=== PATIENT | male | born 1960 | race Caucasian/White ===

== ENCOUNTER 2020-04-20 11:02 | Inpatient (IN) | payer OTHER ==
[2020-04-20 11:29] VITALS: BMI 27.3
[2020-04-20 13:34] LABS: BASO % 0.2 % (0-2.0); EOS % 0.3 % (0-4.5); HEMATOCRIT 34.6 % (35.4-49); HEMOGLOBIN 11.3 GM/dL (11.7-16.9); LYMPH % 16.2 % (8-40); MCH 29.3 pg (25.7-33.7); MCHC 32.7 g/dl (32.0-35.9); MEAN CELL VOLUME 89.6 fl (80-96); MEAN PLT VOLUME 9.4 fl (7.5-11.1); MONO % 7.4 % (3.8-10.2); NEUT % 75.9 % (42.8-82.8); PLATELET COUNT 233 K/MM3 (134-434); RBC 3.86 M/mm3 (4.00-5.60); RDW 13.7 % (11.9-15.9); WHITE BLOOD COUNT 6.6 K/mm3 (4.0-10.0)
[2020-04-20 13:58] LABS: POTASSIUM 4.1 mmol/L (3.5-5.1)
[2020-04-20 14:00] LABS: ALBUMIN 2.9 g/dl (3.4-5.0); CALCIUM 8.8 mg/dL (8.5-10.1)
[2020-04-20 14:01] LABS: BLOOD UREA NITROGEN 25.2 mg/dL (7-18)
[2020-04-20 14:04] LABS: CREATININE 0.2 mg/dL (0.55-1.3)
[2020-04-20 14:05] LABS: BILIRUBIN,TOTAL 0.3 mg/dL (0.2-1)
[2020-04-20] MEDS ORDERED: VANCOMYCIN HCL 1,500 MG in DEXTROSE 5%-WATER - 500 ML IVPB ONE (14:31)
[2020-04-20] MEDS ORDERED: oxyCODONE HCL 5 MG TABLET PO ONE (16:10)
[2020-04-20] MEDS: GABAPENTIN 400 MG CAPSULE PO SCH ×2 (16:15→22:32)
[2020-04-20] MEDS ORDERED: oxyCODONE HCL 5 MG TABLET ONE (16:18)
[2020-04-20] MEDS ORDERED: traMADol HCL 50 MG TABLET PO PRN (18:34)
[2020-04-20] MEDS ORDERED: PATIENT'S OWN MEDICATION (NON-FORMULARY) (Gabapentin [Gabapentin] 800 MG Tablet) PO SCH (22:00)
[2020-04-20] MEDS: BACLOFEN 10 MG TABLET (FP) PO SCH (22:32)
[2020-04-20] MEDS ORDERED: ZOLPIDEM TARTRATE 5 MG TABLET PO ONE (23:10)
[2020-04-21] MEDS: GABAPENTIN 400 MG CAPSULE PO SCH ×3 (06:23→22:21)
[2020-04-21 09:16] LABS: HEMATOCRIT 34.1 % (35.4-49); HEMOGLOBIN 11.4 GM/dL (11.7-16.9); MCH 29.8 pg (25.7-33.7); MCHC 33.4 g/dl (32.0-35.9); MEAN CELL VOLUME 89.2 fl (80-96); MEAN PLT VOLUME 9.6 fl (7.5-11.1); PLATELET COUNT 237 K/MM3 (134-434); RBC 3.82 M/mm3 (4.00-5.60); RDW 13.8 % (11.9-15.9); WHITE BLOOD COUNT 7.9 K/mm3 (4.0-10.0)
[2020-04-21 09:32] LABS: POTASSIUM 3.9 mmol/L (3.5-5.1)
[2020-04-21 09:42] LABS: CALCIUM 8.5 mg/dL (8.5-10.1); MAGNESIUM 2.4 mg/dL (1.8-2.4)
[2020-04-21 09:43] LABS: ALBUMIN 2.9 g/dl (3.4-5.0)
[2020-04-21 09:45] LABS: CREATININE 0.3 mg/dL (0.55-1.3)
[2020-04-21 09:53] LABS: BILIRUBIN,TOTAL 0.4 mg/dL (0.2-1)
[2020-04-21] MEDS ORDERED: TIZANIDINE HCL 2 MG TABLET PO PRN (09:54)
[2020-04-21] MEDS ORDERED: LIDOCAINE 5% TOPICAL PATCH TP SCH (10:00)
[2020-04-21] MEDS ORDERED: TRAMADOL PO SCH (10:00)
[2020-04-21] MEDS ORDERED: NAPROXEN 500 MG TABLET PO SCH (10:00)
[2020-04-21] MEDS ORDERED: VANCOMYCIN 1 GM in D5W (PRE-DOCKED) 1,000 MG/250 ML IVPB SCH (10:00)
[2020-04-21] MEDS: BACLOFEN 10 MG TABLET (FP) PO SCH ×2 (10:38→22:21)
[2020-04-21] MEDS: CEFAZOLIN 2 GM/D5W 2 GM/50 ML ML IVPB SCH ×2 (10:39→17:16)
[2020-04-21] MEDS: ENOXAPARIN NA (PORCINE) 40 MG/0.4 ML DISP.SYRIN SQ SCH (10:39)
[2020-04-21] MEDS ORDERED: ACETAMINOPHEN 500 MG TABLET (FP) PO SCH (14:00)
[2020-04-21] MEDS: VANCOMYCIN 1 GRAM (PRE-DOCKED) 1,000 MG/250 ML BAG IVPB SCH (17:30)
[2020-04-21] MEDS ORDERED: LIDOCAINE PATCH REMOVAL MC SCH (22:00)
[2020-04-21] MEDS ORDERED: ZOLPIDEM TARTRATE 5 MG TABLET PO PRN (22:41)
[2020-04-21] MEDS ORDERED: oxyCODONE HCL 10 MG SUSTAINED ACTING TABLET PO ONE (23:15)
[2020-04-22] MEDS: CEFAZOLIN 2 GM/D5W 2 GM/50 ML ML IVPB SCH ×3 (01:57→17:17)
[2020-04-22] MEDS: VANCOMYCIN 1 GRAM (PRE-DOCKED) 1,000 MG/250 ML BAG IVPB SCH ×2 (06:33→17:58)
[2020-04-22] MEDS: GABAPENTIN 400 MG CAPSULE PO SCH ×3 (06:42→21:15)
[2020-04-22] MEDS: BACLOFEN 10 MG TABLET (FP) PO SCH ×2 (09:39→21:14)
[2020-04-22] MEDS: ENOXAPARIN NA (PORCINE) 40 MG/0.4 ML DISP.SYRIN SQ SCH (09:39)
[2020-04-22] MEDS ORDERED: ACETAMINOPHEN 325 MG TABLET (FP) PO PRN (10:25)
[2020-04-22] MEDS: oxyCODONE HCL 5 MG TABLET PO PRN ×2 (11:12→22:00)
[2020-04-22] MEDS: COLLAGENASE CLOSTRIDIUM HIST. 30 GRAMS TUBE TP SCH (11:13)
[2020-04-22] MEDS: AMINO ACIDS/PROTEIN HYDROLYS 30 ML LIQUID.PKT PO SCH (16:50)
[2020-04-22] MEDS: ZOLPIDEM TARTRATE 5 MG TABLET PO SCH (21:15)
[2020-04-23] MEDS: CEFAZOLIN 2 GM/D5W 2 GM/50 ML ML IVPB SCH ×2 (01:20→09:09)
[2020-04-23] MEDS: GABAPENTIN 400 MG CAPSULE PO SCH ×3 (05:21→21:10)
[2020-04-23] MEDS: VANCOMYCIN 1 GRAM (PRE-DOCKED) 1,000 MG/250 ML BAG IVPB SCH (05:39)
[2020-04-23] MEDS: VANCOMYCIN 1,000 MG in DEXTROSE 5%-WATER - 250 ML IVPB SCH (07:23)
[2020-04-23] MEDS: MULTIVIT-MINERALS ORAL LIQUID PO SCH (09:09)
[2020-04-23] MEDS: AMINO ACIDS/PROTEIN HYDROLYS 30 ML LIQUID.PKT PO SCH ×2 (09:09→17:56)
[2020-04-23] MEDS: BACLOFEN 10 MG TABLET (FP) PO SCH ×2 (09:10→21:10)
[2020-04-23] MEDS: ENOXAPARIN NA (PORCINE) 40 MG/0.4 ML DISP.SYRIN SQ SCH (09:10)
[2020-04-23] MEDS: oxyCODONE HCL 5 MG TABLET PO PRN (10:06)
[2020-04-23] MEDS: oxyCODONE HCL 5 MG TABLET PO SCH (14:28)
[2020-04-23] MEDS: COLLAGENASE CLOSTRIDIUM HIST. 30 GRAMS TUBE TP SCH (15:22)
[2020-04-23] MEDS ORDERED: PIPERACILLIN/TAZOBACTAM 3.375 GM VIAL IVPB ONE (17:32)
[2020-04-23] MEDS ORDERED: DEXTROSE 5%-WATER - 50 ML IVPB ONE (17:33)
[2020-04-23] MEDS: PIPERACILLIN/TAZOB 3.375 GM 3.375 GM in DEXTROSE 5%-WATER - 50 ML IVPB SCH (17:56)
[2020-04-23] MEDS ORDERED: traMADol HCL 50 MG TABLET PO SCH (20:00)
[2020-04-23] MEDS: ZOLPIDEM TARTRATE 5 MG TABLET PO SCH (23:14)
[2020-04-24] MEDS ORDERED: PIPERACILLIN/TAZOBACTAM 3.375 GM VIAL IVPB ONE ×4 (02:41→18:15)
[2020-04-24] MEDS ORDERED: DEXTROSE 5%-WATER - 50 ML IVPB ONE ×3 (02:41→17:16)
[2020-04-24] MEDS: PIPERACILLIN/TAZOB 3.375 GM 3.375 GM in DEXTROSE 5%-WATER - 50 ML IVPB SCH ×4 (02:44→17:36)
[2020-04-24] MEDS: GABAPENTIN 400 MG CAPSULE PO SCH ×3 (06:02→21:20)
[2020-04-24] MEDS: oxyCODONE HCL 5 MG TABLET PO SCH ×3 (06:02→15:18)
[2020-04-24 08:25] LABS: BASO % 0.5 % (0-2.0); EOS % 2.4 % (0-4.5); HEMATOCRIT 34.4 % (35.4-49); HEMOGLOBIN 11.2 GM/dL (11.7-16.9); LYMPH % 17.3 % (8-40); MCHC 32.7 g/dl (32.0-35.9); MEAN CELL VOLUME 88.9 fl (80-96); MEAN PLT VOLUME 9.1 fl (7.5-11.1); MONO % 8.3 % (3.8-10.2); NEUT % 71.5 % (42.8-82.8); PLATELET COUNT 235 K/MM3 (134-434); RBC 3.87 M/mm3 (4.00-5.60); RDW 13.8 % (11.9-15.9); WHITE BLOOD COUNT 7.8 K/mm3 (4.0-10.0)
[2020-04-24 09:02] LABS: POTASSIUM 3.8 mmol/L (3.5-5.1)
[2020-04-24 09:08] LABS: ALBUMIN 2.9 g/dl (3.4-5.0); BLOOD UREA NITROGEN 18.6 mg/dL (7-18); CALCIUM 8.7 mg/dL (8.5-10.1)
[2020-04-24 09:10] LABS: CREATININE 0.3 mg/dL (0.55-1.3)
[2020-04-24 09:12] LABS: BILIRUBIN,TOTAL 0.3 mg/dL (0.2-1); TOT PROT 6.8 g/dl (6.4-8.2)
[2020-04-24] MEDS: AMINO ACIDS/PROTEIN HYDROLYS 30 ML LIQUID.PKT PO SCH ×2 (09:17→17:24)
[2020-04-24] MEDS: MULTIVIT-MINERALS ORAL LIQUID PO SCH (09:17)
[2020-04-24] MEDS: BACLOFEN 10 MG TABLET (FP) PO SCH ×2 (09:17→21:21)
[2020-04-24] MEDS: ENOXAPARIN NA (PORCINE) 40 MG/0.4 ML DISP.SYRIN SQ SCH (10:39)
[2020-04-24] MEDS: COLLAGENASE CLOSTRIDIUM HIST. 30 GRAMS TUBE TP SCH (10:39)
[2020-04-24 11:55] LABS: ERYTHROCYTE SEDIMENTATION RATE 70 mm/hr (0-20)
[2020-04-24] MEDS ORDERED: MAGNESIUM HYDROX 2400MG/30ML ORAL SUSPENSION 30 ML CUP PO PRN ×2 (17:23→19:48)
[2020-04-24] MEDS ORDERED: LIDOCAINE HCL 1%, 10 MG/ML (20ML VIAL) ONE (18:05)
[2020-04-24] MEDS ORDERED: MIDAZOLAM HCL 2 MG/2 ML SINGLE DOSE VIAL ONE ×2 (18:32)
[2020-04-24] MEDS ORDERED: LIDOCAINE HCL 1%, 10 MG/ML (20ML VIAL) NR ONE (18:38)
[2020-04-24] MEDS: traMADol HCL 50 MG TABLET PO SCH (20:20)
[2020-04-24] MEDS: ZOLPIDEM TARTRATE 5 MG TABLET PO SCH (21:20)
[2020-04-24] MEDS: SENNOSIDES/DOCUSATE COMBO (SENNA PLUS) TABLET (UD) PO SCH (21:21)
[2020-04-24] MEDS ORDERED: SENNOSIDES/DOCUSATE COMBO (SENNA PLUS) TABLET (UD) PO SCH (22:00)
[2020-04-25] MEDS ORDERED: PIPERACILLIN/TAZOBACTAM 3.375 GM VIAL IVPB ONE ×3 (00:48→17:56)
[2020-04-25] MEDS ORDERED: DEXTROSE 5%-WATER - 50 ML IVPB ONE ×3 (00:48→17:56)
[2020-04-25] MEDS: PIPERACILLIN/TAZOB 3.375 GM 3.375 GM in DEXTROSE 5%-WATER - 50 ML IVPB SCH ×3 (01:02→17:59)
[2020-04-25] MEDS: GABAPENTIN 400 MG CAPSULE PO SCH ×3 (05:47→22:37)
[2020-04-25] MEDS: oxyCODONE HCL 5 MG TABLET PO SCH ×3 (06:03→17:58)
[2020-04-25 08:18] LABS: BASO % 0.5 % (0-2.0); EOS % 1.1 % (0-4.5); HEMATOCRIT 34.9 % (35.4-49); HEMOGLOBIN 11.2 GM/dL (11.7-16.9); LYMPH % 11.3 % (8-40); MCH 28.7 pg (25.7-33.7); MCHC 32.1 g/dl (32.0-35.9); MEAN CELL VOLUME 89.3 fl (80-96); MONO % 5.8 % (3.8-10.2); NEUT % 81.3 % (42.8-82.8); PLATELET COUNT 243 K/MM3 (134-434); RBC 3.91 M/mm3 (4.00-5.60); RDW 13.5 % (11.9-15.9); WHITE BLOOD COUNT 8.6 K/mm3 (4.0-10.0)
[2020-04-25 08:26] LABS: POTASSIUM 3.9 mmol/L (3.5-5.1)
[2020-04-25 08:32] LABS: ALBUMIN 3.1 g/dl (3.4-5.0); BLOOD UREA NITROGEN 22.8 mg/dL (7-18); CALCIUM 8.4 mg/dL (8.5-10.1)
[2020-04-25 08:35] LABS: BILIRUBIN,TOTAL 0.4 mg/dL (0.2-1); CREATININE 0.2 mg/dL (0.55-1.3); TOT PROT 7.3 g/dl (6.4-8.2)
[2020-04-25] MEDS: ACETAMINOPHEN 325 MG TABLET (FP) PO PRN (09:33)
[2020-04-25] MEDS: AMINO ACIDS/PROTEIN HYDROLYS 30 ML LIQUID.PKT PO SCH ×2 (09:34→17:59)
[2020-04-25] MEDS: BACLOFEN 10 MG TABLET (FP) PO SCH ×2 (09:34→22:37)
[2020-04-25] MEDS ORDERED: PT OWN MED DRAWER 7, Y5N ONE ×2 (09:36→14:52)
[2020-04-25] MEDS: MULTIVIT-MINERALS ORAL LIQUID PO SCH (09:37)
[2020-04-25] MEDS: ENOXAPARIN NA (PORCINE) 40 MG/0.4 ML DISP.SYRIN SQ SCH (09:38)
[2020-04-25] MEDS: COLLAGENASE CLOSTRIDIUM HIST. 30 GRAMS TUBE TP SCH ×2 (11:13→18:00)
[2020-04-25] MEDS: SENNOSIDES/DOCUSATE COMBO (SENNA PLUS) TABLET (UD) PO SCH (22:37)
[2020-04-25] MEDS: traMADol HCL 50 MG TABLET PO SCH (22:37)
[2020-04-25] MEDS: ZOLPIDEM TARTRATE 5 MG TABLET PO SCH (22:38)
[2020-04-26] MEDS ORDERED: PIPERACILLIN/TAZOBACTAM 3.375 GM VIAL IVPB ONE ×3 (01:57→16:26)
[2020-04-26] MEDS ORDERED: DEXTROSE 5%-WATER - 50 ML IVPB ONE ×3 (01:57→16:26)
[2020-04-26] MEDS: PIPERACILLIN/TAZOB 3.375 GM 3.375 GM in DEXTROSE 5%-WATER - 50 ML IVPB SCH ×3 (02:00→17:23)
[2020-04-26] MEDS: GABAPENTIN 400 MG CAPSULE PO SCH ×3 (06:16→21:34)
[2020-04-26] MEDS: oxyCODONE HCL 5 MG TABLET PO SCH ×2 (06:16→14:55)
[2020-04-26 08:13] LABS: BASO % 0.6 % (0-2.0); HEMATOCRIT 34.5 % (35.4-49); HEMOGLOBIN 11.2 GM/dL (11.7-16.9); LYMPH % 21.7 % (8-40); MCH 28.8 pg (25.7-33.7); MCHC 32.5 g/dl (32.0-35.9); MEAN CELL VOLUME 88.7 fl (80-96); MEAN PLT VOLUME 9.3 fl (7.5-11.1); MONO % 10.5 % (3.8-10.2); NEUT % 65.2 % (42.8-82.8); PLATELET COUNT 214 K/MM3 (134-434); RDW 13.5 % (11.9-15.9); WHITE BLOOD COUNT 6.4 K/mm3 (4.0-10.0)
[2020-04-26 08:23] LABS: INR 1.19 (0.83-1.09); PROTHROMBIN TIME (PATIENT) 14.3 SEC (9.7-13.0)
[2020-04-26 08:25] LABS: POTASSIUM 3.6 mmol/L (3.5-5.1)
[2020-04-26 08:48] LABS: ALBUMIN 2.9 g/dl (3.4-5.0); BLOOD UREA NITROGEN 23.9 mg/dL (7-18); CALCIUM 8.8 mg/dL (8.5-10.1)
[2020-04-26 08:52] LABS: CREATININE 0.3 mg/dL (0.55-1.3)
[2020-04-26 08:53] LABS: BILIRUBIN,TOTAL 0.4 mg/dL (0.2-1); TOT PROT 6.8 g/dl (6.4-8.2)
[2020-04-26] MEDS: AMINO ACIDS/PROTEIN HYDROLYS 30 ML LIQUID.PKT PO SCH ×2 (10:24→17:23)
[2020-04-26] MEDS: ENOXAPARIN NA (PORCINE) 40 MG/0.4 ML DISP.SYRIN SQ SCH (10:24)
[2020-04-26] MEDS: BACLOFEN 10 MG TABLET (FP) PO SCH ×2 (10:24→21:33)
[2020-04-26] MEDS ORDERED: PT OWN MED DRAWER 7, Y5N ONE (10:31)
[2020-04-26] MEDS: MULTIVIT-MINERALS ORAL LIQUID PO SCH (10:31)
[2020-04-26] MEDS: COLLAGENASE CLOSTRIDIUM HIST. 30 GRAMS TUBE TP SCH (14:58)
[2020-04-26] MEDS: ZOLPIDEM TARTRATE 5 MG TABLET PO SCH (21:33)
[2020-04-26] MEDS: traMADol HCL 50 MG TABLET PO SCH (21:33)
[2020-04-26] MEDS: SENNOSIDES/DOCUSATE COMBO (SENNA PLUS) TABLET (UD) PO SCH (21:34)
[2020-04-27] MEDS ORDERED: DEXTROSE 5%-WATER - 50 ML IVPB ONE ×2 (01:22→09:23)
[2020-04-27] MEDS ORDERED: PIPERACILLIN/TAZOBACTAM 3.375 GM VIAL IVPB ONE ×2 (01:22→09:23)
[2020-04-27] MEDS: PIPERACILLIN/TAZOB 3.375 GM 3.375 GM in DEXTROSE 5%-WATER - 50 ML IVPB SCH ×2 (01:25→09:34)
[2020-04-27] MEDS: ACETAMINOPHEN 325 MG TABLET (FP) PO PRN (01:31)
[2020-04-27] MEDS: oxyCODONE HCL 5 MG TABLET PO SCH ×2 (06:43→14:35)
[2020-04-27] MEDS: GABAPENTIN 400 MG CAPSULE PO SCH ×2 (06:44→14:37)
[2020-04-27 06:50] VITALS: BP 121/58; PULSE 59; TEMP 98.2
[2020-04-27] MEDS: AMINO ACIDS/PROTEIN HYDROLYS 30 ML LIQUID.PKT PO SCH (08:29)
[2020-04-27 08:59] LABS: BASO % 0.8 % (0-2.0); EOS % 1.9 % (0-4.5); HEMATOCRIT 32.3 % (35.4-49); HEMOGLOBIN 10.6 GM/dL (11.7-16.9); LYMPH % 20.8 % (8-40); MCH 29.4 pg (25.7-33.7); MEAN CELL VOLUME 89.2 fl (80-96); MEAN PLT VOLUME 9.1 fl (7.5-11.1); MONO % 9.6 % (3.8-10.2); NEUT % 66.9 % (42.8-82.8); PLATELET COUNT 219 K/MM3 (134-434); RBC 3.62 M/mm3 (4.00-5.60); RDW 13.9 % (11.9-15.9); WHITE BLOOD COUNT 5.6 K/mm3 (4.0-10.0)
[2020-04-27 09:15] LABS: POTASSIUM 3.7 mmol/L (3.5-5.1)
[2020-04-27 09:24] LABS: ALBUMIN 2.9 g/dl (3.4-5.0); CALCIUM 8.5 mg/dL (8.5-10.1)
[2020-04-27 09:25] LABS: BLOOD UREA NITROGEN 20.8 mg/dL (7-18)
[2020-04-27 09:28] LABS: CREATININE 0.3 mg/dL (0.55-1.3)
[2020-04-27 09:29] LABS: BILIRUBIN,TOTAL 0.6 mg/dL (0.2-1); TOT PROT 6.8 g/dl (6.4-8.2)
[2020-04-27] MEDS: BACLOFEN 10 MG TABLET (FP) PO SCH (09:33)
[2020-04-27] MEDS: MULTIVIT-MINERALS ORAL LIQUID PO SCH (09:33)
[2020-04-27] MEDS: ENOXAPARIN NA (PORCINE) 40 MG/0.4 ML DISP.SYRIN SQ SCH (09:33)
[2020-04-27] MEDS: COLLAGENASE CLOSTRIDIUM HIST. 30 GRAMS TUBE TP SCH (12:00)
== END 2020-04-27 15:35 | disposition home health service (06) | DRG 982 ==
LOC: JER 11:02 → JERBED 14:47 → J8W 20:32
PROVIDERS: ATTEND Student in an Organized Health Care Education/Training Program
PROC: 0LBN0ZZ Excision of Right Lower Leg Tendon, Open Approach (ICD-10-PCS; principal; 2020-04-24 18:30)
PROC: 2W1LX6Z Compression of Right Lower Extremity using Pressure Dressing (ICD-10-PCS; 2020-04-27)
DX: L97.219 Non-pressure chronic ulcer of right calf with unspecified severity (principal); G82.20 Paraplegia, unspecified; L03.115 Cellulitis of right lower limb; E78.5 Hyperlipidemia, unspecified; M62.838 Other muscle spasm; G47.00 Insomnia, unspecified; N31.9 Neuromuscular dysfunction of bladder, unspecified
CPT/HCPCS: 36415; 71045-TC-FY; 80053; 83735; 84100; 85025; 85027; 85610; 85651; 87040; 87070; 87186; 87205; 88304-TC; 93005; 93010; 94760; 99285-25; C9803; E0372; G0463-25; J0475; U0003

== ENCOUNTER 2020-06-17 20:03 | Inpatient (IN) | payer OTHER ==
[2020-06-17] MEDS ORDERED: RAPID SEQUENCE INTUBATION KIT NR ONE (20:45)
[2020-06-17] MEDS ORDERED: SODIUM CHLORIDE 0.9% 1000 ML INFUS.BAG IV ONE (21:03)
[2020-06-17] MEDS ORDERED: MIDAZOLAM 100 MG in SODIUM CHLORIDE 100 ML IVPB SCH (21:15)
[2020-06-17] MEDS ORDERED: FENTANYL NS IVPB 500 MCG/100 ML BAG IVPB ONE (21:29)
[2020-06-17 21:35] LABS: BASO % 0.2 % (0-2.0); EOS % 0.1 % (0-4.5); HEMATOCRIT 38.5 % (35.4-49); HEMOGLOBIN 12.5 GM/dL (11.7-16.9); LYMPH % 2.6 % (8-40); MCH 29.3 pg (25.7-33.7); MCHC 32.4 g/dl (32.0-35.9); MEAN CELL VOLUME 90.4 fl (80-96); MEAN PLT VOLUME 10.1 fl (7.5-11.1); MONO % 7.7 % (3.8-10.2); NEUT % 89.4 % (42.8-82.8); PLATELET COUNT 182 K/MM3 (134-434); RBC 4.26 M/mm3 (4.00-5.60); RDW 13.5 % (11.9-15.9); WHITE BLOOD COUNT 28.1 K/mm3 (4.0-10.0)
[2020-06-17] MEDS ORDERED: MIDAZOLAM 100 MG/100 ML MG IVPB ONE (21:36)
[2020-06-17] MEDS ORDERED: PROPOFOL 200 MG/20 ML VIAL IVPUSH ONE (21:39)
[2020-06-17] MEDS ORDERED: ROCURONIUM BROMIDE 50 MG/5 ML SYRINGE IV ONE (21:39)
[2020-06-17 21:42] LABS: INR 1.28 (0.83-1.09); PROTHROMBIN TIME (PATIENT) 15.4 SEC (9.7-13.0)
[2020-06-17 21:45] LABS: ACTIVATED PTT 36.5 SECONDS (25.2-36.5)
[2020-06-17] MEDS ORDERED: VANCOMYCIN 1 GM in D5W (PRE-DOCKED) 1,000 MG/250 ML IVPB ONE (21:48)
[2020-06-17] MEDS ORDERED: PIPERACILLIN/TAZOB 4.5 GM 4.5 GM in DEXTROSE 5%-WATER 100 ML IVPB ONE (21:48)
[2020-06-17] MEDS ORDERED: PIPERACILLIN/TAZOB 4.5 GM 4.5 GM/100 ML BAG IVPB ONE (21:56)
[2020-06-17] MEDS: FENTANYL NS IVPB 500 MCG/100 ML BAG IVPB SCH (21:59)
[2020-06-17 22:00] LABS: CHLORIDE 99 mmol/L (98-107); POTASSIUM 3.6 mmol/L (3.5-5.1); SODIUM 135 mmol/L (136-145)
[2020-06-17 22:02] LABS: CALCIUM 8.5 mg/dL (8.5-10.1)
[2020-06-17 22:03] LABS: ALBUMIN 3.2 g/dl (3.4-5.0); ANION GAP 6 MMOL/L (8-16); BLOOD UREA NITROGEN 13.7 mg/dL (7-18); CO2 30 mmol/L (21-32); GLUCOSE,RANDOM 105 mg/dL (74-106)
[2020-06-17 22:06] LABS: BILIRUBIN,DIRECT 0.3 mg/dL (0.0-0.2); CREATININE 0.4 mg/dL (0.55-1.3); SGOT/AST 34 U/L (15-37); SGPT/ALT 41 U/L (13-61)
[2020-06-17 22:08] LABS: BILIRUBIN,TOTAL 0.4 mg/dL (0.2-1); TOT PROT 7.6 g/dl (6.4-8.2)
[2020-06-17 22:09] LABS: ALK PHOS 139 U/L (45-117)
[2020-06-17 22:13] LABS: ANISOCYTOSIS 0; MACROCYTOSIS 0; PLATELET ESTIMATE NORMAL
[2020-06-17 22:14] LABS: LDH 159 U/L (87-246)
[2020-06-17 22:46] LABS: ARTERIAL BLD GAS O2 SATURATION 83.9 mmHg (95-98); ARTERIAL BLOOD GAS BASE EXCESS 1.6 mmol/L (-2-2); ARTERIAL BLOOD GAS PO2 50.3 mmHg (80-100); ARTERIAL BLOOD GAS pH 7.364 (7.350-7.450)
[2020-06-17 22:47] LABS: ALLENS TEST POSITIVE; VENT MODE A/C; VENT RATE 12
[2020-06-17] MEDS ORDERED: NIFEdipine E.R. 30 MG TABLET ONE (23:09)
[2020-06-17] MEDS ORDERED: APIXABAN 5 MG TABLET ONE (23:09)
[2020-06-17] MEDS ORDERED: CARVEDILOL 3.125 MG TABLET (FP) ONE (23:09)
[2020-06-17 23:14] LABS: EPI CELLS 0 /uL (0-25.1); HYALINE CASTS 1 /uL (0-3.1); URINE APPEARANCE TURBID; URINE BACTERIA >9,000 /uL (0-1359); URINE BILIRUBIN NEGATIVE (NEGATIVE); URINE COLOR DK YELLOW; URINE GLUCOSE (UA) NEGATIVE (NEGATIVE); URINE KETONE TRACE (NEGATIVE); URINE LEUK ESTERASE 2+ (NEGATIVE); URINE NITRITE NEGATIVE (NEGATIVE); URINE PROTEIN 3+ (NEGATIVE); URINE RBC 3901 /uL (0-23.9); URINE UROBILINOGEN 0.2 mg/dL (0.2-1.0); URINE WBC 3035 /uL (0-25.8)
[2020-06-17] MEDS: MIDAZOLAM 100 MG/100 ML MG IVPB SCH (23:45)
[2020-06-18] MEDS: CHLORHEXIDINE GLUCONATE 4% CLEANSER FOR DECOLONIZATION TP SCH ×2 (00:30→22:07)
[2020-06-18] MEDS ORDERED: PNEUMOC 13-VAL CONJ-DIP CRM/PF 0.5 ML DISP.SYRIN IM ONE (00:34)
[2020-06-18] MEDS: MUPIROCIN 2% TOPICAL OINTMENT FOR DECOLONIZATION NS SCH ×3 (00:35→22:07)
[2020-06-18] MEDS: VANCOMYCIN HCL 1,250 MG in DEXTROSE 5%-WATER - 250 ML IVPB SCH ×3 (02:31→18:25)
[2020-06-18 07:07] LABS: BASO % 0.2 % (0-2.0); HEMATOCRIT 34.3 % (35.4-49); LYMPH % 3.6 % (8-40); MCH 29.1 pg (25.7-33.7); MCHC 32.2 g/dl (32.0-35.9); MEAN CELL VOLUME 90.4 fl (80-96); MEAN PLT VOLUME 10.5 fl (7.5-11.1); MONO % 8.1 % (3.8-10.2); NEUT % 88.1 % (42.8-82.8); PLATELET COUNT 167 K/MM3 (134-434); RBC 3.79 M/mm3 (4.00-5.60); RDW 13.5 % (11.9-15.9)
[2020-06-18 07:15] LABS: INR 1.45 (0.83-1.09); PROTHROMBIN TIME (PATIENT) 17.4 SEC (9.7-13.0)
[2020-06-18 07:17] LABS: ACTIVATED PTT 31.7 SECONDS (25.2-36.5)
[2020-06-18] MEDS: HEPARIN NA (PORCINE) 5,000 UNITS/ML 1ML VIAL SQ SCH ×3 (07:31→22:07)
[2020-06-18 07:32] LABS: POTASSIUM 3.2 mmol/L (3.5-5.1)
[2020-06-18 07:35] LABS: ALBUMIN 2.6 g/dl (3.4-5.0); BLOOD UREA NITROGEN 18.2 mg/dL (7-18); CALCIUM 8.1 mg/dL (8.5-10.1)
[2020-06-18 07:41] LABS: BILIRUBIN,TOTAL 0.9 mg/dL (0.2-1); CREATININE 0.3 mg/dL (0.55-1.3)
[2020-06-18] MEDS: MIDAZOLAM 100 MG/100 ML MG IVPB SCH ×3 (08:45→22:07)
[2020-06-18 08:46] LABS: ALLENS TEST POSITIVE; ARTERIAL BLD GAS O2 SATURATION 98.4 mmHg (95-98); ARTERIAL BLOOD GAS BASE EXCESS 1.5 mmol/L (-2-2); ARTERIAL BLOOD GAS PO2 123.1 mmHg (80-100); ARTERIAL BLOOD GAS pH 7.389 (7.350-7.450)
[2020-06-18 08:47] LABS: VENT MODE A/C; VENT RATE 12
[2020-06-18 08:57] LABS: ANISOCYTOSIS 0; MACROCYTOSIS 0; PLATELET ESTIMATE NORMAL
[2020-06-18] MEDS: KCL 10 MEQ IVPB 10 MEQ/100 ML INFUS.BAG IVPB SCH ×3 (09:00→11:00)
[2020-06-18] MEDS: FENTANYL NS IVPB 500 MCG/100 ML BAG IVPB SCH ×4 (09:00→22:07)
[2020-06-18] MEDS: PANTOPRAZOLE SODIUM 40 MG VIAL IVPUSH SCH (10:00)
[2020-06-18] MEDS ORDERED: PIPERACILLIN/TAZOBACTAM 4.5 GM VIAL IVPB ONE ×3 (10:10→22:02)
[2020-06-18] MEDS ORDERED: DEXTROSE 5%-WATER 100 ML IVPB ONE ×3 (10:10→22:02)
[2020-06-18] MEDS: PIPERACILLIN/TAZOB 4.5 GM 4.5 GM in DEXTROSE 5%-WATER 100 ML IVPB SCH ×2 (11:00→18:26)
[2020-06-18] MEDS ORDERED: PNEUMOCOCCAL 23 VACCINE 0.5 ML VIAL IM ONE (13:00)
[2020-06-18] MEDS: AMINO ACIDS/PROTEIN HYDROLYS 30 ML LIQUID.PKT PO SCH (18:23)
[2020-06-18] MEDS: VANCOMYCIN/WATER 1,250 MG/250 ML BAG IVPB SCH ×2 (22:20→22:21)
[2020-06-19] MEDS: MIDAZOLAM 100 MG/100 ML MG IVPB SCH ×2 (01:01→23:13)
[2020-06-19] MEDS: PIPERACILLIN/TAZOB 4.5 GM 4.5 GM in DEXTROSE 5%-WATER 100 ML IVPB SCH ×2 (01:02→23:07)
[2020-06-19] MEDS ORDERED: PT OWN MED DRAWER 7, Y5N ONE (05:15)
[2020-06-19] MEDS: HEPARIN NA (PORCINE) 5,000 UNITS/ML 1ML VIAL SQ SCH ×3 (05:19→23:12)
[2020-06-19] MEDS ORDERED: VANCOMYCIN HCL 1,250 MG in DEXTROSE 5%-WATER - 250 ML IVPB SCH (06:00)
[2020-06-19] MEDS ORDERED: FENTANYL NS IVPB 500 MCG/100 ML BAG IVPB ONE (07:34)
[2020-06-19 07:51] LABS: HEMATOCRIT 34.6 % (35.4-49); HEMOGLOBIN 11.3 GM/dL (11.7-16.9); MCH 29.7 pg (25.7-33.7); MCHC 32.6 g/dl (32.0-35.9); MEAN CELL VOLUME 90.9 fl (80-96); MEAN PLT VOLUME 10.2 fl (7.5-11.1); PLATELET COUNT 143 K/MM3 (134-434); RDW 13.7 % (11.9-15.9); WHITE BLOOD COUNT 19.3 K/mm3 (4.0-10.0)
[2020-06-19 08:16] LABS: CALCIUM 8.1 mg/dL (8.5-10.1)
[2020-06-19 08:17] LABS: ALBUMIN 2.2 g/dl (3.4-5.0); BLOOD UREA NITROGEN 32.9 mg/dL (7-18); MAGNESIUM 2.1 mg/dL (1.8-2.4)
[2020-06-19 08:20] LABS: BILIRUBIN,TOTAL 0.5 mg/dL (0.2-1); CREATININE 1.3 mg/dL (0.55-1.3); PHOSPHOROUS 4.4 mg/dL (2.5-4.9); TOT PROT 5.9 g/dl (6.4-8.2)
[2020-06-19] MEDS: PANTOPRAZOLE SODIUM 40 MG VIAL IVPUSH SCH (10:17)
[2020-06-19] MEDS: MUPIROCIN 2% TOPICAL OINTMENT FOR DECOLONIZATION NS SCH ×2 (10:17→23:13)
[2020-06-19] MEDS: AMINO ACIDS/PROTEIN HYDROLYS 30 ML LIQUID.PKT PO SCH ×2 (10:17→17:26)
[2020-06-19] MEDS: DEXAMETHASONE SOD PHOSPHATE 10 MG/1 ML VIAL IVPUSH SCH (11:56)
[2020-06-19] MEDS ORDERED: DEXTROSE 5%-WATER - 50 ML IVPB ONE ×2 (16:05→17:14)
[2020-06-19] MEDS ORDERED: PIPERACILLIN/TAZOBACTAM 3.375 GM VIAL IVPB ONE ×2 (16:05→17:13)
[2020-06-19] MEDS: PIPERACILLIN/TAZOB 3.375 GM 3.375 GM in DEXTROSE 5%-WATER - 50 ML IVPB SCH ×2 (16:09→17:26)
[2020-06-19] MEDS ORDERED: ACETAMINOPHEN 1000 MG/100 ML VIAL (NON FORMULARY) IVPB ONE (18:05)
[2020-06-19] MEDS ORDERED: ACETAMINOPHEN INJECTION 100 ML IVPB ONE (18:06)
[2020-06-19] MEDS ORDERED: SODIUM CHLORIDE 0.9% 500 ML INFUS.BAG IV ONE (21:19)
[2020-06-19] MEDS: VANCOMYCIN/WATER 1,250 MG/250 ML BAG IVPB SCH (23:07)
[2020-06-19] MEDS: FENTANYL NS IVPB 500 MCG/100 ML BAG IVPB SCH (23:08)
[2020-06-19] MEDS: CHLORHEXIDINE GLUCONATE 4% CLEANSER FOR DECOLONIZATION TP SCH (23:13)
[2020-06-19] MEDS ORDERED: SODIUM CHLORIDE 1,000 ML IV SCH (23:45)
[2020-06-20] MEDS ORDERED: PIPERACILLIN/TAZOBACTAM 3.375 GM VIAL IVPB ONE ×3 (00:45→17:11)
[2020-06-20] MEDS ORDERED: DEXTROSE 5%-WATER - 50 ML IVPB ONE ×3 (00:45→17:12)
[2020-06-20] MEDS: PIPERACILLIN/TAZOB 3.375 GM 3.375 GM in DEXTROSE 5%-WATER - 50 ML IVPB SCH ×3 (01:39→18:30)
[2020-06-20] MEDS: HEPARIN NA (PORCINE) 5,000 UNITS/ML 1ML VIAL SQ SCH ×3 (05:59→21:49)
[2020-06-20 07:05] LABS: HEMOGLOBIN 10.6 GM/dL (11.7-16.9); MCH 29.5 pg (25.7-33.7); MEAN CELL VOLUME 89.3 fl (80-96); PLATELET COUNT 149 K/MM3 (134-434); RBC 3.58 M/mm3 (4.00-5.60); RDW 13.6 % (11.9-15.9); WHITE BLOOD COUNT 11.1 K/mm3 (4.0-10.0)
[2020-06-20 07:22] LABS: POTASSIUM 4.4 mmol/L (3.5-5.1)
[2020-06-20 07:25] LABS: ALBUMIN 2.1 g/dl (3.4-5.0); BLOOD UREA NITROGEN 49.6 mg/dL (7-18); MAGNESIUM 2.8 mg/dL (1.8-2.4)
[2020-06-20 07:28] LABS: BILIRUBIN,TOTAL 0.4 mg/dL (0.2-1); CREATININE 2.1 mg/dL (0.55-1.3); PHOSPHOROUS 4.5 mg/dL (2.5-4.9)
[2020-06-20 07:29] LABS: TOT PROT 5.9 g/dl (6.4-8.2)
[2020-06-20] MEDS ORDERED: SODIUM CHLORIDE 500 ML IV STA (08:51)
[2020-06-20] MEDS: AMINO ACIDS/PROTEIN HYDROLYS 30 ML LIQUID.PKT PO SCH ×2 (08:54→18:30)
[2020-06-20] MEDS ORDERED: PT OWN MED DRAWER 7, Y5N ONE ×2 (09:38→17:11)
[2020-06-20] MEDS: DEXAMETHASONE SOD PHOSPHATE 10 MG/1 ML VIAL IVPUSH SCH (11:53)
[2020-06-20] MEDS: PANTOPRAZOLE SODIUM 40 MG VIAL IVPUSH SCH (11:53)
[2020-06-20] MEDS: MUPIROCIN 2% TOPICAL OINTMENT FOR DECOLONIZATION NS SCH (11:54)
[2020-06-20] MEDS ORDERED: SODIUM CHLORIDE 1,000 ML IV SCH (12:15)
[2020-06-20] MEDS ORDERED: PROPOFOL 200 MG/20 ML VIAL IVPUSH PRN (17:52)
[2020-06-20] MEDS ORDERED: DEXMEDETOMIDINE IN 0.9 % NACL 200 MCG/50 ML EACH IVPB SCH (20:00)
[2020-06-20] MEDS: CHLORHEXIDINE GLUCONATE 4% CLEANSER FOR DECOLONIZATION TP SCH (21:49)
[2020-06-20] MEDS ORDERED: MIDAZOLAM HCL 2 MG/2 ML SINGLE DOSE VIAL IVPUSH ONE (22:50)
[2020-06-20] MEDS ORDERED: MIDAZOLAM HCL 2 MG/2 ML SINGLE DOSE VIAL ONE (22:52)
[2020-06-21] MEDS: PIPERACILLIN/TAZOB 3.375 GM 3.375 GM in DEXTROSE 5%-WATER - 50 ML IVPB SCH ×3 (02:23→17:32)
[2020-06-21] MEDS: MIDAZOLAM 100 MG/100 ML MG IVPB SCH (07:23)
[2020-06-21] MEDS: HEPARIN NA (PORCINE) 5,000 UNITS/ML 1ML VIAL SQ SCH ×3 (07:23→21:50)
[2020-06-21 07:41] LABS: HEMATOCRIT 31.8 % (35.4-49); HEMOGLOBIN 10.5 GM/dL (11.7-16.9); MCH 29.5 pg (25.7-33.7); MEAN CELL VOLUME 89.2 fl (80-96); MEAN PLT VOLUME 10.4 fl (7.5-11.1); PLATELET COUNT 190 K/MM3 (134-434); RBC 3.57 M/mm3 (4.00-5.60); RDW 13.8 % (11.9-15.9); WHITE BLOOD COUNT 12.8 K/mm3 (4.0-10.0)
[2020-06-21 08:10] LABS: POTASSIUM 4.4 mmol/L (3.5-5.1)
[2020-06-21 08:14] LABS: CALCIUM 7.8 mg/dL (8.5-10.1)
[2020-06-21 08:15] LABS: ALBUMIN 2.1 g/dl (3.4-5.0); MAGNESIUM 3.2 mg/dL (1.8-2.4)
[2020-06-21 08:17] LABS: CREATININE 2.6 mg/dL (0.55-1.3)
[2020-06-21 08:18] LABS: PHOSPHOROUS 4.5 mg/dL (2.5-4.9)
[2020-06-21 08:19] LABS: BILIRUBIN,TOTAL 0.4 mg/dL (0.2-1)
[2020-06-21] MEDS: AMINO ACIDS/PROTEIN HYDROLYS 30 ML LIQUID.PKT PO SCH ×2 (09:00→16:55)
[2020-06-21] MEDS ORDERED: DEXTROSE 5%-WATER - 50 ML IVPB ONE ×2 (09:51→16:44)
[2020-06-21] MEDS ORDERED: PIPERACILLIN/TAZOBACTAM 3.375 GM VIAL IVPB ONE ×2 (09:51→16:43)
[2020-06-21] MEDS: DEXAMETHASONE SOD PHOSPHATE 10 MG/1 ML VIAL IVPUSH SCH (09:59)
[2020-06-21] MEDS: PANTOPRAZOLE SODIUM 40 MG VIAL IVPUSH SCH (09:59)
[2020-06-21] MEDS: MUPIROCIN 2% TOPICAL OINTMENT FOR DECOLONIZATION NS SCH ×2 (10:04→21:50)
[2020-06-21] MEDS: DEXTROSE 5%-0.45% SALINE 1,000 ML IV SCH (11:50)
[2020-06-21] MEDS: CHLORHEXIDINE GLUCONATE 4% CLEANSER FOR DECOLONIZATION TP SCH (21:50)
[2020-06-22] MEDS ORDERED: DEXTROSE 5%-WATER - 50 ML IVPB ONE ×3 (01:23→17:28)
[2020-06-22] MEDS ORDERED: PIPERACILLIN/TAZOBACTAM 3.375 GM VIAL IVPB ONE ×3 (01:23→17:27)
[2020-06-22] MEDS: PIPERACILLIN/TAZOB 3.375 GM 3.375 GM in DEXTROSE 5%-WATER - 50 ML IVPB SCH ×3 (02:51→17:46)
[2020-06-22] MEDS: HEPARIN NA (PORCINE) 5,000 UNITS/ML 1ML VIAL SQ SCH ×3 (06:50→21:25)
[2020-06-22] MEDS: MIDAZOLAM 100 MG/100 ML MG IVPB SCH (06:51)
[2020-06-22 07:33] LABS: BASO % 0.1 % (0-2.0); HEMATOCRIT 30.7 % (35.4-49); HEMOGLOBIN 10.3 GM/dL (11.7-16.9); LYMPH % 7.3 % (8-40); MCH 29.6 pg (25.7-33.7); MCHC 33.6 g/dl (32.0-35.9); MEAN CELL VOLUME 88.1 fl (80-96); MEAN PLT VOLUME 9.4 fl (7.5-11.1); MONO % 12.7 % (3.8-10.2); NEUT % 79.9 % (42.8-82.8); PLATELET COUNT 231 K/MM3 (134-434); RBC 3.48 M/mm3 (4.00-5.60); RDW 13.3 % (11.9-15.9); WHITE BLOOD COUNT 13.5 K/mm3 (4.0-10.0)
[2020-06-22 07:49] LABS: POTASSIUM 3.8 mmol/L (3.5-5.1)
[2020-06-22 07:57] LABS: ALBUMIN 2.2 g/dl (3.4-5.0); BLOOD UREA NITROGEN 66.6 mg/dL (7-18); MAGNESIUM 3.1 mg/dL (1.8-2.4)
[2020-06-22 07:58] LABS: PHOSPHOROUS 4.5 mg/dL (2.5-4.9)
[2020-06-22 07:59] LABS: BILIRUBIN,TOTAL 0.3 mg/dL (0.2-1); CREATININE 2.8 mg/dL (0.55-1.3); TOT PROT 5.9 g/dl (6.4-8.2)
[2020-06-22] MEDS: AMINO ACIDS/PROTEIN HYDROLYS 30 ML LIQUID.PKT PO SCH ×2 (11:57→17:46)
[2020-06-22] MEDS: MUPIROCIN 2% TOPICAL OINTMENT FOR DECOLONIZATION NS SCH (11:57)
[2020-06-22] MEDS: DEXAMETHASONE SOD PHOSPHATE 10 MG/1 ML VIAL IVPUSH SCH (11:57)
[2020-06-22] MEDS: PANTOPRAZOLE SODIUM 40 MG VIAL IVPUSH SCH (11:57)
[2020-06-22] MEDS: DEXTROSE 5%-0.45% SALINE 1,000 ML IV SCH (11:58)
[2020-06-22] MEDS ORDERED: SODIUM CHLORIDE 1,000 ML IV SCH (12:00)
[2020-06-22] MEDS ORDERED: DEXMEDETOMIDINE IN 0.9 % NACL 200 MCG/50 ML EACH IVPB SCH (13:25)
[2020-06-22] MEDS ORDERED: amLODIPine BESYLATE 5 MG TABLET (FP) PO SCH (17:15)
[2020-06-22] MEDS ORDERED: DEXTROSE 5%-0.45% SALINE 1,000 ML IV SCH (20:12)
[2020-06-22] MEDS: BACLOFEN 10 MG TABLET (FP) PO SCH (21:26)
[2020-06-22] MEDS ORDERED: CHLORHEXIDINE GLUCONATE 4% CLEANSER FOR DECOLONIZATION TP SCH (22:00)
[2020-06-22] MEDS: SODIUM CHLORIDE 1,000 ML IV SCH (23:25)
[2020-06-23] MEDS ORDERED: DEXTROSE 5%-WATER - 50 ML IVPB ONE ×3 (01:04→17:12)
[2020-06-23] MEDS ORDERED: PIPERACILLIN/TAZOBACTAM 3.375 GM VIAL IVPB ONE ×2 (01:04→09:16)
[2020-06-23] MEDS: PIPERACILLIN/TAZOB 3.375 GM 3.375 GM in DEXTROSE 5%-WATER - 50 ML IVPB SCH ×2 (01:29→09:43)
[2020-06-23] MEDS: HEPARIN NA (PORCINE) 5,000 UNITS/ML 1ML VIAL SQ SCH ×3 (06:22→21:36)
[2020-06-23] MEDS: MUPIROCIN 2% TOPICAL OINTMENT FOR DECOLONIZATION NS SCH (07:10)
[2020-06-23] MEDS: FENTANYL NS IVPB 500 MCG/100 ML BAG IVPB SCH (07:10)
[2020-06-23] MEDS: PANTOPRAZOLE SODIUM 40 MG VIAL IVPUSH SCH (09:44)
[2020-06-23] MEDS: AMINO ACIDS/PROTEIN HYDROLYS 30 ML LIQUID.PKT PO SCH ×2 (09:44→17:36)
[2020-06-23] MEDS: amLODIPine BESYLATE 5 MG TABLET (FP) PO SCH (09:44)
[2020-06-23] MEDS: DEXAMETHASONE SOD PHOSPHATE 4 MG/1 ML VIAL IVPUSH SCH (09:44)
[2020-06-23] MEDS: BACLOFEN 10 MG TABLET (FP) PO SCH ×2 (09:45→23:01)
[2020-06-23] MEDS: MULTIVIT-MINERALS ORAL LIQUID PO SCH (09:46)
[2020-06-23] MEDS ORDERED: MULTIVIT-MINERALS ORAL LIQUID PO SCH (10:00)
[2020-06-23 10:05] LABS: HEMATOCRIT 30.7 % (35.4-49); HEMOGLOBIN 10.4 GM/dL (11.7-16.9); MCH 29.7 pg (25.7-33.7); MCHC 33.8 g/dl (32.0-35.9); PLATELET COUNT 239 K/MM3 (134-434); RBC 3.49 M/mm3 (4.00-5.60); RDW 13.4 % (11.9-15.9); WHITE BLOOD COUNT 9.6 K/mm3 (4.0-10.0)
[2020-06-23 10:24] LABS: POTASSIUM 3.3 mmol/L (3.5-5.1)
[2020-06-23 10:26] LABS: CALCIUM 7.8 mg/dL (8.5-10.1)
[2020-06-23 10:27] LABS: ALBUMIN 2.2 g/dl (3.4-5.0); BLOOD UREA NITROGEN 70.2 mg/dL (7-18)
[2020-06-23 10:30] LABS: CREATININE 2.5 mg/dL (0.55-1.3)
[2020-06-23 10:31] LABS: BILIRUBIN,TOTAL 0.2 mg/dL (0.2-1); TOT PROT 5.9 g/dl (6.4-8.2)
[2020-06-23] MEDS ORDERED: TRAMADOL PO SCH (12:00)
[2020-06-23] MEDS ORDERED: oxyCODONE HCL 5 MG TABLET PO PRN (12:56)
[2020-06-23] MEDS ORDERED: ACETAMINOPHEN 325 MG TABLET (FP) PO PRN (12:58)
[2020-06-23] MEDS: traMADol HCL 50 MG TABLET PO SCH ×2 (13:20→23:00)
[2020-06-23] MEDS ORDERED: PT OWN MED DRAWER 7, Y5N ONE (14:36)
[2020-06-23] MEDS: GABAPENTIN 400 MG CAPSULE PO SCH ×2 (14:54→23:00)
[2020-06-23] MEDS: SODIUM CHLORIDE 1,000 ML IV SCH ×2 (15:34→21:35)
[2020-06-23] MEDS ORDERED: PIPERACILLIN/TAZOBACTAM 2.25 GM VIAL IVPB ONE (17:12)
[2020-06-23] MEDS: PIPERACILLIN/TAZOB 2.25 GM 2.25 GM in DEXTROSE 5%-WATER - 50 ML IVPB SCH (17:36)
[2020-06-23] MEDS ORDERED: PATIENT'S OWN MEDICATION (NON-FORMULARY) (Baclofen [Baclofen] 20 MG Tablet) PO SCH (22:00)
[2020-06-23] MEDS ORDERED: ZOLPIDEM TARTRATE 5 MG TABLET PO PRN (22:00)
[2020-06-24] MEDS ORDERED: PIPERACILLIN/TAZOBACTAM 2.25 GM VIAL IVPB ONE ×3 (00:37→17:43)
[2020-06-24] MEDS ORDERED: DEXTROSE 5%-WATER - 50 ML IVPB ONE ×3 (00:38→17:43)
[2020-06-24] MEDS: PIPERACILLIN/TAZOB 2.25 GM 2.25 GM in DEXTROSE 5%-WATER - 50 ML IVPB SCH ×3 (01:48→17:47)
[2020-06-24] MEDS: SODIUM CHLORIDE 1,000 ML IV SCH ×2 (01:48→12:25)
[2020-06-24] MEDS ORDERED: PT OWN MED DRAWER 7, Y5N ONE (04:59)
[2020-06-24] MEDS: HEPARIN NA (PORCINE) 5,000 UNITS/ML 1ML VIAL SQ SCH ×3 (05:29→21:25)
[2020-06-24] MEDS: GABAPENTIN 400 MG CAPSULE PO SCH (05:29)
[2020-06-24] MEDS: PANTOPRAZOLE SODIUM 40 MG VIAL IVPUSH SCH (11:22)
[2020-06-24] MEDS: traMADol HCL 50 MG TABLET PO SCH ×2 (11:23→21:24)
[2020-06-24] MEDS: DEXAMETHASONE SOD PHOSPHATE 4 MG/1 ML VIAL IVPUSH SCH (11:24)
[2020-06-24] MEDS: AMINO ACIDS/PROTEIN HYDROLYS 30 ML LIQUID.PKT PO SCH ×2 (11:24→17:47)
[2020-06-24] MEDS: MULTIVIT-MINERALS ORAL LIQUID PO SCH (11:25)
[2020-06-24] MEDS ORDERED: oxyCODONE HCL 5 MG TABLET PO PRN (12:21)
[2020-06-24] MEDS: BACLOFEN 10 MG TABLET (FP) PO SCH ×2 (12:23→21:25)
[2020-06-24] MEDS: amLODIPine BESYLATE 5 MG TABLET (FP) PO SCH (12:25)
[2020-06-24 14:17] LABS: BASO % 0.2 % (0-2.0); EOS % 0.1 % (0-4.5); HEMATOCRIT 30.5 % (35.4-49); HEMOGLOBIN 10.1 GM/dL (11.7-16.9); LYMPH % 6.6 % (8-40); MCH 29.3 pg (25.7-33.7); MCHC 33.1 g/dl (32.0-35.9); MEAN CELL VOLUME 88.7 fl (80-96); MEAN PLT VOLUME 9.1 fl (7.5-11.1); MONO % 9.3 % (3.8-10.2); NEUT % 83.8 % (42.8-82.8); PLATELET COUNT 247 K/MM3 (134-434); RBC 3.44 M/mm3 (4.00-5.60); RDW 13.7 % (11.9-15.9); WHITE BLOOD COUNT 9.9 K/mm3 (4.0-10.0)
[2020-06-24 14:42] LABS: CALCIUM 7.9 mg/dL (8.5-10.1)
[2020-06-24 14:43] LABS: ALBUMIN 2.3 g/dl (3.4-5.0); BLOOD UREA NITROGEN 65.2 mg/dL (7-18); POTASSIUM 3.5 mmol/L (3.5-5.1)
[2020-06-24 14:46] LABS: CREATININE 2.1 mg/dL (0.55-1.3)
[2020-06-24 14:48] LABS: BILIRUBIN,TOTAL 0.2 mg/dL (0.2-1); TOT PROT 5.8 g/dl (6.4-8.2)
[2020-06-24] MEDS: GABAPENTIN 300 MG CAPSULE PO SCH ×2 (15:10→21:24)
[2020-06-24 16:55] LABS: ANISOCYTOSIS 0; MACROCYTOSIS 0; PLATELET ESTIMATE NORMAL
[2020-06-24] MEDS: SODIUM CHLORIDE 0.45% 1,000 ML IV SCH (17:00)
[2020-06-25] MEDS ORDERED: DEXTROSE 5%-WATER - 50 ML IVPB ONE ×3 (02:34→17:40)
[2020-06-25] MEDS ORDERED: PIPERACILLIN/TAZOBACTAM 2.25 GM VIAL IVPB ONE ×3 (02:34→17:40)
[2020-06-25] MEDS: PIPERACILLIN/TAZOB 2.25 GM 2.25 GM in DEXTROSE 5%-WATER - 50 ML IVPB SCH ×3 (02:37→17:45)
[2020-06-25] MEDS: HEPARIN NA (PORCINE) 5,000 UNITS/ML 1ML VIAL SQ SCH ×3 (05:50→21:22)
[2020-06-25] MEDS: GABAPENTIN 300 MG CAPSULE PO SCH ×3 (05:50→21:23)
[2020-06-25] MEDS: SODIUM CHLORIDE 0.45% 1,000 ML IV SCH ×2 (05:56→17:42)
[2020-06-25 09:31] LABS: BASO % 0.1 % (0-2.0); EOS % 0.1 % (0-4.5); HEMATOCRIT 28.5 % (35.4-49); HEMOGLOBIN 9.5 GM/dL (11.7-16.9); LYMPH % 13.3 % (8-40); MCH 29.2 pg (25.7-33.7); MCHC 33.3 g/dl (32.0-35.9); MEAN CELL VOLUME 87.8 fl (80-96); MEAN PLT VOLUME 9.1 fl (7.5-11.1); NEUT % 74.5 % (42.8-82.8); PLATELET COUNT 283 K/MM3 (134-434); RBC 3.25 M/mm3 (4.00-5.60); RDW 13.4 % (11.9-15.9)
[2020-06-25 09:58] LABS: POTASSIUM 3.3 mmol/L (3.5-5.1)
[2020-06-25 10:40] LABS: CALCIUM 7.5 mg/dL (8.5-10.1)
[2020-06-25 10:41] LABS: BLOOD UREA NITROGEN 61.7 mg/dL (7-18)
[2020-06-25 10:44] LABS: CREATININE 1.7 mg/dL (0.55-1.3)
[2020-06-25 10:59] LABS: ANISOCYTOSIS 0; HELMET CELLS 0; HOWELL-JOLLY BODIES 0; MACROCYTOSIS 0; OVALOCYTE 0; PLATELET ESTIMATE NORMAL; ROULEAU 0; SICKELED CELLS 0; TARGET CELLS 0; TEAR DROP CELLS 0; TOXIC GRANULATION 0
[2020-06-25] MEDS: AMINO ACIDS/PROTEIN HYDROLYS 30 ML LIQUID.PKT PO SCH ×2 (11:10→17:43)
[2020-06-25] MEDS: traMADol HCL 50 MG TABLET PO SCH ×2 (11:10→21:23)
[2020-06-25] MEDS: BACLOFEN 10 MG TABLET (FP) PO SCH ×2 (11:11→21:24)
[2020-06-25] MEDS: PANTOPRAZOLE SODIUM 40 MG VIAL IVPUSH SCH (11:11)
[2020-06-25] MEDS: DEXAMETHASONE SOD PHOSPHATE 4 MG/1 ML VIAL IVPUSH SCH (11:11)
[2020-06-25] MEDS: MULTIVIT-MINERALS ORAL LIQUID PO SCH (11:12)
[2020-06-25] MEDS: amLODIPine BESYLATE 5 MG TABLET (FP) PO SCH (11:45)
[2020-06-25] MEDS ORDERED: POTASSIUM CHLORIDE ORAL LIQUID 20 MEQ/15 ML PO ONE (14:33)
[2020-06-25 14:50] LABS: RETICULOCYTES 0.35 % (0.5-1.5)
[2020-06-25] MEDS: KCL 10 MEQ IVPB 10 MEQ/100 ML INFUS.BAG IVPB SCH ×4 (15:14→17:43)
[2020-06-26] MEDS ORDERED: PIPERACILLIN/TAZOBACTAM 2.25 GM VIAL IVPB ONE ×2 (01:46→10:36)
[2020-06-26] MEDS ORDERED: DEXTROSE 5%-WATER - 50 ML IVPB ONE ×2 (01:46→10:36)
[2020-06-26] MEDS: PIPERACILLIN/TAZOB 2.25 GM 2.25 GM in DEXTROSE 5%-WATER - 50 ML IVPB SCH ×3 (01:56→19:18)
[2020-06-26] MEDS: GABAPENTIN 300 MG CAPSULE PO SCH ×4 (05:47→21:29)
[2020-06-26] MEDS: HEPARIN NA (PORCINE) 5,000 UNITS/ML 1ML VIAL SQ SCH ×3 (05:47→21:29)
[2020-06-26] MEDS ORDERED: FLUMAZENIL 0.5 MG/5 ML VIAL IVPUSH ONE (08:50)
[2020-06-26] MEDS: NALOXONE HCL 0.4 MG/ML VIAL IVPUSH PRN ×3 (08:50→10:30)
[2020-06-26] MEDS ORDERED: NALOXONE HCL 0.4 MG/ML VIAL ONE ×2 (08:55→09:03)
[2020-06-26] MEDS: AMINO ACIDS/PROTEIN HYDROLYS 30 ML LIQUID.PKT PO SCH ×2 (09:00→19:18)
[2020-06-26 09:21] LABS: BASO % 0.2 % (0-2.0); EOS % 1.2 % (0-4.5); HEMOGLOBIN 9.8 GM/dL (11.7-16.9); LYMPH % 9.9 % (8-40); MCH 29.1 pg (25.7-33.7); MCHC 32.7 g/dl (32.0-35.9); MEAN CELL VOLUME 88.9 fl (80-96); MEAN PLT VOLUME 9.1 fl (7.5-11.1); MONO % 8.8 % (3.8-10.2); NEUT % 79.9 % (42.8-82.8); PLATELET COUNT 313 K/MM3 (134-434); RBC 3.38 M/mm3 (4.00-5.60); RDW 13.5 % (11.9-15.9)
[2020-06-26 09:45] LABS: INR 1.08 (0.83-1.09)
[2020-06-26 09:48] LABS: ARTERIAL BLD GAS O2 SATURATION 88.6 mmHg (95-98); ARTERIAL BLOOD GAS BASE EXCESS -4.6 mmol/L (-2-2); ARTERIAL BLOOD GAS PO2 68.1 mmHg (80-100)
[2020-06-26 09:56] LABS: ALLENS TEST POSITIVE
[2020-06-26 09:59] LABS: ARTERIAL BLOOD GAS pH 7.193 (7.350-7.450)
[2020-06-26 10:06] LABS: POTASSIUM 3.9 mmol/L (3.5-5.1)
[2020-06-26 10:18] LABS: BILIRUBIN,TOTAL 0.5 mg/dL (0.2-1); PHOSPHOROUS 5.7 mg/dL (2.5-4.9)
[2020-06-26 10:19] LABS: TOT PROT 5.8 g/dl (6.4-8.2)
[2020-06-26] MEDS ORDERED: FLUMAZENIL 0.5 MG/5 ML VIAL IVPUSH PRN (10:19)
[2020-06-26 10:20] LABS: CREATININE 1.5 mg/dL (0.55-1.3)
[2020-06-26 10:25] LABS: BLOOD UREA NITROGEN 57.3 mg/dL (7-18)
[2020-06-26 10:26] LABS: ALBUMIN 2.3 g/dl (3.4-5.0)
[2020-06-26 10:28] LABS: CALCIUM 7.6 mg/dL (8.5-10.1)
[2020-06-26] MEDS ORDERED: SODIUM CHLORIDE 0.9% 500 ML INFUS.BAG IV ONE (10:47)
[2020-06-26] MEDS: BACLOFEN 10 MG TABLET (FP) PO SCH ×2 (11:15→21:29)
[2020-06-26] MEDS: MULTIVIT-MINERALS ORAL LIQUID PO SCH (11:15)
[2020-06-26] MEDS: amLODIPine BESYLATE 5 MG TABLET (FP) PO SCH (11:15)
[2020-06-26] MEDS: traMADol HCL 50 MG TABLET PO SCH (11:16)
[2020-06-26] MEDS ORDERED: DEXMEDETOMIDINE IN 0.9 % NACL 200 MCG/50 ML EACH IVPB SCH ×3 (11:30→21:15)
[2020-06-26] MEDS: DOPAMINE 400 MG/D5W - 400,000 MCG/250 ML INFUS.BAG IVPB SCH (11:30)
[2020-06-26] MEDS ORDERED: MORPHINE SULFATE 2 MG/ML VIAL IVPUSH PRN ×2 (11:41→11:48)
[2020-06-26] MEDS ORDERED: morphine CARPU-JECT 4 MG/1 ML DISP.SYRIN IVPUSH PRN (11:42)
[2020-06-26 11:44] LABS: ANISOCYTOSIS 0; MACROCYTOSIS 0; PLATELET ESTIMATE NORMAL
[2020-06-26 12:08] LABS: ARTERIAL BLD GAS O2 SATURATION 92.3 mmHg (95-98); ARTERIAL BLOOD GAS BASE EXCESS -4.1 mmol/L (-2-2); ARTERIAL BLOOD GAS PO2 68.5 mmHg (80-100); ARTERIAL BLOOD GAS pH 7.321 (7.350-7.450)
[2020-06-26 12:13] LABS: VENT MODE A/C; VENT RATE 20
[2020-06-26] MEDS: DEXMEDETOMIDINE IN 0.9 % NACL 400 MCG/100 ML VIAL IVPB SCH (13:00)
[2020-06-26] MEDS: DEXAMETHASONE SOD PHOSPHATE 4 MG/1 ML VIAL IVPUSH SCH (13:00)
[2020-06-26] MEDS: PANTOPRAZOLE SODIUM 40 MG VIAL IVPUSH SCH (13:00)
[2020-06-26] MEDS ORDERED: NOREPINEPHRINE BITARTRATE 4,000 MCG in DEXTROSE 5%-WATER - 496 ML IV SCH (16:15)
[2020-06-26] MEDS ORDERED: ATROPINE SULFATE 1 MG/10 ML DISP.SYRIN IVPUSH ONE (16:17)
[2020-06-26] MEDS: SODIUM CHLORIDE 0.45% 1,000 ML IV SCH (18:12)
[2020-06-26] MEDS ORDERED: MIDAZOLAM HCL 2 MG/2 ML SINGLE DOSE VIAL ONE ×2 (20:37→23:26)
[2020-06-26] MEDS ORDERED: MIDAZOLAM HCL 2 MG/2 ML SINGLE DOSE VIAL IVPUSH ONE ×2 (21:04→23:26)
[2020-06-27] MEDS ORDERED: DEXTROSE 5%-WATER - 50 ML IVPB ONE ×4 (02:11→21:26)
[2020-06-27] MEDS ORDERED: PIPERACILLIN/TAZOBACTAM 2.25 GM VIAL IVPB ONE ×4 (02:12→21:26)
[2020-06-27] MEDS: PIPERACILLIN/TAZOB 2.25 GM 2.25 GM in DEXTROSE 5%-WATER - 50 ML IVPB SCH ×3 (02:36→17:38)
[2020-06-27] MEDS ORDERED: PROPOFOL 1,000,000 MCG/100 ML VIAL ONE (02:57)
[2020-06-27] MEDS: PROPOFOL 1,000,000 MCG/100 ML VIAL IVPB SCH (03:52)
[2020-06-27 06:29] LABS: ARTERIAL BLD GAS O2 SATURATION 99.4 mmHg (95-98); ARTERIAL BLOOD GAS BASE EXCESS -0.4 mmol/L (-2-2); ARTERIAL BLOOD GAS pH 7.434 (7.350-7.450)
[2020-06-27 06:42] LABS: ALLENS TEST POSITIVE; VENT MODE A/C; VENT RATE 20
[2020-06-27] MEDS: HEPARIN NA (PORCINE) 5,000 UNITS/ML 1ML VIAL SQ SCH ×3 (06:49→22:06)
[2020-06-27] MEDS: GABAPENTIN 300 MG CAPSULE PO SCH ×3 (06:49→22:06)
[2020-06-27] MEDS ORDERED: ACETAMINOPHEN INJECTION 100 ML IVPB ONE (06:50)
[2020-06-27] MEDS: AMINO ACIDS/PROTEIN HYDROLYS 30 ML LIQUID.PKT PO SCH ×2 (08:27→17:38)
[2020-06-27 08:57] LABS: HEMATOCRIT 31.9 % (35.4-49); HEMOGLOBIN 10.6 GM/dL (11.7-16.9); MCH 28.9 pg (25.7-33.7); MCHC 33.2 g/dl (32.0-35.9); MEAN CELL VOLUME 87.1 fl (80-96); MEAN PLT VOLUME 9.2 fl (7.5-11.1); PLATELET COUNT 329 K/MM3 (134-434); RBC 3.66 M/mm3 (4.00-5.60); RDW 13.4 % (11.9-15.9)
[2020-06-27] MEDS: MULTIVIT-MINERALS ORAL LIQUID PO SCH (09:01)
[2020-06-27] MEDS: DEXAMETHASONE SOD PHOSPHATE 4 MG/1 ML VIAL IVPUSH SCH (09:02)
[2020-06-27] MEDS: BACLOFEN 10 MG TABLET (FP) PO SCH ×2 (09:03→22:06)
[2020-06-27] MEDS: PANTOPRAZOLE SODIUM 40 MG VIAL IVPUSH SCH (09:03)
[2020-06-27 09:15] LABS: POTASSIUM 3.1 mmol/L (3.5-5.1)
[2020-06-27 09:18] LABS: ALBUMIN 2.3 g/dl (3.4-5.0); CALCIUM 7.8 mg/dL (8.5-10.1); MAGNESIUM 1.7 mg/dL (1.8-2.4)
[2020-06-27 09:21] LABS: CREATININE 1.2 mg/dL (0.55-1.3); PHOSPHOROUS 3.1 mg/dL (2.5-4.9)
[2020-06-27 09:23] LABS: BILIRUBIN,TOTAL 0.8 mg/dL (0.2-1); TOT PROT 5.9 g/dl (6.4-8.2)
[2020-06-27] MEDS ORDERED: POTASSIUM CHLORIDE ORAL LIQUID 20 MEQ/15 ML PO ONE (12:00)
[2020-06-27] MEDS ORDERED: MAGNESIUM SULF 50% (8.12 MEQ/2 ML-1 GM VIAL) IVPB ONE (12:00)
[2020-06-27] MEDS: SODIUM CHLORIDE 0.45% 1,000 ML IV SCH (13:36)
[2020-06-27] MEDS: KCL 10 MEQ IVPB 10 MEQ/100 ML INFUS.BAG IVPB SCH ×3 (13:39→16:00)
[2020-06-27] MEDS ORDERED: ACETAMINOPHEN 1000 MG/100 ML VIAL (NON FORMULARY) IVPB ONE (16:37)
[2020-06-27] MEDS: DEXMEDETOMIDINE IN 0.9 % NACL 400 MCG/100 ML VIAL IVPB SCH (17:09)
[2020-06-27] MEDS: DOPAMINE 400 MG/D5W - 400,000 MCG/250 ML INFUS.BAG IVPB SCH (17:15)
[2020-06-28] MEDS: PIPERACILLIN/TAZOB 2.25 GM 2.25 GM in DEXTROSE 5%-WATER - 50 ML IVPB SCH ×2 (01:15→09:17)
[2020-06-28] MEDS: PROPOFOL 1,000,000 MCG/100 ML VIAL IVPB SCH (02:46)
[2020-06-28] MEDS: HEPARIN NA (PORCINE) 5,000 UNITS/ML 1ML VIAL SQ SCH ×3 (05:58→21:45)
[2020-06-28] MEDS: GABAPENTIN 300 MG CAPSULE PO SCH ×3 (05:58→21:45)
[2020-06-28] MEDS ORDERED: PIPERACILLIN/TAZOBACTAM 2.25 GM VIAL IVPB ONE (08:54)
[2020-06-28] MEDS ORDERED: DEXTROSE 5%-WATER - 50 ML IVPB ONE (08:54)
[2020-06-28 09:16] LABS: HEMATOCRIT 29.8 % (35.4-49); HEMOGLOBIN 9.9 GM/dL (11.7-16.9); MCH 29.2 pg (25.7-33.7); MCHC 33.2 g/dl (32.0-35.9); MEAN CELL VOLUME 87.9 fl (80-96); MEAN PLT VOLUME 9.3 fl (7.5-11.1); PLATELET COUNT 298 K/MM3 (134-434); RBC 3.39 M/mm3 (4.00-5.60); RDW 13.4 % (11.9-15.9)
[2020-06-28] MEDS: PANTOPRAZOLE SODIUM 40 MG VIAL IVPUSH SCH (09:16)
[2020-06-28] MEDS: MULTIVIT-MINERALS ORAL LIQUID PO SCH (09:16)
[2020-06-28] MEDS: AMINO ACIDS/PROTEIN HYDROLYS 30 ML LIQUID.PKT PO SCH ×2 (09:16→17:27)
[2020-06-28] MEDS: DEXAMETHASONE SOD PHOSPHATE 4 MG/1 ML VIAL IVPUSH SCH (09:16)
[2020-06-28] MEDS: BACLOFEN 10 MG TABLET (FP) PO SCH ×2 (09:17→21:45)
[2020-06-28 09:27] LABS: POTASSIUM 3.3 mmol/L (3.5-5.1)
[2020-06-28 09:28] LABS: BLOOD UREA NITROGEN 37.4 mg/dL (7-18); CALCIUM 7.8 mg/dL (8.5-10.1)
[2020-06-28 09:32] LABS: PHOSPHOROUS 3.5 mg/dL (2.5-4.9)
[2020-06-28] MEDS: ACETAMINOPHEN 325 MG TABLET (FP) PO PRN (10:37)
[2020-06-28] MEDS: MEROPENEM 1 GM in DEXTROSE 5%-WATER 100 ML IVPB SCH ×2 (12:19→17:27)
[2020-06-28] MEDS: MIDODRINE HCL 5 MG TABLET PO SCH ×2 (13:50→17:27)
[2020-06-28] MEDS: DOPAMINE 400 MG/D5W - 400,000 MCG/250 ML INFUS.BAG IVPB SCH (15:56)
[2020-06-28] MEDS: SODIUM CHLORIDE 0.45% 1,000 ML IV SCH (15:57)
[2020-06-28] MEDS ORDERED: ACETAMINOPHEN 1000 MG/100 ML VIAL (NON FORMULARY) IVPB ONE (15:58)
[2020-06-28] MEDS: DEXMEDETOMIDINE IN 0.9 % NACL 400 MCG/100 ML VIAL IVPB SCH (15:58)
[2020-06-29] MEDS: MEROPENEM 1 GM in DEXTROSE 5%-WATER 100 ML IVPB SCH ×3 (02:30→17:42)
[2020-06-29] MEDS: DEXMEDETOMIDINE IN 0.9 % NACL 400 MCG/100 ML VIAL IVPB SCH ×2 (02:44→12:46)
[2020-06-29 05:24] LABS: ARTERIAL BLD GAS O2 SATURATION 98.4 mmHg (95-98); ARTERIAL BLOOD GAS BASE EXCESS 0.8 mmol/L (-2-2); ARTERIAL BLOOD GAS PO2 124.3 mmHg (80-100); ARTERIAL BLOOD GAS pH 7.381 (7.350-7.450)
[2020-06-29 05:29] LABS: ALLENS TEST POSITIVE
[2020-06-29 05:30] LABS: VENT MODE A/C; VENT RATE 16
[2020-06-29] MEDS: HEPARIN NA (PORCINE) 5,000 UNITS/ML 1ML VIAL SQ SCH ×2 (06:16→13:00)
[2020-06-29] MEDS: GABAPENTIN 300 MG CAPSULE PO SCH ×3 (06:16→21:02)
[2020-06-29] MEDS: ACETAMINOPHEN 325 MG TABLET (FP) PO PRN (06:19)
[2020-06-29 07:56] LABS: HEMATOCRIT 29.4 % (35.4-49); HEMOGLOBIN 9.7 GM/dL (11.7-16.9); MCHC 32.9 g/dl (32.0-35.9); MEAN CELL VOLUME 88.3 fl (80-96); MEAN PLT VOLUME 10.1 fl (7.5-11.1); PLATELET COUNT 271 K/MM3 (134-434); RBC 3.33 M/mm3 (4.00-5.60); RDW 13.8 % (11.9-15.9); WHITE BLOOD COUNT 28.7 K/mm3 (4.0-10.0)
[2020-06-29 08:09] LABS: POTASSIUM 3.5 mmol/L (3.5-5.1)
[2020-06-29 08:16] LABS: CALCIUM 7.7 mg/dL (8.5-10.1)
[2020-06-29 08:17] LABS: ALBUMIN 2.1 g/dl (3.4-5.0); BLOOD UREA NITROGEN 38.2 mg/dL (7-18); MAGNESIUM 1.9 mg/dL (1.8-2.4)
[2020-06-29 08:20] LABS: BILIRUBIN,TOTAL 0.2 mg/dL (0.2-1); CREATININE 0.9 mg/dL (0.55-1.3); PHOSPHOROUS 3.8 mg/dL (2.5-4.9)
[2020-06-29] MEDS: PANTOPRAZOLE SODIUM 40 MG VIAL IVPUSH SCH (10:01)
[2020-06-29] MEDS: AMINO ACIDS/PROTEIN HYDROLYS 30 ML LIQUID.PKT PO SCH (10:01)
[2020-06-29] MEDS: DEXAMETHASONE SOD PHOSPHATE 4 MG/1 ML VIAL IVPUSH SCH (10:01)
[2020-06-29] MEDS: MIDODRINE HCL 5 MG TABLET PO SCH ×3 (10:01→17:42)
[2020-06-29] MEDS: BACLOFEN 10 MG TABLET (FP) PO SCH ×2 (10:01→21:02)
[2020-06-29] MEDS: MULTIVIT-MINERALS ORAL LIQUID PO SCH (10:01)
[2020-06-29] MEDS: DOPAMINE 400 MG/D5W - 400,000 MCG/250 ML INFUS.BAG IVPB SCH (12:46)
[2020-06-29] MEDS: SODIUM CHLORIDE 0.45% 1,000 ML IV SCH ×2 (12:46→15:31)
[2020-06-29] MEDS: SCOPOLAMINE HYDROBROMIDE 1 PATCH PATCH.TD72 TD SCH (21:01)
[2020-06-29] MEDS ORDERED: MELATONIN 5 MG TABLETS PO ONE (23:49)
[2020-06-30] MEDS: MEROPENEM 1 GM in DEXTROSE 5%-WATER 100 ML IVPB SCH ×3 (02:03→17:31)
[2020-06-30] MEDS: morphine SULFATE 4 MG/ML VIAL IVPUSH PRN ×4 (03:10→23:18)
[2020-06-30 06:17] LABS: HEMATOCRIT 28.1 % (35.4-49); HEMOGLOBIN 9.2 GM/dL (11.7-16.9); MCH 28.9 pg (25.7-33.7); MCHC 32.8 g/dl (32.0-35.9); MEAN CELL VOLUME 88.3 fl (80-96); MEAN PLT VOLUME 10.1 fl (7.5-11.1); PLATELET COUNT 296 K/MM3 (134-434); RBC 3.18 M/mm3 (4.00-5.60); RDW 13.5 % (11.9-15.9); WHITE BLOOD COUNT 26.7 K/mm3 (4.0-10.0)
[2020-06-30] MEDS: GABAPENTIN 300 MG CAPSULE PO SCH ×3 (06:26→22:43)
[2020-06-30 06:48] LABS: POTASSIUM 3.6 mmol/L (3.5-5.1)
[2020-06-30 06:50] LABS: BLOOD UREA NITROGEN 35.5 mg/dL (7-18); CALCIUM 8.3 mg/dL (8.5-10.1)
[2020-06-30 06:54] LABS: CREATININE 0.7 mg/dL (0.55-1.3)
[2020-06-30] MEDS: MIDODRINE HCL 5 MG TABLET PO SCH ×3 (09:04→17:32)
[2020-06-30] MEDS: AMINO ACIDS/PROTEIN HYDROLYS 30 ML LIQUID.PKT PO SCH (09:04)
[2020-06-30] MEDS: DEXAMETHASONE SOD PHOSPHATE 4 MG/1 ML VIAL IVPUSH SCH (09:04)
[2020-06-30] MEDS: BACLOFEN 10 MG TABLET (FP) PO SCH ×2 (09:04→22:44)
[2020-06-30] MEDS: PANTOPRAZOLE SODIUM 40 MG VIAL IVPUSH SCH (09:04)
[2020-06-30] MEDS: DEXMEDETOMIDINE IN 0.9 % NACL 400 MCG/100 ML VIAL IVPB SCH (09:05)
[2020-06-30 09:28] LABS: BASO % 0.4 % (0-2.0); EOS % 0.1 % (0-4.5); HEMATOCRIT 27.8 % (35.4-49); HEMOGLOBIN 9.3 GM/dL (11.7-16.9); MCH 29.6 pg (25.7-33.7); MCHC 33.5 g/dl (32.0-35.9); MEAN CELL VOLUME 88.3 fl (80-96); MEAN PLT VOLUME 10.4 fl (7.5-11.1); MONO % 4.8 % (3.8-10.2); NEUT % 89.7 % (42.8-82.8); PLATELET COUNT 299 K/MM3 (134-434); RBC 3.14 M/mm3 (4.00-5.60); RDW 13.5 % (11.9-15.9); WHITE BLOOD COUNT 24.5 K/mm3 (4.0-10.0)
[2020-06-30 10:35] LABS: ANISOCYTOSIS 0; HELMET CELLS 0; HOWELL-JOLLY BODIES 0; MACROCYTOSIS 0; OVALOCYTE 0; PLATELET ESTIMATE NORMAL; ROULEAU 0; SICKELED CELLS 0; TARGET CELLS 0; TEAR DROP CELLS 0; TOXIC GRANULATION 0
[2020-06-30] MEDS: DOPAMINE 400 MG/D5W - 400,000 MCG/250 ML INFUS.BAG IVPB SCH (11:30)
[2020-06-30] MEDS: MULTIVIT-MINERALS ORAL LIQUID PO SCH (13:01)
[2020-06-30] MEDS: SODIUM CHLORIDE 0.45% 1,000 ML IV SCH (15:30)
[2020-07-01] MEDS: MEROPENEM 1 GM in DEXTROSE 5%-WATER 100 ML IVPB SCH ×3 (01:24→18:30)
[2020-07-01] MEDS: GABAPENTIN 300 MG CAPSULE PO SCH ×3 (05:15→21:41)
[2020-07-01] MEDS: morphine SULFATE 4 MG/ML VIAL IVPUSH PRN ×2 (09:03→18:30)
[2020-07-01] MEDS ORDERED: DEXMEDETOMIDINE IN 0.9 % NACL 400 MCG/100 ML VIAL IVPB SCH (10:15)
[2020-07-01] MEDS: AMINO ACIDS/PROTEIN HYDROLYS 30 ML LIQUID.PKT PO SCH (12:08)
[2020-07-01] MEDS: MULTIVIT-MINERALS ORAL LIQUID PO SCH (12:08)
[2020-07-01] MEDS: BACLOFEN 10 MG TABLET (FP) PO SCH ×2 (12:09→21:41)
[2020-07-01] MEDS: MIDODRINE HCL 5 MG TABLET PO SCH ×3 (12:09→18:30)
[2020-07-01] MEDS: PANTOPRAZOLE SODIUM 40 MG VIAL IVPUSH SCH (12:09)
[2020-07-01] MEDS: MIDAZOLAM 100 MG/100 ML MG IVPB SCH (21:00)
[2020-07-01] MEDS: DOPAMINE 400 MG/D5W - 400,000 MCG/250 ML INFUS.BAG IVPB SCH (21:41)
[2020-07-01] MEDS ORDERED: MIDAZOLAM IN 0.9 % SOD.CHLORID 1 MG/1 ML PLAST..BAG ONE (21:43)
[2020-07-02] MEDS: MEROPENEM 1 GM in DEXTROSE 5%-WATER 100 ML IVPB SCH ×3 (01:10→18:12)
[2020-07-02] MEDS: GABAPENTIN 300 MG CAPSULE PO SCH ×2 (05:45→15:16)
[2020-07-02 08:13] LABS: HEMATOCRIT 31.7 % (35.4-49); HEMOGLOBIN 10.4 GM/dL (11.7-16.9); MCH 28.7 pg (25.7-33.7); MCHC 32.7 g/dl (32.0-35.9); MEAN CELL VOLUME 87.8 fl (80-96); MEAN PLT VOLUME 10.4 fl (7.5-11.1); PLATELET COUNT 346 K/MM3 (134-434); RDW 13.3 % (11.9-15.9); WHITE BLOOD COUNT 24.9 K/mm3 (4.0-10.0)
[2020-07-02] MEDS: AMINO ACIDS/PROTEIN HYDROLYS 30 ML LIQUID.PKT PO SCH (08:31)
[2020-07-02 08:42] LABS: CALCIUM 8.1 mg/dL (8.5-10.1)
[2020-07-02 08:43] LABS: BLOOD UREA NITROGEN 29.8 mg/dL (7-18); MAGNESIUM 1.8 mg/dL (1.8-2.4)
[2020-07-02 08:45] LABS: CREATININE 0.6 mg/dL (0.55-1.3)
[2020-07-02 08:46] LABS: PHOSPHOROUS 2.8 mg/dL (2.5-4.9)
[2020-07-02] MEDS ORDERED: POTASSIUM CHLORIDE ORAL LIQUID 20 MEQ/15 ML PO ONE (09:22)
[2020-07-02] MEDS: NOREPINEPHRINE D5W PREMIX 16,000 MCG/500 ML BAG IVPB SCH (09:26)
[2020-07-02] MEDS: PANTOPRAZOLE SODIUM 40 MG VIAL IVPUSH SCH (10:40)
[2020-07-02] MEDS: DEXAMETHASONE SOD PHOSPHATE 4 MG/1 ML VIAL IVPUSH SCH ×2 (10:40→21:57)
[2020-07-02] MEDS: BACLOFEN 10 MG TABLET (FP) PO SCH ×2 (10:40→22:10)
[2020-07-02] MEDS: MULTIVIT-MINERALS ORAL LIQUID PO SCH (10:41)
[2020-07-02] MEDS: MIDODRINE HCL 5 MG TABLET PO SCH ×3 (10:43→18:25)
[2020-07-02] MEDS: KCL 10 MEQ IVPB 10 MEQ/100 ML INFUS.BAG IVPB SCH ×3 (11:13→13:44)
[2020-07-02] MEDS: LORazepam 2 MG/ML SDV VIAL IVPUSH SCH ×2 (13:44→20:09)
[2020-07-02] MEDS ORDERED: QUEtiapine FUMARATE 50 MG TABLET PO SCH ×2 (14:52→22:00)
[2020-07-02] MEDS ORDERED: QUEtiapine FUMARATE 25 MG TABLET ONE (15:01)
[2020-07-02] MEDS: QUEtiapine FUMARATE 50 MG TABLET PO SCH ×2 (15:15→22:10)
[2020-07-02] MEDS ORDERED: MIDAZOLAM IN 0.9 % SOD.CHLORID 1 MG/1 ML PLAST..BAG ONE ×2 (16:08→23:58)
[2020-07-02] MEDS: MIDAZOLAM 100 MG/100 ML MG IVPB SCH ×2 (16:11→20:36)
[2020-07-02] MEDS: ACETAMINOPHEN 325 MG TABLET (FP) PO PRN (18:26)
[2020-07-02] MEDS: DOPAMINE 400 MG/D5W - 400,000 MCG/250 ML INFUS.BAG IVPB SCH (18:56)
[2020-07-02] MEDS: SCOPOLAMINE HYDROBROMIDE 1 PATCH PATCH.TD72 TD SCH (20:27)
[2020-07-02] MEDS: GABAPENTIN 250 MG/5 ML ORAL SOLUTION, 470 ML BOTTLE PO SCH (22:10)
[2020-07-02] MEDS ORDERED: ACETAMINOPHEN 1000 MG/100 ML VIAL (NON FORMULARY) IVPB ONE (22:17)
[2020-07-03] MEDS: MIDAZOLAM IN 0.9 % SOD.CHLORID 100 MG/100 ML PLAST..BAG IVPB SCH (01:00)
[2020-07-03] MEDS: MEROPENEM 1 GM in DEXTROSE 5%-WATER 100 ML IVPB SCH ×3 (02:14→19:08)
[2020-07-03] MEDS: LORazepam 2 MG/ML SDV VIAL IVPUSH SCH (02:14)
[2020-07-03] MEDS ORDERED: IBUPROFEN 800 MG/8 ML IJ IVPB ONE ×2 (02:15→05:58)
[2020-07-03] MEDS: GABAPENTIN 250 MG/5 ML ORAL SOLUTION, 470 ML BOTTLE PO SCH ×2 (05:12→13:53)
[2020-07-03] MEDS ORDERED: SODIUM CHLORIDE 1,000 ML IV STA (06:57)
[2020-07-03 07:03] LABS: ARTERIAL BLD GAS O2 SATURATION 97.1 mmHg (95-98); ARTERIAL BLOOD GAS BASE EXCESS 1.7 mmol/L (-2-2); ARTERIAL BLOOD GAS PO2 96.2 mmHg (80-100); ARTERIAL BLOOD GAS pH 7.367 (7.350-7.450)
[2020-07-03 07:04] LABS: ALLENS TEST POSITIVE
[2020-07-03 07:05] LABS: PT'S TEMP 101.9; VENT MODE A/C; VENT RATE 14
[2020-07-03] MEDS ORDERED: QUEtiapine FUMARATE 25 MG TABLET ONE (07:40)
[2020-07-03] MEDS: ACETAMINOPHEN 1000 MG/100 ML VIAL (NON FORMULARY) IVPB PRN ×2 (08:54→15:49)
[2020-07-03] MEDS: AMINO ACIDS/PROTEIN HYDROLYS 30 ML LIQUID.PKT PO SCH (09:07)
[2020-07-03] MEDS: PANTOPRAZOLE SODIUM 40 MG VIAL IVPUSH SCH (09:08)
[2020-07-03] MEDS: DEXAMETHASONE SOD PHOSPHATE 4 MG/1 ML VIAL IVPUSH SCH (09:09)
[2020-07-03] MEDS: BACLOFEN 10 MG TABLET (FP) PO SCH ×2 (09:12→23:11)
[2020-07-03] MEDS: MIDODRINE HCL 5 MG TABLET PO SCH ×3 (09:12→18:43)
[2020-07-03] MEDS: MULTIVIT-MINERALS ORAL LIQUID PO SCH (09:14)
[2020-07-03] MEDS ORDERED: VANCOMYCIN 1 GM in D5W (PRE-DOCKED) 1,000 MG/250 ML IVPB ONE ×2 (09:15→11:00)
[2020-07-03 09:23] LABS: BASO % 0.3 % (0-2.0); HEMATOCRIT 26.9 % (35.4-49); HEMOGLOBIN 8.6 GM/dL (11.7-16.9); LYMPH % 1.4 % (8-40); MCH 28.7 pg (25.7-33.7); MEAN CELL VOLUME 89.8 fl (80-96); MEAN PLT VOLUME 10.9 fl (7.5-11.1); MONO % 6.8 % (3.8-10.2); NEUT % 91.5 % (42.8-82.8); PLATELET COUNT 251 K/MM3 (134-434); RDW 13.7 % (11.9-15.9)
[2020-07-03] MEDS ORDERED: VASOPRESSIN 20 UNITS/ML VIAL IV ONE (09:48)
[2020-07-03 09:52] LABS: POTASSIUM 3.3 mmol/L (3.5-5.1)
[2020-07-03] MEDS: VASOPRESSIN 40 UNITS in SODIUM CHLORIDE 98 ML IVPB SCH (09:53)
[2020-07-03 09:58] LABS: ALBUMIN 1.8 g/dl (3.4-5.0); BLOOD UREA NITROGEN 38.4 mg/dL (7-18)
[2020-07-03] MEDS ORDERED: POTASSIUM CHLORIDE ORAL LIQUID 20 MEQ/15 ML PO ONE (10:00)
[2020-07-03] MEDS ORDERED: KCL 10 MEQ IVPB 10 MEQ/100 ML INFUS.BAG IVPB SCH (10:00)
[2020-07-03 10:01] LABS: CREATININE 0.9 mg/dL (0.55-1.3); PHOSPHOROUS 2.4 mg/dL (2.5-4.9)
[2020-07-03 10:02] LABS: BILIRUBIN,TOTAL 0.2 mg/dL (0.2-1)
[2020-07-03 10:04] LABS: TOT PROT 5.1 g/dl (6.4-8.2)
[2020-07-03] MEDS ORDERED: NAPH,MB-DB/K PH,MBDB POWDER PACKET PO ONE (10:08)
[2020-07-03 10:19] LABS: MAGNESIUM 1.7 mg/dL (1.8-2.4)
[2020-07-03] MEDS ORDERED: FENTANYL NS IVPB 500 MCG/100 ML BAG IVPB ONE (10:20)
[2020-07-03] MEDS: FENTANYL IVPB 500 MCG/100 ML BAG IVPB SCH (10:46)
[2020-07-03] MEDS ORDERED: MAGNESIUM SULFATE IN WATER 2 GM/50 ML IVPB IVPB ONE (12:00)
[2020-07-03] MEDS: LACTATED RINGERS SOLUTION 1,000 ML/1,000 ML INFUS.BAG IV SCH (12:31)
[2020-07-03 13:07] LABS: ANISOCYTOSIS 0; MACROCYTOSIS 0; PLATELET ESTIMATE NORMAL
[2020-07-03] MEDS: HYDROCORTISONE SOD SUCCINATE 100 MG/2 ML VIAL IVPUSH SCH ×2 (13:51→23:12)
[2020-07-03] MEDS: KCL 10 MEQ IVPB 10 MEQ/100 ML INFUS.BAG IVPB SCH ×3 (14:53→17:45)
[2020-07-03] MEDS: NOREPINEPHRINE D5W PREMIX 16,000 MCG/500 ML BAG IVPB SCH (16:38)
[2020-07-04] MEDS: GABAPENTIN 250 MG/5 ML ORAL SOLUTION, 470 ML BOTTLE PO SCH ×4 (02:01→21:47)
[2020-07-04] MEDS: NOREPINEPHRINE D5W PREMIX 16,000 MCG/500 ML BAG IVPB SCH ×2 (02:03→09:05)
[2020-07-04] MEDS: FENTANYL IVPB 500 MCG/100 ML BAG IVPB SCH ×3 (02:10→09:06)
[2020-07-04] MEDS: LACTATED RINGERS SOLUTION 1,000 ML/1,000 ML INFUS.BAG IV SCH ×2 (02:11→13:18)
[2020-07-04] MEDS: MEROPENEM 1 GM in DEXTROSE 5%-WATER 100 ML IVPB SCH ×3 (02:11→17:44)
[2020-07-04] MEDS: MIDAZOLAM IN 0.9 % SOD.CHLORID 100 MG/100 ML PLAST..BAG IVPB SCH ×2 (02:12→09:14)
[2020-07-04] MEDS ORDERED: PT OWN MED DRAWER 7, Y5N ONE ×5 (02:21→21:40)
[2020-07-04] MEDS: HYDROCORTISONE SOD SUCCINATE 100 MG/2 ML VIAL IVPUSH SCH ×3 (06:48→21:43)
[2020-07-04 07:15] LABS: BASO % 0.3 % (0-2.0); HEMOGLOBIN 9.6 GM/dL (11.7-16.9); MCH 29.1 pg (25.7-33.7); MCHC 32.9 g/dl (32.0-35.9); MEAN CELL VOLUME 88.5 fl (80-96); MEAN PLT VOLUME 10.8 fl (7.5-11.1); MONO % 10.4 % (3.8-10.2); NEUT % 84.3 % (42.8-82.8); PLATELET COUNT 174 K/MM3 (134-434); RBC 3.28 M/mm3 (4.00-5.60); RDW 13.5 % (11.9-15.9); WHITE BLOOD COUNT 22.3 K/mm3 (4.0-10.0)
[2020-07-04 07:31] LABS: POTASSIUM 3.9 mmol/L (3.5-5.1)
[2020-07-04 07:37] LABS: MAGNESIUM 2.2 mg/dL (1.8-2.4)
[2020-07-04 07:40] LABS: CREATININE 0.7 mg/dL (0.55-1.3); PHOSPHOROUS 4.6 mg/dL (2.5-4.9)
[2020-07-04 07:41] LABS: BILIRUBIN,TOTAL 0.3 mg/dL (0.2-1); TOT PROT 5.6 g/dl (6.4-8.2)
[2020-07-04 07:57] LABS: CALCIUM 6.6 mg/dL (8.5-10.1)
[2020-07-04] MEDS ORDERED: DEXTROSE 5%-WATER 100 ML IVPB ONE ×2 (08:36→17:12)
[2020-07-04] MEDS ORDERED: MEROPENEM 1 GM VIAL (RESTRICTED TO ID) IVPB ONE ×2 (08:36→17:12)
[2020-07-04] MEDS: AMINO ACIDS/PROTEIN HYDROLYS 30 ML LIQUID.PKT PO SCH (09:04)
[2020-07-04] MEDS: MULTIVIT-MINERALS ORAL LIQUID PO SCH (09:12)
[2020-07-04] MEDS: BACLOFEN 10 MG TABLET (FP) PO SCH ×2 (09:13→22:00)
[2020-07-04] MEDS: MIDODRINE HCL 5 MG TABLET PO SCH ×3 (09:13→17:44)
[2020-07-04] MEDS: VASOPRESSIN 40 UNITS in SODIUM CHLORIDE 98 ML IVPB SCH (09:14)
[2020-07-04] MEDS: PANTOPRAZOLE SODIUM 40 MG VIAL IVPUSH SCH (09:14)
[2020-07-04 11:04] LABS: ANISOCYTOSIS 0; MACROCYTOSIS 0; PLATELET ESTIMATE NORMAL
[2020-07-04] MEDS ORDERED: PROPOFOL 200 MG/20 ML VIAL IVPUSH ONE (17:33)
[2020-07-04] MEDS ORDERED: MIDAZOLAM 100 MG/100 ML MG IVPB ONE (21:39)
[2020-07-05] MEDS ORDERED: METOPROLOL TARTRATE 5 MG/5 ML VIAL ONE ×2 (00:25→00:35)
[2020-07-05] MEDS ORDERED: dilTIAZem HCL 50 MG/10 ML - 10 ML VIAL IVPUSH ONE ×2 (00:49→04:00)
[2020-07-05] MEDS ORDERED: dilTIAZem HCL 125 MG/25 ML - 25 ML VIAL ONE (00:50)
[2020-07-05 01:24] LABS: INR 1.37 (0.83-1.09); PROTHROMBIN TIME (PATIENT) 16.4 SEC (9.7-13.0)
[2020-07-05 01:26] LABS: ACTIVATED PTT 32.5 SECONDS (25.2-36.5)
[2020-07-05 01:34] LABS: POTASSIUM 3.1 mmol/L (3.5-5.1)
[2020-07-05] MEDS ORDERED: MEROPENEM 1 GM VIAL (RESTRICTED TO ID) IVPB ONE ×3 (01:35→16:22)
[2020-07-05 01:36] LABS: BLOOD UREA NITROGEN 36.2 mg/dL (7-18); CALCIUM 7.4 mg/dL (8.5-10.1)
[2020-07-05] MEDS ORDERED: DEXTROSE 5%-WATER 100 ML IVPB ONE ×3 (01:36→16:22)
[2020-07-05 01:39] LABS: CREATININE 0.8 mg/dL (0.55-1.3)
[2020-07-05] MEDS: MEROPENEM 1 GM in DEXTROSE 5%-WATER 100 ML IVPB SCH ×3 (01:39→17:29)
[2020-07-05 01:40] LABS: PHOSPHOROUS 4.2 mg/dL (2.5-4.9)
[2020-07-05] MEDS: FENTANYL IVPB 500 MCG/100 ML BAG IVPB SCH (02:00)
[2020-07-05] MEDS ORDERED: MAGNESIUM SULF 50% (8.12 MEQ/2 ML-1 GM VIAL) IVPB ONE ×2 (02:13→04:09)
[2020-07-05] MEDS ORDERED: ASPIRIN 81 MG CHEWABLE TABLETS NGT ONE (02:14)
[2020-07-05] MEDS ORDERED: HEPARIN NA (PORCINE) 5,000 UNITS/ML 1ML VIAL IVPUSH PRN ×2 (02:16)
[2020-07-05] MEDS: KCL 10 MEQ IVPB 10 MEQ/100 ML INFUS.BAG IVPB SCH ×6 (02:25→21:26)
[2020-07-05] MEDS: HEPARIN - 25,000 UNIT in SODIUM CHLORIDE 495 ML IV SCH (02:32)
[2020-07-05] MEDS: MIDAZOLAM IN 0.9 % SOD.CHLORID 100 MG/100 ML PLAST..BAG IVPB SCH (04:00)
[2020-07-05] MEDS ORDERED: AMIODARONE IN DEXTROSE,ISO-OSM 150 MG/100 ML BAG IVPB ONE (04:21)
[2020-07-05] MEDS ORDERED: AMIODARONE IN DEXTROSE,ISO-OSM 360 MG/200 ML BAG IVPB ONE (04:30)
[2020-07-05] MEDS ORDERED: AMIODARONE IN DEXTROSE,ISO-OSM 150 MG/100 ML BAG ONE (04:33)
[2020-07-05] MEDS: GABAPENTIN 250 MG/5 ML ORAL SOLUTION, 470 ML BOTTLE PO SCH ×3 (06:35→21:27)
[2020-07-05] MEDS: HYDROCORTISONE SOD SUCCINATE 100 MG/2 ML VIAL IVPUSH SCH ×3 (06:36→21:27)
[2020-07-05 07:27] LABS: BASO % 0.2 % (0-2.0); HEMATOCRIT 25.7 % (35.4-49); HEMOGLOBIN 8.5 GM/dL (11.7-16.9); LYMPH % 7.8 % (8-40); MEAN CELL VOLUME 87.8 fl (80-96); MEAN PLT VOLUME 11.3 fl (7.5-11.1); MONO % 7.3 % (3.8-10.2); NEUT % 84.7 % (42.8-82.8); PLATELET COUNT 133 K/MM3 (134-434); RBC 2.93 M/mm3 (4.00-5.60); RDW 13.5 % (11.9-15.9); WHITE BLOOD COUNT 11.9 K/mm3 (4.0-10.0)
[2020-07-05 07:52] LABS: CALCIUM 7.2 mg/dL (8.5-10.1)
[2020-07-05 07:53] LABS: ALBUMIN 1.9 g/dl (3.4-5.0); BLOOD UREA NITROGEN 36.6 mg/dL (7-18); MAGNESIUM 2.4 mg/dL (1.8-2.4)
[2020-07-05 07:56] LABS: CREATININE 0.7 mg/dL (0.55-1.3); PHOSPHOROUS 3.3 mg/dL (2.5-4.9)
[2020-07-05 07:57] LABS: BILIRUBIN,TOTAL 0.4 mg/dL (0.2-1); TOT PROT 5.1 g/dl (6.4-8.2)
[2020-07-05] MEDS: AMINO ACIDS/PROTEIN HYDROLYS 30 ML LIQUID.PKT PO SCH (08:56)
[2020-07-05] MEDS: MULTIVIT-MINERALS ORAL LIQUID PO SCH (09:26)
[2020-07-05] MEDS: BACLOFEN 10 MG TABLET (FP) PO SCH ×2 (09:27→21:26)
[2020-07-05] MEDS: MIDODRINE HCL 5 MG TABLET PO SCH ×3 (09:32→18:20)
[2020-07-05] MEDS: PANTOPRAZOLE SODIUM 40 MG VIAL IVPUSH SCH (09:32)
[2020-07-05] MEDS: VASOPRESSIN 40 UNITS in SODIUM CHLORIDE 98 ML IVPB SCH (10:06)
[2020-07-05] MEDS ORDERED: AMIODARONE IN DEXTROSE,ISO-OSM 360 MG/200 ML BAG IVPB SCH (10:30)
[2020-07-05] MEDS: LACTATED RINGERS SOLUTION 1,000 ML/1,000 ML INFUS.BAG IV SCH (12:14)
[2020-07-05] MEDS ORDERED: PT OWN MED DRAWER 7, Y5N ONE ×2 (16:23→21:14)
[2020-07-05] MEDS ORDERED: POTASSIUM CHLORIDE ORAL LIQUID 20 MEQ/15 ML NGT ONE ×2 (20:08→21:30)
[2020-07-05] MEDS ORDERED: CALCIUM GLUCONATE 10% - 1,000 MG/10 ML VIAL IVPB ONE (20:08)
[2020-07-05] MEDS: SCOPOLAMINE HYDROBROMIDE 1 PATCH PATCH.TD72 TD SCH (21:26)
[2020-07-06] MEDS: HEPARIN - 25,000 UNIT in SODIUM CHLORIDE 495 ML IV SCH (01:30)
[2020-07-06] MEDS: MEROPENEM 1 GM in DEXTROSE 5%-WATER 100 ML IVPB SCH ×3 (02:50→17:16)
[2020-07-06] MEDS ORDERED: DEXTROSE 5%-WATER 100 ML IVPB ONE ×3 (03:02→17:12)
[2020-07-06] MEDS ORDERED: MEROPENEM 1 GM VIAL (RESTRICTED TO ID) IVPB ONE ×3 (03:02→17:12)
[2020-07-06] MEDS: MIDAZOLAM IN 0.9 % SOD.CHLORID 100 MG/100 ML PLAST..BAG IVPB SCH (03:09)
[2020-07-06] MEDS ORDERED: PT OWN MED DRAWER 7, Y5N ONE ×6 (06:24→23:46)
[2020-07-06] MEDS: GABAPENTIN 250 MG/5 ML ORAL SOLUTION, 470 ML BOTTLE PO SCH ×3 (06:25→22:14)
[2020-07-06] MEDS: HYDROCORTISONE SOD SUCCINATE 100 MG/2 ML VIAL IVPUSH SCH ×3 (06:25→22:15)
[2020-07-06 07:25] LABS: HEMATOCRIT 25.9 % (35.4-49); HEMOGLOBIN 8.7 GM/dL (11.7-16.9); MCH 29.2 pg (25.7-33.7); MCHC 33.5 g/dl (32.0-35.9); MEAN CELL VOLUME 87.2 fl (80-96); MEAN PLT VOLUME 11.9 fl (7.5-11.1); PLATELET COUNT 156 K/MM3 (134-434); RBC 2.97 M/mm3 (4.00-5.60); RDW 13.7 % (11.9-15.9); WHITE BLOOD COUNT 12.9 K/mm3 (4.0-10.0)
[2020-07-06 07:28] LABS: POTASSIUM 4.6 mmol/L (3.5-5.1)
[2020-07-06 07:32] LABS: BLOOD UREA NITROGEN 36.3 mg/dL (7-18); CALCIUM 7.8 mg/dL (8.5-10.1); MAGNESIUM 2.3 mg/dL (1.8-2.4)
[2020-07-06 07:34] LABS: CREATININE 0.7 mg/dL (0.55-1.3)
[2020-07-06 07:35] LABS: BILIRUBIN,TOTAL 0.3 mg/dL (0.2-1); PHOSPHOROUS 2.3 mg/dL (2.5-4.9); TOT PROT 5.2 g/dl (6.4-8.2)
[2020-07-06] MEDS: FENTANYL IVPB 500 MCG/100 ML BAG IVPB SCH (08:00)
[2020-07-06] MEDS ORDERED: NAPH,MB-DB/K PH,MBDB POWDER PACKET PO ONE ×2 (08:45→17:00)
[2020-07-06] MEDS: AMINO ACIDS/PROTEIN HYDROLYS 30 ML LIQUID.PKT PO SCH (08:46)
[2020-07-06] MEDS: MIDODRINE HCL 5 MG TABLET PO SCH ×3 (09:04→18:11)
[2020-07-06] MEDS: PANTOPRAZOLE SODIUM 40 MG VIAL IVPUSH SCH (09:04)
[2020-07-06] MEDS: MULTIVIT-MINERALS ORAL LIQUID PO SCH (09:16)
[2020-07-06] MEDS: BACLOFEN 10 MG TABLET (FP) PO SCH ×2 (09:16→22:13)
[2020-07-06] MEDS: LACTATED RINGERS SOLUTION 1,000 ML/1,000 ML INFUS.BAG IV SCH (10:00)
[2020-07-06] MEDS: VASOPRESSIN 40 UNITS in SODIUM CHLORIDE 98 ML IVPB SCH (10:00)
[2020-07-06] MEDS ORDERED: TIGECYCLINE 100 MG in DEXTROSE 5%-WATER - 100 ML IVPB ONE (15:30)
[2020-07-06] MEDS: TIGECYCLINE 50 MG in DEXTROSE 5%-WATER 100 ML IVPB SCH (23:00)
[2020-07-07] MEDS ORDERED: DEXTROSE 5%-WATER 100 ML IVPB ONE ×4 (02:56→16:50)
[2020-07-07] MEDS ORDERED: MEROPENEM 1 GM VIAL (RESTRICTED TO ID) IVPB ONE ×4 (02:56→16:50)
[2020-07-07] MEDS: MEROPENEM 1 GM in DEXTROSE 5%-WATER 100 ML IVPB SCH ×3 (02:59→17:05)
[2020-07-07] MEDS ORDERED: PT OWN MED DRAWER 7, Y5N ONE ×5 (06:00→21:49)
[2020-07-07] MEDS: HEPARIN - 25,000 UNIT in SODIUM CHLORIDE 495 ML IV SCH (06:02)
[2020-07-07] MEDS: GABAPENTIN 250 MG/5 ML ORAL SOLUTION, 470 ML BOTTLE PO SCH ×3 (06:02→21:50)
[2020-07-07] MEDS: HYDROCORTISONE SOD SUCCINATE 100 MG/2 ML VIAL IVPUSH SCH ×4 (06:02→21:50)
[2020-07-07 07:44] LABS: BASO % 0.1 % (0-2.0); HEMATOCRIT 23.9 % (35.4-49); HEMOGLOBIN 7.9 GM/dL (11.7-16.9); LYMPH % 3.5 % (8-40); MCH 28.9 pg (25.7-33.7); MEAN CELL VOLUME 87.6 fl (80-96); MEAN PLT VOLUME 12.1 fl (7.5-11.1); MONO % 4.3 % (3.8-10.2); NEUT % 92.1 % (42.8-82.8); PLATELET COUNT 122 K/MM3 (134-434); RBC 2.73 M/mm3 (4.00-5.60); RDW 13.4 % (11.9-15.9); WHITE BLOOD COUNT 12.4 K/mm3 (4.0-10.0)
[2020-07-07 07:49] LABS: POTASSIUM 3.1 mmol/L (3.5-5.1)
[2020-07-07 07:52] LABS: CALCIUM 7.5 mg/dL (8.5-10.1)
[2020-07-07 07:53] LABS: ALBUMIN 1.8 g/dl (3.4-5.0); BLOOD UREA NITROGEN 45.5 mg/dL (7-18); MAGNESIUM 1.9 mg/dL (1.8-2.4)
[2020-07-07 07:56] LABS: CREATININE 0.6 mg/dL (0.55-1.3); PHOSPHOROUS 2.2 mg/dL (2.5-4.9)
[2020-07-07 07:57] LABS: BILIRUBIN,TOTAL 0.4 mg/dL (0.2-1); TOT PROT 4.6 g/dl (6.4-8.2)
[2020-07-07] MEDS: TIGECYCLINE 50 MG in DEXTROSE 5%-WATER 100 ML IVPB SCH ×2 (08:59→21:51)
[2020-07-07] MEDS: AMINO ACIDS/PROTEIN HYDROLYS 30 ML LIQUID.PKT PO SCH (08:59)
[2020-07-07] MEDS: KCL 10 MEQ IVPB 10 MEQ/100 ML INFUS.BAG IVPB SCH ×3 (08:59→10:53)
[2020-07-07] MEDS ORDERED: POTASSIUM CHLORIDE ORAL LIQUID 20 MEQ/15 ML PO ONE (09:00)
[2020-07-07] MEDS: MIDODRINE HCL 5 MG TABLET PO SCH ×3 (09:00→17:06)
[2020-07-07] MEDS: PANTOPRAZOLE SODIUM 40 MG VIAL IVPUSH SCH (09:01)
[2020-07-07] MEDS: MULTIVIT-MINERALS ORAL LIQUID PO SCH (09:11)
[2020-07-07] MEDS: BACLOFEN 10 MG TABLET (FP) PO SCH ×2 (09:11→21:50)
[2020-07-07] MEDS: ACETAMINOPHEN 325 MG TABLET (FP) PO PRN (09:13)
[2020-07-07] MEDS: LACTATED RINGERS SOLUTION 1,000 ML/1,000 ML INFUS.BAG IV SCH (11:14)
[2020-07-08] MEDS ORDERED: MEROPENEM 1 GM VIAL (RESTRICTED TO ID) IVPB ONE ×2 (00:09→08:51)
[2020-07-08] MEDS ORDERED: DEXTROSE 5%-WATER 100 ML IVPB ONE ×2 (00:09→08:52)
[2020-07-08] MEDS: MEROPENEM 1 GM in DEXTROSE 5%-WATER 100 ML IVPB SCH ×2 (02:58→09:49)
[2020-07-08] MEDS: HYDROCORTISONE SOD SUCCINATE 100 MG/2 ML VIAL IVPUSH SCH ×3 (03:41→17:03)
[2020-07-08] MEDS: HEPARIN - 25,000 UNIT in SODIUM CHLORIDE 495 ML IV SCH (03:41)
[2020-07-08] MEDS: GABAPENTIN 250 MG/5 ML ORAL SOLUTION, 470 ML BOTTLE PO SCH ×2 (05:53→13:17)
[2020-07-08 08:15] LABS: HEMATOCRIT 25.1 % (35.4-49); HEMOGLOBIN 8.1 GM/dL (11.7-16.9); MCH 28.6 pg (25.7-33.7); MCHC 32.4 g/dl (32.0-35.9); MEAN CELL VOLUME 88.2 fl (80-96); MEAN PLT VOLUME 12.3 fl (7.5-11.1); PLATELET COUNT 152 K/MM3 (134-434); RBC 2.85 M/mm3 (4.00-5.60); RDW 13.6 % (11.9-15.9); WHITE BLOOD COUNT 16.4 K/mm3 (4.0-10.0)
[2020-07-08 08:31] LABS: POTASSIUM 3.3 mmol/L (3.5-5.1)
[2020-07-08 08:40] LABS: CALCIUM 7.6 mg/dL (8.5-10.1)
[2020-07-08 08:42] LABS: MAGNESIUM 1.7 mg/dL (1.8-2.4)
[2020-07-08 08:44] LABS: CREATININE 0.5 mg/dL (0.55-1.3); PHOSPHOROUS 2.6 mg/dL (2.5-4.9)
[2020-07-08] MEDS ORDERED: PT OWN MED DRAWER 7, Y5N ONE ×2 (08:53→23:09)
[2020-07-08] MEDS: AMINO ACIDS/PROTEIN HYDROLYS 30 ML LIQUID.PKT PO SCH (08:59)
[2020-07-08] MEDS: MULTIVIT-MINERALS ORAL LIQUID PO SCH (09:48)
[2020-07-08] MEDS: MIDODRINE HCL 5 MG TABLET PO SCH ×3 (09:49→18:19)
[2020-07-08] MEDS: BACLOFEN 10 MG TABLET (FP) PO SCH ×2 (09:49→22:15)
[2020-07-08] MEDS: TIGECYCLINE 50 MG in DEXTROSE 5%-WATER 100 ML IVPB SCH ×2 (09:50→22:15)
[2020-07-08] MEDS: PANTOPRAZOLE SODIUM 40 MG VIAL IVPUSH SCH (09:50)
[2020-07-08] MEDS: SCOPOLAMINE HYDROBROMIDE 1 PATCH PATCH.TD72 TD SCH (20:21)
[2020-07-08] MEDS ORDERED: NOREPINEPHRINE BITARTRATE 4,000 MCG in DEXTROSE 5%-WATER - 496 ML IV SCH (22:15)
[2020-07-08] MEDS ORDERED: INSULIN REGULAR HUMAN 100 UNITS/ML *VIAL ONE (23:09)
[2020-07-08] MEDS: DEXMEDETOMIDINE IN 0.9 % NACL 400 MCG/100 ML VIAL IVPB SCH (23:10)
[2020-07-09] MEDS: HEPARIN - 25,000 UNIT in SODIUM CHLORIDE 495 ML IV SCH ×2 (00:45→04:29)
[2020-07-09] MEDS: GABAPENTIN 250 MG/5 ML ORAL SOLUTION, 470 ML BOTTLE PO SCH ×4 (00:46→22:42)
[2020-07-09] MEDS: HYDROCORTISONE SOD SUCCINATE 100 MG/2 ML VIAL IVPUSH SCH ×3 (02:50→17:30)
[2020-07-09] MEDS: HYDROmorphone HCl 2 MG/ML VIAL IVPUSH PRN ×2 (03:00→22:43)
[2020-07-09] MEDS: NOREPINEPHRINE BITARTRATE 16,000 MCG in SODIUM CHLORIDE 484 ML IV SCH (04:30)
[2020-07-09] MEDS ORDERED: INSULIN REGULAR HUMAN 100 UNITS/ML *VIAL ONE (06:06)
[2020-07-09 07:40] LABS: BASO % 0.1 % (0-2.0); EOS % 0.1 % (0-4.5); HEMATOCRIT 26.2 % (35.4-49); HEMOGLOBIN 8.5 GM/dL (11.7-16.9); LYMPH % 2.1 % (8-40); MCH 28.8 pg (25.7-33.7); MCHC 32.5 g/dl (32.0-35.9); MEAN CELL VOLUME 88.5 fl (80-96); MEAN PLT VOLUME 11.9 fl (7.5-11.1); MONO % 1.9 % (3.8-10.2); NEUT % 95.8 % (42.8-82.8); PLATELET COUNT 196 K/MM3 (134-434); RBC 2.96 M/mm3 (4.00-5.60); RDW 13.8 % (11.9-15.9); WHITE BLOOD COUNT 27.2 K/mm3 (4.0-10.0)
[2020-07-09 08:08] LABS: POTASSIUM 3.1 mmol/L (3.5-5.1)
[2020-07-09 08:17] LABS: CALCIUM 7.4 mg/dL (8.5-10.1)
[2020-07-09 08:19] LABS: BLOOD UREA NITROGEN 54.8 mg/dL (7-18); MAGNESIUM 1.7 mg/dL (1.8-2.4)
[2020-07-09 08:21] LABS: CREATININE 0.4 mg/dL (0.55-1.3); PHOSPHOROUS 3.6 mg/dL (2.5-4.9)
[2020-07-09] MEDS: DOPAMINE 400 MG/D5W - 400,000 MCG/250 ML INFUS.BAG IVPB SCH (08:34)
[2020-07-09] MEDS ORDERED: PT OWN MED DRAWER 7, Y5N ONE ×2 (08:37→22:39)
[2020-07-09] MEDS ORDERED: MAGNESIUM 2GM/50ML STERILE WATER IVPB IVPB ONE (09:00)
[2020-07-09] MEDS ORDERED: POTASSIUM CHLORIDE ORAL LIQUID 20 MEQ/15 ML PO ONE (09:00)
[2020-07-09] MEDS: AMINO ACIDS/PROTEIN HYDROLYS 30 ML LIQUID.PKT PO SCH (09:03)
[2020-07-09] MEDS: PANTOPRAZOLE SODIUM 40 MG VIAL IVPUSH SCH (09:04)
[2020-07-09] MEDS: MIDODRINE HCL 5 MG TABLET PO SCH ×3 (09:04→17:30)
[2020-07-09] MEDS: BACLOFEN 10 MG TABLET (FP) PO SCH (09:05)
[2020-07-09] MEDS: KCL 10 MEQ IVPB 10 MEQ/100 ML INFUS.BAG IVPB SCH ×3 (09:05→12:15)
[2020-07-09] MEDS: MULTIVIT-MINERALS ORAL LIQUID PO SCH (09:05)
[2020-07-09] MEDS: TIGECYCLINE 50 MG in DEXTROSE 5%-WATER 100 ML IVPB SCH ×2 (09:06→22:43)
[2020-07-09 10:24] LABS: ANISOCYTOSIS 0; HELMET CELLS 0; HOWELL-JOLLY BODIES 0; MACROCYTOSIS 0; OVALOCYTE 0; PLATELET ESTIMATE NORMAL; ROULEAU 0; SICKELED CELLS 0; TARGET CELLS 0; TEAR DROP CELLS 0; TOXIC GRANULATION 0
[2020-07-09] MEDS: DEXMEDETOMIDINE IN 0.9 % NACL 400 MCG/100 ML VIAL IVPB SCH (22:37)
[2020-07-09] MEDS ORDERED: INSULIN (LEVEMIR) 100 UNITS/ML UNITS SQ ONE (22:39)
[2020-07-10] MEDS: BACLOFEN 10 MG TABLET (FP) PO SCH ×3 (00:30→21:30)
[2020-07-10] MEDS ORDERED: PT OWN MED DRAWER 7, Y5N ONE ×5 (00:35→21:04)
[2020-07-10] MEDS: HEPARIN - 25,000 UNIT in SODIUM CHLORIDE 495 ML IV SCH ×2 (00:46→03:07)
[2020-07-10] MEDS: HYDROCORTISONE SOD SUCCINATE 100 MG/2 ML VIAL IVPUSH SCH ×3 (02:50→17:24)
[2020-07-10] MEDS: HYDROmorphone HCl 2 MG/ML VIAL IVPUSH PRN (03:08)
[2020-07-10] MEDS ORDERED: INSULIN REGULAR HUMAN 100 UNITS/ML *VIAL ONE (05:55)
[2020-07-10] MEDS: GABAPENTIN 250 MG/5 ML ORAL SOLUTION, 470 ML BOTTLE PO SCH ×3 (06:57→21:30)
[2020-07-10] MEDS: NOREPINEPHRINE BITARTRATE 16,000 MCG in SODIUM CHLORIDE 484 ML IV SCH (06:58)
[2020-07-10] MEDS: DOPAMINE 400 MG/D5W - 400,000 MCG/250 ML INFUS.BAG IVPB SCH ×3 (06:58→21:31)
[2020-07-10 07:59] LABS: BASO % 0.2 % (0-2.0); HEMATOCRIT 27.2 % (35.4-49); MCHC 33.2 g/dl (32.0-35.9); MEAN CELL VOLUME 87.3 fl (80-96); MEAN PLT VOLUME 11.5 fl (7.5-11.1); MONO % 3.2 % (3.8-10.2); NEUT % 95.6 % (42.8-82.8); PLATELET COUNT 226 K/MM3 (134-434); RBC 3.12 M/mm3 (4.00-5.60); RDW 13.9 % (11.9-15.9); WHITE BLOOD COUNT 24.3 K/mm3 (4.0-10.0)
[2020-07-10 08:08] LABS: POTASSIUM 3.2 mmol/L (3.5-5.1)
[2020-07-10 08:09] LABS: BLOOD UREA NITROGEN 49.4 mg/dL (7-18); CALCIUM 7.4 mg/dL (8.5-10.1)
[2020-07-10 08:10] LABS: MAGNESIUM 1.7 mg/dL (1.8-2.4)
[2020-07-10 08:13] LABS: CREATININE 0.4 mg/dL (0.55-1.3); PHOSPHOROUS 3.1 mg/dL (2.5-4.9)
[2020-07-10] MEDS: AMINO ACIDS/PROTEIN HYDROLYS 30 ML LIQUID.PKT PO SCH (09:49)
[2020-07-10] MEDS: PANTOPRAZOLE SODIUM 40 MG VIAL IVPUSH SCH (09:49)
[2020-07-10] MEDS: TIGECYCLINE 50 MG in DEXTROSE 5%-WATER 100 ML IVPB SCH ×2 (09:52→21:30)
[2020-07-10] MEDS: MULTIVIT-MINERALS ORAL LIQUID PO SCH (09:54)
[2020-07-10] MEDS: MIDODRINE HCL 5 MG TABLET PO SCH ×3 (09:56→17:19)
[2020-07-10] MEDS ORDERED: MIDAZOLAM 100 MG/100 ML MG IVPB ONE ×2 (10:45→21:26)
[2020-07-10] MEDS: MIDAZOLAM 100 MG in SODIUM CHLORIDE 100 ML IVPB SCH ×2 (10:55→21:30)
[2020-07-10] MEDS ORDERED: MAGNESIUM SULF 50% (8.12 MEQ/2 ML-1 GM VIAL) IVPB ONE ×2 (11:03→12:21)
[2020-07-10 11:07] LABS: ANISOCYTOSIS 0; MACROCYTOSIS 0; PLATELET ESTIMATE NORMAL
[2020-07-10] MEDS ORDERED: POTASSIUM CHLORIDE ORAL LIQUID 20 MEQ/15 ML PO ONE (11:30)
[2020-07-10] MEDS: KCL 10 MEQ IVPB 10 MEQ/100 ML INFUS.BAG IVPB SCH ×3 (11:37→13:30)
[2020-07-10] MEDS: POTASSIUM CHLORIDE ORAL LIQUID 20 MEQ/15 ML PO ONE ×2 (12:28→12:41)
[2020-07-10] MEDS ORDERED: KCL 10 MEQ IVPB 10 MEQ/100 ML INFUS.BAG IVPB SCH (12:30)
[2020-07-10 20:08] LABS: BASO % 0.6 % (0-2.0); HEMATOCRIT 30.9 % (35.4-49); HEMOGLOBIN 9.9 GM/dL (11.7-16.9); LYMPH % 1.1 % (8-40); MCH 28.5 pg (25.7-33.7); MEAN CELL VOLUME 89.1 fl (80-96); MEAN PLT VOLUME 11.5 fl (7.5-11.1); MONO % 1.9 % (3.8-10.2); NEUT % 96.4 % (42.8-82.8); PLATELET COUNT 252 K/MM3 (134-434); RBC 3.46 M/mm3 (4.00-5.60); RDW 14.2 % (11.9-15.9); WHITE BLOOD COUNT 28.1 K/mm3 (4.0-10.0)
[2020-07-10 20:28] LABS: POTASSIUM 3.9 mmol/L (3.5-5.1)
[2020-07-10 20:29] LABS: CALCIUM 7.7 mg/dL (8.5-10.1)
[2020-07-10 20:30] LABS: MAGNESIUM 2.2 mg/dL (1.8-2.4)
[2020-07-10 20:33] LABS: CREATININE 0.4 mg/dL (0.55-1.3); PHOSPHOROUS 3.8 mg/dL (2.5-4.9)
[2020-07-10] MEDS ORDERED: INSULIN (LEVEMIR) 100 UNITS/ML UNITS SQ ONE (21:04)
[2020-07-11] MEDS: MIDAZOLAM 100 MG/100 ML MG IVPB SCH (00:42)
[2020-07-11] MEDS ORDERED: NOREPINEPHRINE D5W PREMIX 16,000 MCG/500 ML BAG IVPB ONE (01:46)
[2020-07-11] MEDS ORDERED: RAPID SEQUENCE INTUBATION KIT NR ONE (01:50)
[2020-07-11] MEDS ORDERED: PT OWN MED DRAWER 7, Y5N ONE ×5 (02:05→22:43)
[2020-07-11] MEDS: HYDROCORTISONE SOD SUCCINATE 100 MG/2 ML VIAL IVPUSH SCH ×3 (03:15→18:44)
[2020-07-11] MEDS: NOREPINEPHRINE NS PREMIX 16,000 MCG/500 ML BAG IVPB SCH (05:42)
[2020-07-11] MEDS: DEXMEDETOMIDINE IN 0.9 % NACL 400 MCG/100 ML VIAL IVPB SCH (05:42)
[2020-07-11] MEDS: GABAPENTIN 250 MG/5 ML ORAL SOLUTION, 470 ML BOTTLE PO SCH ×3 (06:12→22:16)
[2020-07-11 07:50] LABS: HEMATOCRIT 29.5 % (35.4-49); HEMOGLOBIN 9.4 GM/dL (11.7-16.9); LYMPH % 1.3 % (8-40); MCH 28.7 pg (25.7-33.7); MCHC 31.8 g/dl (32.0-35.9); MEAN CELL VOLUME 90.5 fl (80-96); MEAN PLT VOLUME 11.6 fl (7.5-11.1); MONO % 1.5 % (3.8-10.2); NEUT % 97.2 % (42.8-82.8); PLATELET COUNT 280 K/MM3 (134-434); RBC 3.26 M/mm3 (4.00-5.60); RDW 14.4 % (11.9-15.9); WHITE BLOOD COUNT 28.4 K/mm3 (4.0-10.0)
[2020-07-11 08:08] LABS: POTASSIUM 4.1 mmol/L (3.5-5.1)
[2020-07-11 08:12] LABS: INR 1.7 (0.83-1.09); PROTHROMBIN TIME (PATIENT) 20.6 SEC (9.7-13.0)
[2020-07-11 08:13] LABS: ACTIVATED PTT 55.4 SECONDS (25.2-36.5)
[2020-07-11 08:15] LABS: CALCIUM 7.6 mg/dL (8.5-10.1)
[2020-07-11 08:16] LABS: BLOOD UREA NITROGEN 47.9 mg/dL (7-18); MAGNESIUM 2.1 mg/dL (1.8-2.4)
[2020-07-11 08:19] LABS: CREATININE 0.5 mg/dL (0.55-1.3)
[2020-07-11 08:21] LABS: PHOSPHOROUS 3.9 mg/dL (2.5-4.9)
[2020-07-11] MEDS ORDERED: DEXTROSE 50%-WATER - 25 GM/50 ML VIAL IVPUSH ONE (08:45)
[2020-07-11] MEDS ORDERED: DEXTROSE 50%-WATER 25 GM/50 ML DISP.SYRIN ONE (08:52)
[2020-07-11] MEDS: AMINO ACIDS/PROTEIN HYDROLYS 30 ML LIQUID.PKT PO SCH (08:57)
[2020-07-11] MEDS: DOPAMINE 400 MG/D5W - 400,000 MCG/250 ML INFUS.BAG IVPB SCH (09:13)
[2020-07-11] MEDS: BACLOFEN 10 MG TABLET (FP) PO SCH ×2 (09:28→22:48)
[2020-07-11] MEDS: MULTIVIT-MINERALS ORAL LIQUID PO SCH (09:29)
[2020-07-11] MEDS: MIDODRINE HCL 5 MG TABLET PO SCH ×3 (09:29→18:44)
[2020-07-11] MEDS: PANTOPRAZOLE SODIUM 40 MG VIAL IVPUSH SCH (09:29)
[2020-07-11] MEDS: TIGECYCLINE 50 MG in DEXTROSE 5%-WATER 100 ML IVPB SCH ×2 (09:29→22:16)
[2020-07-11 10:41] LABS: ANISOCYTOSIS 0; HELMET CELLS 0; HOWELL-JOLLY BODIES 0; MACROCYTOSIS 0; OVALOCYTE 0; PLATELET ESTIMATE NORMAL; ROULEAU 0; SICKELED CELLS 0; TARGET CELLS 0; TEAR DROP CELLS 0; TOXIC GRANULATION 0
[2020-07-11] MEDS ORDERED: HEPARIN NA (PORCINE) 5,000 UNITS/ML 1ML VIAL IVPUSH PRN ×2 (12:06)
[2020-07-11] MEDS ORDERED: HEPARIN INFUSION - 25,000 UNITS/500 ML INFUS.BAG IVPB SCH (12:15)
[2020-07-11] MEDS ORDERED: MEROPENEM 1 GM VIAL (RESTRICTED TO ID) IVPB ONE ×2 (13:14→17:50)
[2020-07-11] MEDS ORDERED: DEXTROSE 5%-WATER 100 ML IVPB ONE ×2 (13:14→17:50)
[2020-07-11] MEDS: MEROPENEM 1 GM in DEXTROSE 5%-WATER 100 ML IVPB SCH ×2 (13:18→18:44)
[2020-07-11] MEDS ORDERED: MORPHINE SULFATE 2 MG/ML VIAL ONE (14:36)
[2020-07-11] MEDS ORDERED: MORPHINE SULFATE 2 MG/ML VIAL IVPUSH ONE (14:49)
[2020-07-11] MEDS: SCOPOLAMINE HYDROBROMIDE 1 PATCH PATCH.TD72 TD SCH (21:01)
[2020-07-12] MEDS ORDERED: MEROPENEM 1 GM VIAL (RESTRICTED TO ID) IVPB ONE ×3 (01:42→17:37)
[2020-07-12] MEDS ORDERED: DEXTROSE 5%-WATER 100 ML IVPB ONE ×3 (01:42→17:38)
[2020-07-12] MEDS: MEROPENEM 1 GM in DEXTROSE 5%-WATER 100 ML IVPB SCH ×3 (01:43→17:39)
[2020-07-12] MEDS: HYDROCORTISONE SOD SUCCINATE 100 MG/2 ML VIAL IVPUSH SCH ×3 (02:09→18:13)
[2020-07-12] MEDS ORDERED: LACTATED RINGERS SOLUTION 1000 ML INFUS.BAG IV ONE (05:30)
[2020-07-12] MEDS ORDERED: AMIODARONE HCL 150 MG/3 ML VIAL IVPUSH ONE (05:38)
[2020-07-12] MEDS ORDERED: AMIODARONE IN DEXTROSE,ISO-OSM 360 MG/200 ML BAG IVPB ONE (06:15)
[2020-07-12] MEDS: GABAPENTIN 250 MG/5 ML ORAL SOLUTION, 470 ML BOTTLE PO SCH ×3 (06:31→22:55)
[2020-07-12 07:29] LABS: BASO % 0.3 % (0-2.0); HEMATOCRIT 17.7 % (35.4-49); HEMOGLOBIN 5.6 GM/dL (11.7-16.9); MCH 28.8 pg (25.7-33.7); MCHC 31.7 g/dl (32.0-35.9); MEAN CELL VOLUME 90.8 fl (80-96); MEAN PLT VOLUME 11.1 fl (7.5-11.1); MONO % 1.8 % (3.8-10.2); NEUT % 96.9 % (42.8-82.8); PLATELET COUNT 175 K/MM3 (134-434); RBC 1.95 M/mm3 (4.00-5.60); RDW 14.3 % (11.9-15.9); WHITE BLOOD COUNT 13.3 K/mm3 (4.0-10.0)
[2020-07-12 07:51] LABS: BLOOD UREA NITROGEN 30.5 mg/dL (7-18); MAGNESIUM 1.1 mg/dL (1.8-2.4)
[2020-07-12 07:54] LABS: CREATININE 0.2 mg/dL (0.55-1.3); PHOSPHOROUS 2.1 mg/dL (2.5-4.9)
[2020-07-12] MEDS: NOREPINEPHRINE NS PREMIX 16,000 MCG/500 ML BAG IVPB SCH ×2 (08:32→22:27)
[2020-07-12] MEDS: MIDAZOLAM 100 MG/100 ML MG IVPB SCH ×2 (08:32→21:59)
[2020-07-12 08:37] LABS: CALCIUM 5.3 mg/dL (8.5-10.1); POTASSIUM 2.4 mmol/L (3.5-5.1)
[2020-07-12] MEDS ORDERED: METOPROLOL TARTRATE 5 MG/5 ML VIAL IVPUSH ONE (08:49)
[2020-07-12] MEDS ORDERED: POTASSIUM CHLORIDE 20 MEQ PREMIX IVPB 100 ML IVPB ONE ×2 (09:07→11:54)
[2020-07-12] MEDS ORDERED: PT OWN MED DRAWER 7, Y5N ONE ×2 (09:27→22:03)
[2020-07-12] MEDS: PANTOPRAZOLE SODIUM 40 MG VIAL IVPUSH SCH (09:31)
[2020-07-12] MEDS: TIGECYCLINE 50 MG in DEXTROSE 5%-WATER 100 ML IVPB SCH ×2 (09:31→22:13)
[2020-07-12] MEDS: MULTIVIT-MINERALS ORAL LIQUID PO SCH (09:32)
[2020-07-12] MEDS: BACLOFEN 10 MG TABLET (FP) PO SCH ×2 (09:32→22:55)
[2020-07-12] MEDS: AMINO ACIDS/PROTEIN HYDROLYS 30 ML LIQUID.PKT PO SCH (09:32)
[2020-07-12] MEDS: MIDODRINE HCL 5 MG TABLET PO SCH ×3 (09:32→17:40)
[2020-07-12] MEDS ORDERED: CALCIUM GLUCONATE 10% - 1,000 MG/10 ML VIAL IVPB ONE (09:45)
[2020-07-12 09:46] LABS: ANISOCYTOSIS 1+; MACROCYTOSIS 0; OVALOCYTE 2+; PLATELET ESTIMATE NORMAL
[2020-07-12] MEDS ORDERED: POTASSIUM PHOSPHATE 30 MM in SODIUM CHLORIDE 250 ML IVPB ONE ×2 (11:00→14:00)
[2020-07-12] MEDS ORDERED: AMIODARONE IN DEXTROSE,ISO-OSM 360 MG/200 ML BAG IVPB SCH (13:15)
[2020-07-12 13:31] LABS: BASO % 0.3 % (0-2.0); HEMATOCRIT 25.9 % (35.4-49); HEMOGLOBIN 8.3 GM/dL (11.7-16.9); LYMPH % 0.9 % (8-40); MCH 28.6 pg (25.7-33.7); MCHC 31.8 g/dl (32.0-35.9); MEAN CELL VOLUME 89.8 fl (80-96); MONO % 2.3 % (3.8-10.2); NEUT % 96.5 % (42.8-82.8); PLATELET COUNT 243 K/MM3 (134-434); RBC 2.89 M/mm3 (4.00-5.60); RDW 14.4 % (11.9-15.9); WHITE BLOOD COUNT 18.8 K/mm3 (4.0-10.0)
[2020-07-12 14:37] LABS: ANISOCYTOSIS 1+; MACROCYTOSIS 0; PLATELET ESTIMATE NORMAL
[2020-07-12 16:47] LABS: POTASSIUM 3.6 mmol/L (3.5-5.1)
[2020-07-12 16:49] LABS: BLOOD UREA NITROGEN 39.4 mg/dL (7-18)
[2020-07-12 16:52] LABS: CREATININE 0.4 mg/dL (0.55-1.3)
[2020-07-12 17:42] LABS: MAGNESIUM 1.5 mg/dL (1.8-2.4)
[2020-07-12] MEDS ORDERED: MAGNESIUM SULF 50% (8.12 MEQ/2 ML-1 GM VIAL) IVPB ONE (21:07)
[2020-07-13] MEDS: NOREPINEPHRINE NS PREMIX 16,000 MCG/500 ML BAG IVPB SCH (00:42)
[2020-07-13] MEDS: MIDAZOLAM 100 MG/100 ML MG IVPB SCH ×5 (00:42→23:56)
[2020-07-13] MEDS ORDERED: MEROPENEM 1 GM VIAL (RESTRICTED TO ID) IVPB ONE ×4 (00:48→19:47)
[2020-07-13] MEDS ORDERED: DEXTROSE 5%-WATER 100 ML IVPB ONE ×4 (00:48→19:47)
[2020-07-13] MEDS: HYDROCORTISONE SOD SUCCINATE 100 MG/2 ML VIAL IVPUSH SCH ×3 (02:30→17:18)
[2020-07-13] MEDS: MEROPENEM 1 GM in DEXTROSE 5%-WATER 100 ML IVPB SCH ×3 (02:30→17:17)
[2020-07-13] MEDS: GABAPENTIN 250 MG/5 ML ORAL SOLUTION, 470 ML BOTTLE PO SCH ×4 (05:27→21:32)
[2020-07-13 07:28] LABS: BASO % 0.3 % (0-2.0); HEMATOCRIT 26.4 % (35.4-49); HEMOGLOBIN 8.6 GM/dL (11.7-16.9); LYMPH % 0.8 % (8-40); MCH 28.7 pg (25.7-33.7); MCHC 32.7 g/dl (32.0-35.9); MONO % 2.9 % (3.8-10.2); PLATELET COUNT 243 K/MM3 (134-434); RDW 15.1 % (11.9-15.9); WHITE BLOOD COUNT 25.1 K/mm3 (4.0-10.0)
[2020-07-13 07:45] LABS: POTASSIUM 3.8 mmol/L (3.5-5.1)
[2020-07-13 07:53] LABS: ALBUMIN 1.4 g/dl (3.4-5.0); BILIRUBIN,TOTAL 0.4 mg/dL (0.2-1); BLOOD UREA NITROGEN 39.6 mg/dL (7-18); CALCIUM 7.4 mg/dL (8.5-10.1); CREATININE 0.4 mg/dL (0.55-1.3); MAGNESIUM 1.7 mg/dL (1.8-2.4); PHOSPHOROUS 3.7 mg/dL (2.5-4.9); TOT PROT 4.2 g/dl (6.4-8.2)
[2020-07-13] MEDS ORDERED: MAGNESIUM SULF 50% (8.12 MEQ/2 ML-1 GM VIAL) IVPB ONE (08:30)
[2020-07-13] MEDS ORDERED: PT OWN MED DRAWER 7, Y5N ONE ×4 (09:01→20:49)
[2020-07-13] MEDS: AMINO ACIDS/PROTEIN HYDROLYS 30 ML LIQUID.PKT PO SCH (09:10)
[2020-07-13] MEDS: KCL 10 MEQ IVPB 10 MEQ/100 ML INFUS.BAG IVPB SCH ×2 (09:11→09:15)
[2020-07-13] MEDS: MULTIVIT-MINERALS ORAL LIQUID PO SCH (09:11)
[2020-07-13] MEDS: MIDODRINE HCL 5 MG TABLET PO SCH ×3 (09:12→17:18)
[2020-07-13] MEDS: PANTOPRAZOLE SODIUM 40 MG VIAL IVPUSH SCH (09:12)
[2020-07-13] MEDS: TIGECYCLINE 50 MG in DEXTROSE 5%-WATER 100 ML IVPB SCH ×2 (09:13→21:32)
[2020-07-13] MEDS: BACLOFEN 10 MG TABLET (FP) PO SCH ×2 (09:20→23:00)
[2020-07-13 13:56] LABS: ANISOCYTOSIS 1+; MACROCYTOSIS 0; OVALOCYTE 1+; PLATELET ESTIMATE NORMAL
[2020-07-14] MEDS: HYDROCORTISONE SOD SUCCINATE 100 MG/2 ML VIAL IVPUSH SCH ×3 (03:00→18:01)
[2020-07-14] MEDS: NOREPINEPHRINE NS PREMIX 16,000 MCG/500 ML BAG IVPB SCH ×2 (03:34→03:35)
[2020-07-14] MEDS: MEROPENEM 1 GM in DEXTROSE 5%-WATER 100 ML IVPB SCH ×3 (03:38→18:01)
[2020-07-14] MEDS: GABAPENTIN 250 MG/5 ML ORAL SOLUTION, 470 ML BOTTLE PO SCH ×3 (05:23→22:04)
[2020-07-14 07:34] LABS: BASO % 0.4 % (0-2.0); HEMATOCRIT 26.3 % (35.4-49); HEMOGLOBIN 8.4 GM/dL (11.7-16.9); LYMPH % 1.4 % (8-40); MCH 28.4 pg (25.7-33.7); MCHC 32.1 g/dl (32.0-35.9); MEAN CELL VOLUME 88.4 fl (80-96); MEAN PLT VOLUME 10.6 fl (7.5-11.1); MONO % 3.9 % (3.8-10.2); NEUT % 94.3 % (42.8-82.8); PLATELET COUNT 225 K/MM3 (134-434); RBC 2.97 M/mm3 (4.00-5.60); RDW 14.7 % (11.9-15.9); WHITE BLOOD COUNT 21.3 K/mm3 (4.0-10.0)
[2020-07-14 07:58] LABS: POTASSIUM 3.9 mmol/L (3.5-5.1)
[2020-07-14 08:03] LABS: ALBUMIN 1.3 g/dl (3.4-5.0)
[2020-07-14 08:04] LABS: BLOOD UREA NITROGEN 43.1 mg/dL (7-18); CALCIUM 7.7 mg/dL (8.5-10.1)
[2020-07-14 08:05] LABS: MAGNESIUM 1.7 mg/dL (1.8-2.4)
[2020-07-14 08:07] LABS: CREATININE 0.2 mg/dL (0.55-1.3)
[2020-07-14 08:08] LABS: PHOSPHOROUS 3.2 mg/dL (2.5-4.9)
[2020-07-14 08:09] LABS: BILIRUBIN,TOTAL 0.3 mg/dL (0.2-1)
[2020-07-14] MEDS: LACTATED RINGERS SOLUTION 1,000 ML/1,000 ML INFUS.BAG IV SCH (08:25)
[2020-07-14 09:32] LABS: ANISOCYTOSIS 1+; MACROCYTOSIS 0; PLATELET ESTIMATE NORMAL
[2020-07-14] MEDS ORDERED: MIDAZOLAM 100 MG/100 ML MG IVPB ONE (09:51)
[2020-07-14] MEDS ORDERED: MEROPENEM 1 GM VIAL (RESTRICTED TO ID) IVPB ONE ×2 (09:51→16:04)
[2020-07-14] MEDS ORDERED: DEXTROSE 5%-WATER 100 ML IVPB ONE ×2 (09:52→16:04)
[2020-07-14] MEDS: MULTIVIT-MINERALS ORAL LIQUID PO SCH (10:04)
[2020-07-14] MEDS: BACLOFEN 10 MG TABLET (FP) PO SCH ×2 (10:05→22:03)
[2020-07-14] MEDS: PANTOPRAZOLE SODIUM 40 MG VIAL IVPUSH SCH (10:06)
[2020-07-14] MEDS: TIGECYCLINE 50 MG in DEXTROSE 5%-WATER 100 ML IVPB SCH ×2 (10:07→22:04)
[2020-07-14] MEDS: MIDODRINE HCL 5 MG TABLET PO SCH ×3 (10:08→18:01)
[2020-07-14] MEDS: AMINO ACIDS/PROTEIN HYDROLYS 30 ML LIQUID.PKT PO SCH (10:08)
[2020-07-14] MEDS: MIDAZOLAM 100 MG/100 ML MG IVPB SCH ×2 (10:09→18:06)
[2020-07-14] MEDS ORDERED: MAGNESIUM SULF 50% (8.12 MEQ/2 ML-1 GM VIAL) IVPB ONE (18:18)
[2020-07-14] MEDS ORDERED: PT OWN MED DRAWER 7, Y5N ONE (22:02)
[2020-07-14] MEDS: SCOPOLAMINE HYDROBROMIDE 1 PATCH PATCH.TD72 TD SCH (22:03)
[2020-07-15] MEDS ORDERED: MEROPENEM 1 GM VIAL (RESTRICTED TO ID) IVPB ONE ×3 (03:22→17:37)
[2020-07-15] MEDS ORDERED: DEXTROSE 5%-WATER 100 ML IVPB ONE ×3 (03:22→17:37)
[2020-07-15] MEDS: MEROPENEM 1 GM in DEXTROSE 5%-WATER 100 ML IVPB SCH ×3 (03:24→17:39)
[2020-07-15] MEDS: HYDROCORTISONE SOD SUCCINATE 100 MG/2 ML VIAL IVPUSH SCH ×3 (03:24→17:40)
[2020-07-15] MEDS: GABAPENTIN 250 MG/5 ML ORAL SOLUTION, 470 ML BOTTLE PO SCH ×3 (06:25→21:00)
[2020-07-15] MEDS: NOREPINEPHRINE NS PREMIX 16,000 MCG/500 ML BAG IVPB SCH ×2 (07:00→23:49)
[2020-07-15 07:20] LABS: HEMATOCRIT 27.7 % (35.4-49); HEMOGLOBIN 9.1 GM/dL (11.7-16.9); MCH 28.8 pg (25.7-33.7); MEAN CELL VOLUME 87.2 fl (80-96); MEAN PLT VOLUME 10.5 fl (7.5-11.1); PLATELET COUNT 212 K/MM3 (134-434); RBC 3.17 M/mm3 (4.00-5.60); RDW 14.7 % (11.9-15.9); WHITE BLOOD COUNT 16.4 K/mm3 (4.0-10.0)
[2020-07-15] MEDS: AMINO ACIDS/PROTEIN HYDROLYS 30 ML LIQUID.PKT PO SCH (08:30)
[2020-07-15] MEDS ORDERED: PT OWN MED DRAWER 7, Y5N ONE ×2 (10:04→20:37)
[2020-07-15] MEDS: PANTOPRAZOLE SODIUM 40 MG VIAL IVPUSH SCH (10:34)
[2020-07-15] MEDS: BACLOFEN 10 MG TABLET (FP) PO SCH ×2 (10:34→21:00)
[2020-07-15] MEDS: TIGECYCLINE 50 MG in DEXTROSE 5%-WATER 100 ML IVPB SCH ×2 (10:35→21:00)
[2020-07-15] MEDS: MIDAZOLAM 100 MG/100 ML MG IVPB SCH ×3 (10:39→23:50)
[2020-07-15] MEDS: MIDODRINE HCL 5 MG TABLET PO SCH ×3 (10:40→19:26)
[2020-07-15] MEDS: LACTATED RINGERS SOLUTION 1,000 ML/1,000 ML INFUS.BAG IV SCH (10:41)
[2020-07-15] MEDS: MULTIVIT-MINERALS ORAL LIQUID PO SCH (10:42)
[2020-07-15 14:33] LABS: POTASSIUM 3.6 mmol/L (3.5-5.1)
[2020-07-15 14:35] LABS: CALCIUM 7.6 mg/dL (8.5-10.1)
[2020-07-15 14:36] LABS: ALBUMIN 1.4 g/dl (3.4-5.0); BLOOD UREA NITROGEN 44.3 mg/dL (7-18); MAGNESIUM 1.9 mg/dL (1.8-2.4)
[2020-07-15 14:39] LABS: CREATININE 0.2 mg/dL (0.55-1.3); PHOSPHOROUS 2.5 mg/dL (2.5-4.9)
[2020-07-15 14:40] LABS: BILIRUBIN,TOTAL 0.3 mg/dL (0.2-1); TOT PROT 4.1 g/dl (6.4-8.2)
[2020-07-16] MEDS ORDERED: MEROPENEM 1 GM VIAL (RESTRICTED TO ID) IVPB ONE ×3 (01:45→16:40)
[2020-07-16] MEDS ORDERED: DEXTROSE 5%-WATER 100 ML IVPB ONE ×3 (01:45→16:40)
[2020-07-16] MEDS: MIDODRINE HCL 5 MG TABLET PO SCH ×3 (01:56→17:20)
[2020-07-16] MEDS: HYDROCORTISONE SOD SUCCINATE 100 MG/2 ML VIAL IVPUSH SCH ×3 (01:56→17:57)
[2020-07-16] MEDS: MEROPENEM 1 GM in DEXTROSE 5%-WATER 100 ML IVPB SCH ×3 (01:56→17:20)
[2020-07-16] MEDS: ACETAMINOPHEN 325 MG TABLET (FP) PO PRN (01:56)
[2020-07-16] MEDS: LACTATED RINGERS SOLUTION 1,000 ML/1,000 ML INFUS.BAG IV SCH ×2 (02:56→20:04)
[2020-07-16] MEDS: GABAPENTIN 250 MG/5 ML ORAL SOLUTION, 470 ML BOTTLE PO SCH ×3 (05:51→22:31)
[2020-07-16 06:53] LABS: HEMATOCRIT 24.2 % (35.4-49); HEMOGLOBIN 8.2 GM/dL (11.7-16.9); MCH 29.2 pg (25.7-33.7); MCHC 33.7 g/dl (32.0-35.9); MEAN CELL VOLUME 86.9 fl (80-96); MEAN PLT VOLUME 10.4 fl (7.5-11.1); PLATELET COUNT 184 K/MM3 (134-434); RBC 2.79 M/mm3 (4.00-5.60); RDW 14.3 % (11.9-15.9); WHITE BLOOD COUNT 9.4 K/mm3 (4.0-10.0)
[2020-07-16 07:13] LABS: POTASSIUM 3.4 mmol/L (3.5-5.1)
[2020-07-16 07:20] LABS: CALCIUM 7.2 mg/dL (8.5-10.1)
[2020-07-16 07:21] LABS: ALBUMIN 1.2 g/dl (3.4-5.0); BLOOD UREA NITROGEN 42.5 mg/dL (7-18); MAGNESIUM 1.6 mg/dL (1.8-2.4)
[2020-07-16 07:24] LABS: CREATININE 0.2 mg/dL (0.55-1.3); PHOSPHOROUS 2.4 mg/dL (2.5-4.9)
[2020-07-16] MEDS ORDERED: PT OWN MED DRAWER 7, Y5N ONE ×4 (07:24→22:26)
[2020-07-16 07:25] LABS: BILIRUBIN,TOTAL 0.4 mg/dL (0.2-1)
[2020-07-16 07:26] LABS: TOT PROT 3.6 g/dl (6.4-8.2)
[2020-07-16] MEDS: AMINO ACIDS/PROTEIN HYDROLYS 30 ML LIQUID.PKT PO SCH ×3 (08:26→22:31)
[2020-07-16] MEDS: TIGECYCLINE 50 MG in DEXTROSE 5%-WATER 100 ML IVPB SCH ×2 (09:23→22:30)
[2020-07-16] MEDS: PANTOPRAZOLE SODIUM 40 MG VIAL IVPUSH SCH (09:26)
[2020-07-16] MEDS: MIDAZOLAM 100 MG/100 ML MG IVPB SCH (09:28)
[2020-07-16] MEDS: BACLOFEN 10 MG TABLET (FP) PO SCH ×2 (09:35→22:31)
[2020-07-16] MEDS: MULTIVIT-MINERALS ORAL LIQUID PO SCH (09:36)
[2020-07-16] MEDS: KCL 10 MEQ IVPB 10 MEQ/100 ML INFUS.BAG IVPB SCH ×3 (09:40→13:20)
[2020-07-16] MEDS ORDERED: MAGNESIUM SULF 50% (8.12 MEQ/2 ML-1 GM VIAL) IVPB ONE (09:45)
[2020-07-16] MEDS ORDERED: VECURONIUM BROMIDE 50 MG/50 ML VIAL IVPUSH ONE (11:10)
[2020-07-16] MEDS ORDERED: PROPOFOL 200 MG/20 ML VIAL IVPUSH ONE (11:11)
[2020-07-16] MEDS ORDERED: PROPOFOL 1,000,000 MCG/100 ML VIAL ONE (11:25)
[2020-07-16] MEDS ORDERED: VECURONIUM BROMIDE 10 MG/10 ML VIAL ONE (11:25)
[2020-07-16] MEDS ORDERED: POTASSIUM PHOSPHATE 15 MM in SODIUM CHLORIDE 100 ML IVPB ONE (13:00)
[2020-07-16] MEDS: FLUDROCORTISONE ACETATE 0.1 MG TABLET (FP) PO SCH (14:10)
[2020-07-17] MEDS ORDERED: MEROPENEM 1 GM VIAL (RESTRICTED TO ID) IVPB ONE ×3 (02:50→15:26)
[2020-07-17] MEDS ORDERED: DEXTROSE 5%-WATER 100 ML IVPB ONE ×3 (02:50→15:26)
[2020-07-17] MEDS: MEROPENEM 1 GM in DEXTROSE 5%-WATER 100 ML IVPB SCH ×3 (03:00→18:25)
[2020-07-17] MEDS: MIDODRINE HCL 5 MG TABLET PO SCH ×3 (03:00→18:29)
[2020-07-17] MEDS: HYDROCORTISONE SOD SUCCINATE 100 MG/2 ML VIAL IVPUSH SCH ×3 (03:00→18:29)
[2020-07-17] MEDS: NOREPINEPHRINE NS PREMIX 16,000 MCG/500 ML BAG IVPB SCH ×2 (03:35→22:52)
[2020-07-17] MEDS: GABAPENTIN 250 MG/5 ML ORAL SOLUTION, 470 ML BOTTLE PO SCH ×3 (05:47→22:51)
[2020-07-17 07:01] LABS: BASO % 0.2 % (0-2.0); EOS % 0.2 % (0-4.5); HEMATOCRIT 24.5 % (35.4-49); HEMOGLOBIN 8.4 GM/dL (11.7-16.9); MCH 29.5 pg (25.7-33.7); MEAN CELL VOLUME 86.7 fl (80-96); MEAN PLT VOLUME 10.7 fl (7.5-11.1); NEUT % 92.6 % (42.8-82.8); PLATELET COUNT 170 K/MM3 (134-434); RBC 2.83 M/mm3 (4.00-5.60); RDW 14.3 % (11.9-15.9); WHITE BLOOD COUNT 8.9 K/mm3 (4.0-10.0)
[2020-07-17 07:23] LABS: CHLORIDE 108 mmol/L (98-107); POTASSIUM 3.6 mmol/L (3.5-5.1); SODIUM 145 mmol/L (136-145)
[2020-07-17 07:32] LABS: CALCIUM 7.1 mg/dL (8.5-10.1)
[2020-07-17 07:33] LABS: ALBUMIN 1.1 g/dl (3.4-5.0); ANION GAP 6 MMOL/L (8-16); BILIRUBIN,TOTAL 0.2 mg/dL (0.2-1); BLOOD UREA NITROGEN 42.8 mg/dL (7-18); CO2 32 mmol/L (21-32); GLUCOSE,RANDOM 92 mg/dL (74-106); MAGNESIUM 1.7 mg/dL (1.8-2.4); TOT PROT 3.6 g/dl (6.4-8.2)
[2020-07-17 07:36] LABS: CREATININE < 0.2 mg/dL (0.55-1.3); PHOSPHOROUS 3.5 mg/dL (2.5-4.9); SGOT/AST 23 U/L (15-37); SGPT/ALT 24 U/L (13-61)
[2020-07-17 07:44] LABS: ALK PHOS 168 U/L (45-117)
[2020-07-17] MEDS ORDERED: MAGNESIUM SULF 50% (8.12 MEQ/2 ML-1 GM VIAL) IVPB ONE ×2 (08:18→18:45)
[2020-07-17 09:24] LABS: ANISOCYTOSIS 0; MACROCYTOSIS 0; PLATELET ESTIMATE NORMAL
[2020-07-17] MEDS ORDERED: PT OWN MED DRAWER 7, Y5N ONE ×2 (09:31→22:38)
[2020-07-17] MEDS: AMINO ACIDS/PROTEIN HYDROLYS 30 ML LIQUID.PKT PO SCH ×2 (09:42→22:50)
[2020-07-17] MEDS: ENOXAPARIN NA (PORCINE) 80 MG/0.8 ML DISP.SYRIN SQ SCH ×2 (09:42→22:46)
[2020-07-17] MEDS: FLUDROCORTISONE ACETATE 0.1 MG TABLET (FP) PO SCH (09:45)
[2020-07-17] MEDS: BACLOFEN 10 MG TABLET (FP) PO SCH ×2 (09:45→22:50)
[2020-07-17] MEDS: MULTIVIT-MINERALS ORAL LIQUID PO SCH (09:45)
[2020-07-17] MEDS: PANTOPRAZOLE SODIUM 40 MG VIAL IVPUSH SCH (09:46)
[2020-07-17] MEDS: TIGECYCLINE 50 MG in DEXTROSE 5%-WATER 100 ML IVPB SCH ×2 (09:48→22:49)
[2020-07-17] MEDS ORDERED: morphine CARPU-JECT 2 MG/1 ML DISP.SYRIN IVPUSH PRN (11:21)
[2020-07-17] MEDS ORDERED: FUROSEMIDE 40 MG/4 ML INJECTABLE VIAL IVPUSH ONE (13:37)
[2020-07-17] MEDS ORDERED: ALBUMIN HUMAN 25% 12.5 GM/50 ML VIAL IVPB ONE (14:00)
[2020-07-17] MEDS ORDERED: POTASSIUM CHLORIDE ORAL LIQUID 20 MEQ/15 ML PO ONE (18:45)
[2020-07-17 20:42] LABS: INR 1.12 (0.83-1.09); PROTHROMBIN TIME (PATIENT) 13.7 SEC (9.7-13.0)
[2020-07-17 20:45] LABS: ACTIVATED PTT 23.6 SECONDS (25.2-36.5)
[2020-07-17] MEDS: MELATONIN 5 MG TABLETS PO PRN (22:50)
[2020-07-17] MEDS: ACETAMINOPHEN 325 MG TABLET (FP) PO PRN (22:50)
[2020-07-18] MEDS ORDERED: MEROPENEM 1 GM VIAL (RESTRICTED TO ID) IVPB ONE ×4 (01:27→21:36)
[2020-07-18] MEDS ORDERED: DEXTROSE 5%-WATER 100 ML IVPB ONE ×4 (01:28→21:36)
[2020-07-18] MEDS: MIDODRINE HCL 5 MG TABLET PO SCH ×3 (01:34→17:06)
[2020-07-18] MEDS: MEROPENEM 1 GM in DEXTROSE 5%-WATER 100 ML IVPB SCH ×3 (01:34→17:05)
[2020-07-18] MEDS: HYDROCORTISONE SOD SUCCINATE 100 MG/2 ML VIAL IVPUSH SCH ×3 (01:34→17:06)
[2020-07-18] MEDS: GABAPENTIN 250 MG/5 ML ORAL SOLUTION, 470 ML BOTTLE PO SCH ×3 (05:16→21:51)
[2020-07-18 07:25] LABS: HEMATOCRIT 23.9 % (35.4-49); HEMOGLOBIN 7.9 GM/dL (11.7-16.9); MCH 28.7 pg (25.7-33.7); MEAN CELL VOLUME 87.1 fl (80-96); MEAN PLT VOLUME 10.4 fl (7.5-11.1); PLATELET COUNT 146 K/MM3 (134-434); RBC 2.74 M/mm3 (4.00-5.60); RDW 14.6 % (11.9-15.9)
[2020-07-18 08:14] LABS: BLOOD UREA NITROGEN 41.4 mg/dL (7-18); CALCIUM 7.2 mg/dL (8.5-10.1)
[2020-07-18 08:18] LABS: CREATININE 0.2 mg/dL (0.55-1.3); PHOSPHOROUS 3.4 mg/dL (2.5-4.9)
[2020-07-18 08:19] LABS: BILIRUBIN,TOTAL 0.5 mg/dL (0.2-1)
[2020-07-18 08:31] LABS: ALBUMIN 1.7 g/dl (3.4-5.0)
[2020-07-18] MEDS: KCL 10 MEQ IVPB 10 MEQ/100 ML INFUS.BAG IVPB SCH ×3 (08:46→11:29)
[2020-07-18] MEDS ORDERED: PT OWN MED DRAWER 7, Y5N ONE ×2 (09:27→21:37)
[2020-07-18] MEDS: PANTOPRAZOLE SODIUM 40 MG VIAL IVPUSH SCH (09:39)
[2020-07-18] MEDS: TIGECYCLINE 50 MG in DEXTROSE 5%-WATER 100 ML IVPB SCH ×2 (09:46→21:52)
[2020-07-18] MEDS: AMINO ACIDS/PROTEIN HYDROLYS 30 ML LIQUID.PKT PO SCH ×2 (09:52→21:51)
[2020-07-18] MEDS: MULTIVIT-MINERALS ORAL LIQUID PO SCH (09:53)
[2020-07-18] MEDS: FLUDROCORTISONE ACETATE 0.1 MG TABLET (FP) PO SCH (09:53)
[2020-07-18] MEDS: BACLOFEN 10 MG TABLET (FP) PO SCH ×2 (09:54→21:51)
[2020-07-18] MEDS ORDERED: ALBUMIN HUMAN 25% 100 ML VIAL IVPB ONE (12:00)
[2020-07-18] MEDS ORDERED: FUROSEMIDE 40 MG/4 ML INJECTABLE VIAL IVPUSH ONE (15:02)
[2020-07-18] MEDS: MELATONIN 5 MG TABLETS PO PRN (21:52)
[2020-07-18] MEDS ORDERED: ACETAMINOPHEN 1000 MG/100 ML VIAL (NON FORMULARY) IVPB ONE (22:42)
[2020-07-18] MEDS: NOREPINEPHRINE NS PREMIX 16,000 MCG/500 ML BAG IVPB SCH (23:43)
[2020-07-19] MEDS: MEROPENEM 1 GM in DEXTROSE 5%-WATER 100 ML IVPB SCH ×3 (01:08→17:36)
[2020-07-19] MEDS: HYDROCORTISONE SOD SUCCINATE 100 MG/2 ML VIAL IVPUSH SCH ×3 (01:08→17:37)
[2020-07-19] MEDS: MIDODRINE HCL 5 MG TABLET PO SCH ×3 (01:10→17:37)
[2020-07-19] MEDS ORDERED: MORPHINE SULFATE 2 MG/ML VIAL IVPUSH ONE ×3 (05:39→20:37)
[2020-07-19] MEDS ORDERED: morphine CARPU-JECT 4 MG/1 ML DISP.SYRIN IVPUSH ONE (05:39)
[2020-07-19] MEDS ORDERED: MORPHINE SULFATE 2 MG/ML VIAL ONE ×3 (05:51→20:46)
[2020-07-19] MEDS ORDERED: PT OWN MED DRAWER 7, Y5N ONE ×2 (05:51→21:11)
[2020-07-19] MEDS: GABAPENTIN 250 MG/5 ML ORAL SOLUTION, 470 ML BOTTLE PO SCH ×3 (05:53→21:11)
[2020-07-19 07:18] LABS: HEMATOCRIT 23.7 % (35.4-49); HEMOGLOBIN 7.7 GM/dL (11.7-16.9); MCH 28.2 pg (25.7-33.7); MCHC 32.4 g/dl (32.0-35.9); MEAN CELL VOLUME 87.1 fl (80-96); MEAN PLT VOLUME 10.7 fl (7.5-11.1); PLATELET COUNT 139 K/MM3 (134-434); RBC 2.72 M/mm3 (4.00-5.60); RDW 14.2 % (11.9-15.9); WHITE BLOOD COUNT 7.9 K/mm3 (4.0-10.0)
[2020-07-19 07:47] LABS: CHLORIDE 98 mmol/L (98-107); SODIUM 144 mmol/L (136-145)
[2020-07-19 07:56] LABS: CALCIUM 7.6 mg/dL (8.5-10.1); GLUCOSE,RANDOM 74 mg/dL (74-106)
[2020-07-19 07:57] LABS: ALK PHOS 141 U/L (45-117); BLOOD UREA NITROGEN 35.3 mg/dL (7-18); CO2 40 mmol/L (21-32)
[2020-07-19 07:58] LABS: MAGNESIUM 1.7 mg/dL (1.8-2.4)
[2020-07-19 08:00] LABS: CREATININE < 0.2 mg/dL (0.55-1.3); SGOT/AST 22 U/L (15-37)
[2020-07-19 08:02] LABS: BILIRUBIN,TOTAL 0.5 mg/dL (0.2-1); TOT PROT 4.3 g/dl (6.4-8.2)
[2020-07-19 08:03] LABS: SGPT/ALT 23 U/L (13-61)
[2020-07-19 08:05] LABS: ANION GAP 5 MMOL/L (8-16)
[2020-07-19 08:27] LABS: POTASSIUM 2.6 mmol/L (3.5-5.1)
[2020-07-19] MEDS ORDERED: POTASSIUM CHLORIDE 20 MEQ PREMIX IVPB 100 ML IVPB ONE ×3 (08:30→14:00)
[2020-07-19] MEDS ORDERED: MEROPENEM 1 GM VIAL (RESTRICTED TO ID) IVPB ONE ×3 (10:28→20:45)
[2020-07-19] MEDS ORDERED: DEXTROSE 5%-WATER 100 ML IVPB ONE ×3 (10:29→20:45)
[2020-07-19] MEDS: TIGECYCLINE 50 MG in DEXTROSE 5%-WATER 100 ML IVPB SCH ×2 (10:51→21:12)
[2020-07-19] MEDS: PANTOPRAZOLE SODIUM 40 MG VIAL IVPUSH SCH (10:54)
[2020-07-19] MEDS: AMINO ACIDS/PROTEIN HYDROLYS 30 ML LIQUID.PKT PO SCH ×2 (10:54→21:02)
[2020-07-19] MEDS: BACLOFEN 10 MG TABLET (FP) PO SCH ×2 (11:00→21:11)
[2020-07-19] MEDS: MULTIVIT-MINERALS ORAL LIQUID PO SCH (11:00)
[2020-07-19] MEDS: FLUDROCORTISONE ACETATE 0.1 MG TABLET (FP) PO SCH (11:00)
[2020-07-19] MEDS: ENOXAPARIN NA (PORCINE) 80 MG/0.8 ML DISP.SYRIN SQ SCH ×2 (11:04→21:02)
[2020-07-19] MEDS ORDERED: FUROSEMIDE 40 MG/4 ML INJECTABLE VIAL IVPUSH ONE ×2 (11:30→13:30)
[2020-07-19] MEDS ORDERED: ALBUMIN HUMAN 25% 12.5 GM/50 ML VIAL IVPB ONE (13:00)
[2020-07-19 14:31] LABS: POTASSIUM 3.1 mmol/L (3.5-5.1)
[2020-07-19 14:33] LABS: ALBUMIN 2.1 g/dl (3.4-5.0); CALCIUM 7.7 mg/dL (8.5-10.1)
[2020-07-19 14:37] LABS: CREATININE 0.2 mg/dL (0.55-1.3)
[2020-07-19 14:38] LABS: BILIRUBIN,TOTAL 0.9 mg/dL (0.2-1); TOT PROT 4.4 g/dl (6.4-8.2)
[2020-07-19] MEDS ORDERED: GLUCAGON 1 MG KIT IVPUSH ONE (16:00)
[2020-07-19] MEDS ORDERED: SODIUM CHLORIDE 500 ML IV STA (16:30)
[2020-07-19 18:25] LABS: HEMATOCRIT 25.3 % (35.4-49); HEMOGLOBIN 8.3 GM/dL (11.7-16.9); MCH 28.5 pg (25.7-33.7); MCHC 32.8 g/dl (32.0-35.9); MEAN PLT VOLUME 10.4 fl (7.5-11.1); PLATELET COUNT 160 K/MM3 (134-434); RBC 2.91 M/mm3 (4.00-5.60); RDW 14.2 % (11.9-15.9); WHITE BLOOD COUNT 9.9 K/mm3 (4.0-10.0)
[2020-07-19] MEDS ORDERED: ACETAMINOPHEN 1000 MG/100 ML VIAL (NON FORMULARY) IVPB PRN (18:39)
[2020-07-19] MEDS: MELATONIN 5 MG TABLETS PO PRN (21:02)
[2020-07-20] MEDS: MEROPENEM 1 GM in DEXTROSE 5%-WATER 100 ML IVPB SCH ×3 (01:38→17:55)
[2020-07-20] MEDS: MIDODRINE HCL 5 MG TABLET PO SCH ×3 (01:38→17:55)
[2020-07-20] MEDS: HYDROCORTISONE SOD SUCCINATE 100 MG/2 ML VIAL IVPUSH SCH ×3 (01:39→17:55)
[2020-07-20] MEDS ORDERED: METOPROLOL TARTRATE 5 MG/5 ML VIAL ONE (05:22)
[2020-07-20] MEDS ORDERED: MORPHINE SULFATE 2 MG/ML VIAL ONE (05:36)
[2020-07-20] MEDS ORDERED: PT OWN MED DRAWER 7, Y5N ONE ×2 (05:37→09:21)
[2020-07-20] MEDS: NOREPINEPHRINE NS PREMIX 16,000 MCG/500 ML BAG IVPB SCH ×2 (05:40→21:48)
[2020-07-20] MEDS: GABAPENTIN 250 MG/5 ML ORAL SOLUTION, 470 ML BOTTLE PO SCH ×3 (05:41→21:47)
[2020-07-20 07:06] LABS: HEMATOCRIT 27.5 % (35.4-49); HEMOGLOBIN 9.2 GM/dL (11.7-16.9); MCH 29.3 pg (25.7-33.7); MCHC 33.5 g/dl (32.0-35.9); MEAN CELL VOLUME 87.4 fl (80-96); MEAN PLT VOLUME 10.5 fl (7.5-11.1); PLATELET COUNT 148 K/MM3 (134-434); RBC 3.14 M/mm3 (4.00-5.60); RDW 14.7 % (11.9-15.9); WHITE BLOOD COUNT 7.3 K/mm3 (4.0-10.0)
[2020-07-20 07:33] LABS: POTASSIUM 3.2 mmol/L (3.5-5.1)
[2020-07-20 07:36] LABS: CALCIUM 7.9 mg/dL (8.5-10.1)
[2020-07-20 07:37] LABS: ALBUMIN 2.3 g/dl (3.4-5.0); BLOOD UREA NITROGEN 33.9 mg/dL (7-18); MAGNESIUM 1.6 mg/dL (1.8-2.4)
[2020-07-20 07:40] LABS: CREATININE 0.2 mg/dL (0.55-1.3)
[2020-07-20 07:41] LABS: BILIRUBIN,TOTAL 0.8 mg/dL (0.2-1); TOT PROT 4.9 g/dl (6.4-8.2)
[2020-07-20] MEDS ORDERED: MAGNESIUM SULF 50% (8.12 MEQ/2 ML-1 GM VIAL) IVPB ONE ×2 (08:15→10:50)
[2020-07-20] MEDS ORDERED: POTASSIUM CHLORIDE 20 MEQ PREMIX IVPB 100 ML IVPB ONE (09:00)
[2020-07-20] MEDS ORDERED: MEROPENEM 1 GM VIAL (RESTRICTED TO ID) IVPB ONE ×3 (09:20→21:41)
[2020-07-20] MEDS ORDERED: DEXTROSE 5%-WATER 100 ML IVPB ONE ×3 (09:20→21:41)
[2020-07-20] MEDS: ENOXAPARIN NA (PORCINE) 80 MG/0.8 ML DISP.SYRIN SQ SCH ×2 (09:27→21:44)
[2020-07-20] MEDS: ACETAMINOPHEN 325 MG TABLET (FP) PO PRN (09:28)
[2020-07-20] MEDS: AMINO ACIDS/PROTEIN HYDROLYS 30 ML LIQUID.PKT PO SCH ×2 (09:29→21:44)
[2020-07-20] MEDS: PANTOPRAZOLE SODIUM 40 MG VIAL IVPUSH SCH (09:30)
[2020-07-20] MEDS: FLUDROCORTISONE ACETATE 0.1 MG TABLET (FP) PO SCH (09:30)
[2020-07-20] MEDS: TIGECYCLINE 50 MG in DEXTROSE 5%-WATER 100 ML IVPB SCH (09:30)
[2020-07-20] MEDS: BACLOFEN 10 MG TABLET (FP) PO SCH ×2 (09:46→21:47)
[2020-07-20] MEDS: MULTIVIT-MINERALS ORAL LIQUID PO SCH (09:46)
[2020-07-20] MEDS ORDERED: KCL 10 MEQ IVPB 10 MEQ/100 ML INFUS.BAG IVPB SCH ×2 (11:15→11:30)
[2020-07-20] MEDS: KCL 20 MEQ PREMIX BAG 100 ML IVPB SCH ×3 (11:39→15:55)
[2020-07-20] MEDS ORDERED: MORPHINE SULFATE 2 MG/ML VIAL IVPUSH ONE ×3 (18:06→21:15)
[2020-07-21] MEDS: MEROPENEM 1 GM in DEXTROSE 5%-WATER 100 ML IVPB SCH ×2 (02:20→09:13)
[2020-07-21] MEDS: MIDODRINE HCL 5 MG TABLET PO SCH ×3 (02:21→17:16)
[2020-07-21] MEDS: HYDROCORTISONE SOD SUCCINATE 100 MG/2 ML VIAL IVPUSH SCH ×3 (02:21→21:26)
[2020-07-21] MEDS: GABAPENTIN 250 MG/5 ML ORAL SOLUTION, 470 ML BOTTLE PO SCH ×3 (06:20→21:26)
[2020-07-21 06:51] LABS: HEMATOCRIT 28.2 % (35.4-49); HEMOGLOBIN 9.4 GM/dL (11.7-16.9); MCHC 33.1 g/dl (32.0-35.9); MEAN CELL VOLUME 87.5 fl (80-96); MEAN PLT VOLUME 10.3 fl (7.5-11.1); PLATELET COUNT 168 K/MM3 (134-434); RBC 3.23 M/mm3 (4.00-5.60); RDW 14.5 % (11.9-15.9); WHITE BLOOD COUNT 8.9 K/mm3 (4.0-10.0)
[2020-07-21 07:08] LABS: POTASSIUM 3.8 mmol/L (3.5-5.1)
[2020-07-21 07:13] LABS: ALBUMIN 2.3 g/dl (3.4-5.0); BLOOD UREA NITROGEN 33.3 mg/dL (7-18); CALCIUM 7.8 mg/dL (8.5-10.1)
[2020-07-21 07:16] LABS: CREATININE 0.3 mg/dL (0.55-1.3)
[2020-07-21] MEDS: MORPHINE SULFATE 2 MG/ML VIAL IVPUSH PRN ×4 (08:10→18:21)
[2020-07-21] MEDS ORDERED: DEXTROSE 5%-WATER 100 ML IVPB ONE (09:04)
[2020-07-21] MEDS ORDERED: MEROPENEM 1 GM VIAL (RESTRICTED TO ID) IVPB ONE (09:04)
[2020-07-21] MEDS: FLUDROCORTISONE ACETATE 0.1 MG TABLET (FP) PO SCH (09:12)
[2020-07-21] MEDS: PANTOPRAZOLE SODIUM 40 MG VIAL IVPUSH SCH (09:12)
[2020-07-21] MEDS: MULTIVIT-MINERALS ORAL LIQUID PO SCH (09:12)
[2020-07-21] MEDS: AMINO ACIDS/PROTEIN HYDROLYS 30 ML LIQUID.PKT PO SCH ×2 (09:12→21:26)
[2020-07-21] MEDS: BACLOFEN 10 MG TABLET (FP) PO SCH ×2 (09:13→21:26)
[2020-07-21] MEDS: ENOXAPARIN NA (PORCINE) 80 MG/0.8 ML DISP.SYRIN SQ SCH ×2 (09:13→21:27)
[2020-07-21] MEDS: NOREPINEPHRINE NS PREMIX 16,000 MCG/500 ML BAG IVPB SCH (19:17)
[2020-07-21] MEDS ORDERED: PT OWN MED DRAWER 7, Y5N ONE (21:05)
[2020-07-21] MEDS: MELATONIN 5 MG TABLETS PO PRN (21:26)
[2020-07-22] MEDS: NOREPINEPHRINE NS PREMIX 16,000 MCG/500 ML BAG IVPB SCH (00:03)
[2020-07-22] MEDS: ACETAMINOPHEN 325 MG TABLET (FP) PO PRN (01:21)
[2020-07-22] MEDS: DOCUSATE NA 100 MG/10 ML UNIT-DOSE CUPS PO PRN ×2 (01:21→22:02)
[2020-07-22] MEDS: MIDODRINE HCL 5 MG TABLET PO SCH ×3 (01:21→19:34)
[2020-07-22] MEDS ORDERED: morphine SULFATE 4 MG/ML VIAL ONE (02:41)
[2020-07-22] MEDS: MORPHINE SULFATE 2 MG/ML VIAL IVPUSH PRN ×3 (02:45→20:27)
[2020-07-22] MEDS: GABAPENTIN 250 MG/5 ML ORAL SOLUTION, 470 ML BOTTLE PO SCH ×3 (05:33→22:04)
[2020-07-22 06:30] LABS: HEMATOCRIT 26.4 % (35.4-49); HEMOGLOBIN 8.8 GM/dL (11.7-16.9); MCH 29.3 pg (25.7-33.7); MCHC 33.2 g/dl (32.0-35.9); MEAN PLT VOLUME 10.1 fl (7.5-11.1); PLATELET COUNT 159 K/MM3 (134-434); RDW 14.4 % (11.9-15.9); WHITE BLOOD COUNT 9.6 K/mm3 (4.0-10.0)
[2020-07-22 06:59] LABS: BLOOD UREA NITROGEN 33.4 mg/dL (7-18); CALCIUM 7.8 mg/dL (8.5-10.1); MAGNESIUM 1.7 mg/dL (1.8-2.4)
[2020-07-22 07:02] LABS: CREATININE 0.3 mg/dL (0.55-1.3); PHOSPHOROUS 2.5 mg/dL (2.5-4.9)
[2020-07-22 07:19] LABS: POTASSIUM 2.9 mmol/L (3.5-5.1)
[2020-07-22] MEDS ORDERED: POTASSIUM CHLORIDE ORAL LIQUID 20 MEQ/15 ML PO ONE (07:45)
[2020-07-22] MEDS ORDERED: PT OWN MED DRAWER 7, Y5N ONE ×2 (09:10→21:46)
[2020-07-22] MEDS: ENOXAPARIN NA (PORCINE) 80 MG/0.8 ML DISP.SYRIN SQ SCH ×2 (09:21→22:03)
[2020-07-22] MEDS: HYDROCORTISONE SOD SUCCINATE 100 MG/2 ML VIAL IVPUSH SCH ×2 (09:21→22:02)
[2020-07-22] MEDS: PANTOPRAZOLE SODIUM 40 MG VIAL IVPUSH SCH (09:22)
[2020-07-22] MEDS: AMINO ACIDS/PROTEIN HYDROLYS 30 ML LIQUID.PKT PO SCH ×2 (09:22→22:02)
[2020-07-22] MEDS: MULTIVIT-MINERALS ORAL LIQUID PO SCH (09:22)
[2020-07-22] MEDS: BACLOFEN 10 MG TABLET (FP) PO SCH ×2 (09:22→22:07)
[2020-07-22] MEDS: FLUDROCORTISONE ACETATE 0.1 MG TABLET (FP) PO SCH (09:22)
[2020-07-22] MEDS: FUROSEMIDE 40 MG/4 ML INJECTABLE VIAL IVPUSH SCH (13:33)
[2020-07-23] MEDS ORDERED: traZODone HCL 50 MG TABLET (FP) PO ONE (00:13)
[2020-07-23] MEDS: MORPHINE SULFATE 2 MG/ML VIAL IVPUSH PRN ×2 (00:34→03:45)
[2020-07-23] MEDS: MIDODRINE HCL 5 MG TABLET PO SCH ×3 (01:10→17:23)
[2020-07-23] MEDS: GABAPENTIN 250 MG/5 ML ORAL SOLUTION, 470 ML BOTTLE PO SCH ×2 (05:24→13:05)
[2020-07-23 06:49] LABS: BASO % 0.1 % (0-2.0); HEMOGLOBIN 8.4 GM/dL (11.7-16.9); LYMPH % 9.1 % (8-40); MCH 29.5 pg (25.7-33.7); MCHC 33.5 g/dl (32.0-35.9); MEAN PLT VOLUME 10.3 fl (7.5-11.1); MONO % 6.9 % (3.8-10.2); NEUT % 83.9 % (42.8-82.8); PLATELET COUNT 152 K/MM3 (134-434); RBC 2.84 M/mm3 (4.00-5.60); RDW 14.6 % (11.9-15.9); WHITE BLOOD COUNT 10.4 K/mm3 (4.0-10.0)
[2020-07-23 07:03] LABS: ALBUMIN 2.1 g/dl (3.4-5.0); CALCIUM 7.7 mg/dL (8.5-10.1)
[2020-07-23 07:04] LABS: BLOOD UREA NITROGEN 34.5 mg/dL (7-18); MAGNESIUM 1.7 mg/dL (1.8-2.4)
[2020-07-23 07:07] LABS: CREATININE 0.2 mg/dL (0.55-1.3); PHOSPHOROUS 2.3 mg/dL (2.5-4.9)
[2020-07-23 07:08] LABS: BILIRUBIN,TOTAL 0.6 mg/dL (0.2-1); TOT PROT 4.8 g/dl (6.4-8.2)
[2020-07-23 07:13] LABS: POTASSIUM 2.7 mmol/L (3.5-5.1)
[2020-07-23] MEDS ORDERED: POTASSIUM CHLORIDE ORAL LIQUID 20 MEQ/15 ML PO ONE ×2 (08:30→12:30)
[2020-07-23] MEDS: KCL 10 MEQ IVPB 10 MEQ/100 ML INFUS.BAG IVPB SCH ×3 (09:00→11:00)
[2020-07-23] MEDS ORDERED: PT OWN MED DRAWER 7, Y5N ONE ×2 (09:42→16:15)
[2020-07-23] MEDS: FUROSEMIDE 40 MG/4 ML INJECTABLE VIAL IVPUSH SCH (09:49)
[2020-07-23] MEDS: FLUDROCORTISONE ACETATE 0.1 MG TABLET (FP) PO SCH (09:49)
[2020-07-23] MEDS: MULTIVIT-MINERALS ORAL LIQUID PO SCH (09:49)
[2020-07-23] MEDS: ENOXAPARIN NA (PORCINE) 80 MG/0.8 ML DISP.SYRIN SQ SCH (09:50)
[2020-07-23] MEDS: AMINO ACIDS/PROTEIN HYDROLYS 30 ML LIQUID.PKT PO SCH (09:50)
[2020-07-23] MEDS: BACLOFEN 10 MG TABLET (FP) PO SCH (09:50)
[2020-07-23] MEDS: HYDROCORTISONE SOD SUCCINATE 100 MG/2 ML VIAL IVPUSH SCH (09:51)
[2020-07-23] MEDS: PANTOPRAZOLE SODIUM 40 MG VIAL IVPUSH SCH (09:51)
[2020-07-23] MEDS ORDERED: SPIRONOLACTONE 25 MG TABLET PO ONE (13:53)
[2020-07-23] MEDS ORDERED: MAGNESIUM SULF 50% (8.12 MEQ/2 ML-1 GM VIAL) IVPB ONE (13:54)
[2020-07-23] MEDS ORDERED: FENTANYL PATCH WASTE MC PRN (14:10)
[2020-07-23] MEDS ORDERED: fentaNYL 12mcg/hr PATCH.TD72 TD SCH (14:15)
[2020-07-23] MEDS: DOCUSATE SODIUM 100 MG CAPSULE (FP) PO SCH (14:54)
[2020-07-23] MEDS: ALBUMIN HUMAN 25% 12.5 GM/50 ML VIAL IVPB SCH ×2 (15:00→20:38)
[2020-07-23] MEDS ORDERED: NALOXONE HCL 0.4 MG/ML VIAL IVPUSH ONE (18:04)
[2020-07-23] MEDS: ACETAMINOPHEN 325 MG TABLET (FP) PO PRN (19:39)
[2020-07-24] MEDS: DOCUSATE SODIUM 100 MG CAPSULE (FP) PO SCH ×4 (00:04→22:54)
[2020-07-24] MEDS: AMINO ACIDS/PROTEIN HYDROLYS 30 ML LIQUID.PKT PO SCH ×3 (00:05→22:53)
[2020-07-24] MEDS: GABAPENTIN 250 MG/5 ML ORAL SOLUTION, 470 ML BOTTLE PO SCH ×4 (00:05→22:52)
[2020-07-24] MEDS: ENOXAPARIN NA (PORCINE) 80 MG/0.8 ML DISP.SYRIN SQ SCH ×3 (00:05→22:52)
[2020-07-24] MEDS: HYDROCORTISONE SOD SUCCINATE 100 MG/2 ML VIAL IVPUSH SCH ×3 (00:06→22:53)
[2020-07-24] MEDS ORDERED: PT OWN MED DRAWER 7, Y5N ONE ×5 (00:07→22:51)
[2020-07-24] MEDS: BACLOFEN 10 MG TABLET (FP) PO SCH ×3 (00:08→22:53)
[2020-07-24] MEDS: MIDODRINE HCL 5 MG TABLET PO SCH ×3 (02:19→17:25)
[2020-07-24] MEDS ORDERED: POTASSIUM CHLORIDE TABS 20 MEQ TABLET.ER (FP) PO ONE (09:00)
[2020-07-24] MEDS: MULTIVIT-MINERALS ORAL LIQUID PO SCH (09:23)
[2020-07-24] MEDS: KCL 10 MEQ IVPB 10 MEQ/100 ML INFUS.BAG IVPB SCH ×3 (09:23→11:30)
[2020-07-24] MEDS: FUROSEMIDE 40 MG/4 ML INJECTABLE VIAL IVPUSH SCH (09:24)
[2020-07-24] MEDS: FLUDROCORTISONE ACETATE 0.1 MG TABLET (FP) PO SCH (09:24)
[2020-07-24] MEDS: PANTOPRAZOLE SODIUM 40 MG VIAL IVPUSH SCH (09:28)
[2020-07-24] MEDS: NAPH,MB-DB/K PH,MBDB POWDER PACKET PO SCH ×2 (13:59→22:53)
[2020-07-24] MEDS: ALBUMIN HUMAN 25% 12.5 GM/50 ML VIAL IVPB SCH ×2 (17:24→17:30)
[2020-07-24 18:38] LABS: CHLORIDE 97 mmol/L (98-107); SODIUM 141 mmol/L (136-145)
[2020-07-24 18:41] LABS: BLOOD UREA NITROGEN 24.8 mg/dL (7-18); CO2 43 mmol/L (21-32); GLUCOSE,RANDOM 98 mg/dL (74-106); MAGNESIUM 1.7 mg/dL (1.8-2.4)
[2020-07-24 18:44] LABS: CREATININE < 0.2 mg/dL (0.55-1.3); SGOT/AST 27 U/L (15-37); SGPT/ALT 25 U/L (13-61)
[2020-07-24 18:46] LABS: BILIRUBIN,TOTAL 0.5 mg/dL (0.2-1); TOT PROT 5.4 g/dl (6.4-8.2)
[2020-07-24 18:47] LABS: ALK PHOS 196 U/L (45-117)
[2020-07-24 18:52] LABS: ALBUMIN 2.7 g/dl (3.4-5.0); ANION GAP 0 MMOL/L (8-16)
[2020-07-24 18:58] LABS: POTASSIUM 2.9 mmol/L (3.5-5.1)
[2020-07-24] MEDS: POTASSIUM CHLORIDE 20 MEQ PREMIX IVPB 100 ML IVPB SCH ×2 (19:41→22:30)
[2020-07-24] MEDS ORDERED: ALBUTEROL SO4 0.083% IH SOL 2.5 MG/3 ML VIAL.NEB. NEB PRN (21:36)
[2020-07-24 23:42] LABS: PHOSPHOROUS 2.2 mg/dL (2.5-4.9)
[2020-07-25] MEDS: POTASSIUM CHLORIDE 20 MEQ PREMIX IVPB 100 ML IVPB SCH (00:53)
[2020-07-25] MEDS ORDERED: MAGNESIUM SULF 50% (8.12 MEQ/2 ML-1 GM VIAL) IVPB ONE (01:30)
[2020-07-25] MEDS: MIDODRINE HCL 5 MG TABLET PO SCH ×3 (02:22→17:55)
[2020-07-25] MEDS ORDERED: PT OWN MED DRAWER 7, Y5N ONE ×5 (06:34→23:00)
[2020-07-25] MEDS: NAPH,MB-DB/K PH,MBDB POWDER PACKET PO SCH ×2 (06:36→15:45)
[2020-07-25] MEDS: GABAPENTIN 250 MG/5 ML ORAL SOLUTION, 470 ML BOTTLE PO SCH ×3 (06:36→23:19)
[2020-07-25] MEDS: DOCUSATE SODIUM 100 MG CAPSULE (FP) PO SCH ×3 (06:36→23:19)
[2020-07-25 06:58] LABS: HEMATOCRIT 20.5 % (35.4-49); MCH 29.2 pg (25.7-33.7); MCHC 33.1 g/dl (32.0-35.9); MEAN CELL VOLUME 88.2 fl (80-96); MEAN PLT VOLUME 10.4 fl (7.5-11.1); PLATELET COUNT 124 K/MM3 (134-434); RBC 2.32 M/mm3 (4.00-5.60); RDW 14.7 % (11.9-15.9); WHITE BLOOD COUNT 13.6 K/mm3 (4.0-10.0)
[2020-07-25 07:15] LABS: HEMOGLOBIN 6.8 GM/dL (11.7-16.9)
[2020-07-25 07:20] LABS: POTASSIUM 3.5 mmol/L (3.5-5.1)
[2020-07-25 07:23] LABS: ALBUMIN 2.7 g/dl (3.4-5.0); BLOOD UREA NITROGEN 22.8 mg/dL (7-18); MAGNESIUM 2.1 mg/dL (1.8-2.4)
[2020-07-25 07:26] LABS: CREATININE 0.2 mg/dL (0.55-1.3); PHOSPHOROUS 2.4 mg/dL (2.5-4.9)
[2020-07-25 07:27] LABS: BILIRUBIN,TOTAL 0.5 mg/dL (0.2-1)
[2020-07-25 07:28] LABS: TOT PROT 5.3 g/dl (6.4-8.2)
[2020-07-25] MEDS ORDERED: MEROPENEM 1 GM in DEXTROSE 5%-WATER 100 ML IVPB ONE ×2 (08:00→08:45)
[2020-07-25] MEDS: HYDROCORTISONE SOD SUCCINATE 100 MG/2 ML VIAL IVPUSH SCH ×2 (09:08→23:20)
[2020-07-25] MEDS ORDERED: MEROPENEM 1 GM VIAL (RESTRICTED TO ID) IVPB ONE ×2 (09:11→17:46)
[2020-07-25] MEDS ORDERED: DEXTROSE 5%-WATER 100 ML IVPB ONE ×2 (09:11→17:47)
[2020-07-25] MEDS ORDERED: LORazepam 2 MG/ML SDV VIAL IVPUSH ONE (09:30)
[2020-07-25] MEDS: MULTIVIT-MINERALS ORAL LIQUID PO SCH (10:06)
[2020-07-25] MEDS: FLUDROCORTISONE ACETATE 0.1 MG TABLET (FP) PO SCH (10:06)
[2020-07-25] MEDS: FUROSEMIDE 40 MG/4 ML INJECTABLE VIAL IVPUSH SCH (10:06)
[2020-07-25] MEDS: BACLOFEN 10 MG TABLET (FP) PO SCH ×2 (10:06→23:18)
[2020-07-25] MEDS: AMINO ACIDS/PROTEIN HYDROLYS 30 ML LIQUID.PKT PO SCH ×2 (10:07→23:20)
[2020-07-25] MEDS: PANTOPRAZOLE SODIUM 40 MG VIAL IVPUSH SCH (10:08)
[2020-07-25] MEDS: ALBUTEROL SO4 0.083% IH SOL 2.5 MG/3 ML VIAL.NEB. NEB SCH ×4 (12:00→23:46)
[2020-07-25] MEDS: ACETYLCYSTEINE 20% 200MG/ML 4 ML VIAL *FOR ORAL / INH USE ONLY NEB SCH ×4 (12:00→23:46)
[2020-07-25] MEDS ORDERED: SPIRONOLACTONE 25 MG TABLET PO ONE (13:49)
[2020-07-25] MEDS: KCL 10 MEQ IVPB 10 MEQ/100 ML INFUS.BAG IVPB SCH ×3 (14:45→16:57)
[2020-07-25] MEDS: MEROPENEM 1 GM in DEXTROSE 5%-WATER 100 ML IVPB SCH (17:55)
[2020-07-25 19:36] LABS: HEMATOCRIT 26.4 % (35.4-49); HEMOGLOBIN 8.8 GM/dL (11.7-16.9); MCH 29.5 pg (25.7-33.7); MCHC 33.5 g/dl (32.0-35.9); MEAN CELL VOLUME 88.1 fl (80-96); MEAN PLT VOLUME 10.3 fl (7.5-11.1); PLATELET COUNT 127 K/MM3 (134-434); RBC 2.99 M/mm3 (4.00-5.60); RDW 14.5 % (11.9-15.9); WHITE BLOOD COUNT 19.9 K/mm3 (4.0-10.0)
[2020-07-26] MEDS ORDERED: MEROPENEM 1 GM VIAL (RESTRICTED TO ID) IVPB ONE ×3 (02:59→17:20)
[2020-07-26] MEDS ORDERED: DEXTROSE 5%-WATER 100 ML IVPB ONE ×3 (02:59→17:20)
[2020-07-26] MEDS: MEROPENEM 1 GM in DEXTROSE 5%-WATER 100 ML IVPB SCH ×3 (03:00→17:25)
[2020-07-26] MEDS: ACETYLCYSTEINE 20% 200MG/ML 4 ML VIAL *FOR ORAL / INH USE ONLY NEB SCH ×6 (04:47→23:27)
[2020-07-26] MEDS: ALBUTEROL SO4 0.083% IH SOL 2.5 MG/3 ML VIAL.NEB. NEB SCH ×6 (04:47→23:27)
[2020-07-26] MEDS: DOCUSATE SODIUM 100 MG CAPSULE (FP) PO SCH ×3 (06:32→22:10)
[2020-07-26] MEDS: GABAPENTIN 250 MG/5 ML ORAL SOLUTION, 470 ML BOTTLE PO SCH ×3 (06:32→22:09)
[2020-07-26 07:05] LABS: HEMATOCRIT 24.7 % (35.4-49); HEMOGLOBIN 8.5 GM/dL (11.7-16.9); MCH 30.1 pg (25.7-33.7); MCHC 34.4 g/dl (32.0-35.9); MEAN CELL VOLUME 87.4 fl (80-96); MEAN PLT VOLUME 10.6 fl (7.5-11.1); PLATELET COUNT 127 K/MM3 (134-434); RBC 2.82 M/mm3 (4.00-5.60); RDW 14.7 % (11.9-15.9); WHITE BLOOD COUNT 17.1 K/mm3 (4.0-10.0)
[2020-07-26 07:28] LABS: POTASSIUM 3.3 mmol/L (3.5-5.1)
[2020-07-26 07:30] LABS: CALCIUM 8.3 mg/dL (8.5-10.1)
[2020-07-26 07:32] LABS: ALBUMIN 2.6 g/dl (3.4-5.0); MAGNESIUM 1.8 mg/dL (1.8-2.4)
[2020-07-26 07:35] LABS: CREATININE 0.2 mg/dL (0.55-1.3); PHOSPHOROUS 3.2 mg/dL (2.5-4.9)
[2020-07-26 07:36] LABS: BILIRUBIN,TOTAL 1.3 mg/dL (0.2-1)
[2020-07-26 07:37] LABS: TOT PROT 5.6 g/dl (6.4-8.2)
[2020-07-26 07:42] LABS: BLOOD UREA NITROGEN 22.1 mg/dL (7-18)
[2020-07-26] MEDS ORDERED: PT OWN MED DRAWER 7, Y5N ONE ×2 (09:14→22:06)
[2020-07-26] MEDS: MULTIVIT-MINERALS ORAL LIQUID PO SCH (09:28)
[2020-07-26] MEDS: FLUDROCORTISONE ACETATE 0.1 MG TABLET (FP) PO SCH (09:28)
[2020-07-26] MEDS: KCL 10 MEQ IVPB 10 MEQ/100 ML INFUS.BAG IVPB SCH ×3 (09:28→11:49)
[2020-07-26] MEDS: BACLOFEN 10 MG TABLET (FP) PO SCH ×2 (09:30→22:09)
[2020-07-26] MEDS: NAPH,MB-DB/K PH,MBDB POWDER PACKET PO SCH (09:33)
[2020-07-26] MEDS: HYDROCORTISONE SOD SUCCINATE 100 MG/2 ML VIAL IVPUSH SCH ×2 (09:33→22:09)
[2020-07-26] MEDS: PANTOPRAZOLE SODIUM 40 MG VIAL IVPUSH SCH (09:33)
[2020-07-26] MEDS: AMINO ACIDS/PROTEIN HYDROLYS 30 ML LIQUID.PKT PO SCH ×2 (09:33→22:09)
[2020-07-26] MEDS: MIDODRINE HCL 5 MG TABLET PO SCH ×2 (10:05→17:26)
[2020-07-26] MEDS: ACETAMINOPHEN 325 MG TABLET (FP) PO PRN (11:10)
[2020-07-26] MEDS: FUROSEMIDE 40 MG/4 ML INJECTABLE VIAL IVPUSH SCH (11:44)
[2020-07-26 13:59] VITALS: BMI 22.7
[2020-07-26] MEDS ORDERED: ACETAMINOPHEN 325 MG TABLET (FP) PO PRN (15:04)
[2020-07-26] MEDS ORDERED: oxyCODONE HCL 5 MG TABLET PO PRN (15:16)
[2020-07-26] MEDS ORDERED: SPIRONOLACTONE 25 MG TABLET PO ONE (15:46)
[2020-07-26] MEDS: MORPHINE SULFATE 2 MG/ML VIAL IVPUSH PRN ×2 (17:26→22:28)
[2020-07-26] MEDS ORDERED: SODIUM CHLORIDE 500 ML IV STA ×2 (19:40→22:11)
[2020-07-27] MEDS ORDERED: LORazepam 2 MG/ML SDV VIAL IVPUSH STA (00:56)
[2020-07-27] MEDS ORDERED: DEXTROSE 5%-WATER 100 ML IVPB ONE ×2 (01:58→09:22)
[2020-07-27] MEDS ORDERED: MEROPENEM 1 GM VIAL (RESTRICTED TO ID) IVPB ONE ×2 (01:58→09:22)
[2020-07-27] MEDS: MEROPENEM 1 GM in DEXTROSE 5%-WATER 100 ML IVPB SCH ×2 (01:59→09:54)
[2020-07-27] MEDS: ALBUTEROL SO4 0.083% IH SOL 2.5 MG/3 ML VIAL.NEB. NEB SCH ×4 (03:01→15:00)
[2020-07-27] MEDS: ACETYLCYSTEINE 20% 200MG/ML 4 ML VIAL *FOR ORAL / INH USE ONLY NEB SCH ×4 (03:01→15:00)
[2020-07-27] MEDS: MORPHINE SULFATE 2 MG/ML VIAL IVPUSH PRN ×4 (05:51→18:20)
[2020-07-27] MEDS ORDERED: PT OWN MED DRAWER 7, Y5N ONE ×2 (06:33→09:23)
[2020-07-27] MEDS: GABAPENTIN 250 MG/5 ML ORAL SOLUTION, 470 ML BOTTLE PO SCH ×2 (06:35→14:06)
[2020-07-27] MEDS: DOCUSATE SODIUM 100 MG CAPSULE (FP) PO SCH ×2 (06:35→13:28)
[2020-07-27] MEDS: MULTIVIT-MINERALS ORAL LIQUID PO SCH (09:53)
[2020-07-27] MEDS: FLUDROCORTISONE ACETATE 0.1 MG TABLET (FP) PO SCH (09:54)
[2020-07-27] MEDS: BACLOFEN 10 MG TABLET (FP) PO SCH (09:54)
[2020-07-27] MEDS: NAPH,MB-DB/K PH,MBDB POWDER PACKET PO SCH (09:54)
[2020-07-27] MEDS: HYDROCORTISONE SOD SUCCINATE 100 MG/2 ML VIAL IVPUSH SCH (09:55)
[2020-07-27] MEDS: AMINO ACIDS/PROTEIN HYDROLYS 30 ML LIQUID.PKT PO SCH (09:55)
[2020-07-27] MEDS: PANTOPRAZOLE SODIUM 40 MG VIAL IVPUSH SCH (09:55)
[2020-07-27 10:00] LABS: EPI CELLS >36 /uL (0-25.1); HYALINE CASTS 16 /uL (0-3.1); URINE APPEARANCE CLOUDY; URINE BACTERIA 25 /uL (0-1359); URINE BILIRUBIN NEGATIVE (NEGATIVE); URINE COLOR YELLOW; URINE GLUCOSE (UA) NEGATIVE (NEGATIVE); URINE KETONE NEGATIVE (NEGATIVE); URINE LEUK ESTERASE NEGATIVE (NEGATIVE); URINE NITRITE NEGATIVE (NEGATIVE); URINE PROTEIN 1+ (NEGATIVE); URINE UROBILINOGEN 0.2 mg/dL (0.2-1.0)
[2020-07-27] MEDS: FUROSEMIDE 40 MG/4 ML INJECTABLE VIAL IVPUSH SCH (10:39)
[2020-07-27] MEDS: MIDODRINE HCL 5 MG TABLET PO SCH (10:40)
[2020-07-27] MEDS ORDERED: LORazepam 2 MG/ML SDV VIAL IVPUSH ONE (12:02)
[2020-07-27 12:23] LABS: URINE RBC 200.9 /uL (0-23.9); URINE WBC 61.2 /uL (0-25.8)
[2020-07-27 12:24] LABS: YEAST PRESENT (NEGATIVE)
[2020-07-27 12:26] LABS: URINE CRYSTALS PRESENT /hpf
[2020-07-27 14:04] VITALS: BP 82/50
[2020-07-27] MEDS ORDERED: DEXMEDETOMIDINE IN 0.9 % NACL 400 MCG/100 ML VIAL IVPB SCH (15:15)
[2020-07-27] MEDS ORDERED: MIDAZOLAM HCL 2 MG/2 ML SINGLE DOSE VIAL ONE (15:15)
[2020-07-27] MEDS ORDERED: LORazepam 2 MG/ML SDV VIAL IVPUSH PRN (15:28)
[2020-07-27] MEDS ORDERED: MORPHINE SULFATE/0.9% NACL/PF 100 MG/100 ML BAG IVPB SCH (15:30)
[2020-07-27] MEDS ORDERED: MIDAZOLAM HCL 2 MG/2 ML SINGLE DOSE VIAL IVPUSH ONE (16:19)
[2020-07-27] MEDS ORDERED: HEPARIN NA (PORCINE) 5,000 UNITS/ML 1ML VIAL SQ ONE (16:54)
[2020-07-27] MEDS: LORazepam 2 MG/ML SDV VIAL IVPUSH PRN ×2 (18:41→20:00)
[2020-07-27 18:47] LABS: EPI CELLS >36 /uL (0-25.1); HYALINE CASTS 15 /uL (0-3.1); URINE APPEARANCE CLOUDY; URINE BACTERIA 64 /uL (0-1359); URINE BILIRUBIN NEGATIVE (NEGATIVE); URINE COLOR YELLOW; URINE GLUCOSE (UA) NEGATIVE (NEGATIVE); URINE KETONE NEGATIVE (NEGATIVE); URINE LEUK ESTERASE TRACE (NEGATIVE); URINE NITRITE NEGATIVE (NEGATIVE); URINE PROTEIN 1+ (NEGATIVE); URINE UROBILINOGEN 0.2 mg/dL (0.2-1.0); URINE WBC 121 /uL (0-25.8)
[2020-07-27] MEDS ORDERED: MORPHINE SULFATE 2 MG/ML VIAL IVPUSH PRN (19:23)
[2020-07-27] MEDS ORDERED: HEPARIN NA (PORCINE) 5,000 UNITS/ML 1ML VIAL IVPUSH PRN (19:27)
[2020-07-27 20:09] LABS: URINE CRYSTALS CALCIUM OXALATE /hpf; URINE RBC 78 /uL (0-23.9); YEAST PRESENT (NEGATIVE)
[2020-07-27 21:33] VITALS: TEMP 97.5
[2020-07-27 21:34] VITALS: PULSE 53
[2020-08-02 14:43] LABS: WHITE BLOOD COUNT 35.8 K/mm3 (4.0-10.0)
== END 2020-07-27 20:35 | disposition expired | DRG 4 ==
LOC: JER 20:03 → JICU 21:26 → J5S 06-22 19:57 → JICU-6 06-26 11:11 → JICU 07-03 21:28
PROVIDERS: ADMIT Internal Medicine Pulmonary Disease; ATTEND Internal Medicine
PROC: 5A1955Z Respiratory Ventilation, Greater than 96 Consecutive Hours (ICD-10-PCS; 2020-06-18)
PROC: 0BH17EZ Insertion of Endotracheal Airway into Trachea, Via Natural or Artificial Opening (ICD-10-PCS; 2020-06-18)
PROC: XW033E5 Introduction of Remdesivir Anti-infective into Peripheral Vein, Percutaneous Approach, New Technology Group 5 (ICD-10-PCS; 2020-06-19)
PROC: XW13325 Transfusion of Convalescent Plasma (Nonautologous) into Peripheral Vein, Percutaneous Approach, New Technology Group 5 (ICD-10-PCS; 2020-06-19)
PROC: 05H633Z Insertion of Infusion Device into Left Subclavian Vein, Percutaneous Approach (ICD-10-PCS; 2020-06-26)
PROC: B547ZZA Ultrasonography of Left Subclavian Vein, Guidance (ICD-10-PCS; 2020-06-26)
PROC: 05HN33Z Insertion of Infusion Device into Left Internal Jugular Vein, Percutaneous Approach (ICD-10-PCS; 2020-07-11)
PROC: B544ZZA Ultrasonography of Left Jugular Veins, Guidance (ICD-10-PCS; 2020-07-11)
PROC: 30233N1 Transfusion of Nonautologous Red Blood Cells into Peripheral Vein, Percutaneous Approach (ICD-10-PCS; 2020-07-12)
PROC: 0BJ08ZZ Inspection of Tracheobronchial Tree, Via Natural or Artificial Opening Endoscopic (ICD-10-PCS; 2020-07-16)
PROC: 0B113F4 Bypass Trachea to Cutaneous with Tracheostomy Device, Percutaneous Approach (ICD-10-PCS; principal; 2020-07-16 11:30)
PROC: 0DH63UZ Insertion of Feeding Device into Stomach, Percutaneous Approach (ICD-10-PCS; 2020-07-21)
PROC: BD12ZZZ Fluoroscopy of Stomach (ICD-10-PCS; 2020-07-21)
PROC: 05HM33Z Insertion of Infusion Device into Right Internal Jugular Vein, Percutaneous Approach (ICD-10-PCS; 2020-07-27)
PROC: B543ZZA Ultrasonography of Right Jugular Veins, Guidance (ICD-10-PCS; 2020-07-27)
DX: A41.89 Other specified sepsis (principal); U07.1 COVID-19; J12.82 Pneumonia due to coronavirus disease 2019; J96.01 Acute respiratory failure with hypoxia; G92 Toxic encephalopathy; R65.21 Severe sepsis with septic shock; I21.4 Non-ST elevation (NSTEMI) myocardial infarction; N39.0 Urinary tract infection, site not specified; G82.20 Paraplegia, unspecified; N17.9 Acute kidney failure, unspecified; E87.0 Hyperosmolality and hypernatremia; E87.2 Acidosis; I47.1 Supraventricular tachycardia; L89.152 Pressure ulcer of sacral region, stage 2; T40.2X4A Poisoning by other opioids, undetermined, initial encounter; T42.4X4A Poisoning by benzodiazepines, undetermined, initial encounter; D72.829 Elevated white blood cell count, unspecified; K57.90 Diverticulosis of intestine, part unspecified, without perforation or abscess without bleeding; E87.6 Hypokalemia; R00.1 Bradycardia, unspecified; I48.0 Paroxysmal atrial fibrillation; D64.9 Anemia, unspecified; E87.70 Fluid overload, unspecified
CPT/HCPCS: 36415; 36430; 36600; 49440; 70450-TC; 70496-TC; 70498-TC; 71045-TC-FY; 74018-TC-FY; 80048; 80053; 81003; 82043; 82248; 82272; 82533; 82550; 82565; 82570; 82607; 82728; 82746; 82803; 82962; 83540; 83550; 83605; 83615; 83735; 84100; 84132; 84156; 84439; 84443; 84466; 84484; 85025; 85027; 85045; 85379; 85610; 85730; 86140; 86769; 86850; 86900; 86901; 86922; 87040; 87045; 87046; 87070; 87077; 87086; 87186; 87205; 87804; 93005; 93010; 93306-TC; 94002; 94640; 97162-GP; 99291; C9803; E0186; J0131; J0282; J0475; J1100; J1644; J3243; P9017; P9047; P9058; Q9967; U0003